=== PATIENT | male | born 1965 | race African-American/Black ===

== ENCOUNTER 2016-08-16 12:17 | Inpatient (IN) | payer OTHER ==
[2016-08-16 13:40] VITALS: BMI 24.3
--- NOTE | 2016-08-16 14:03 | HP ---
CIWA Score - CIWA Score Nausea/Vomitin Muscle Tremors: 3 Anxiety: 3 Agitation: 3 Paroxysmal Sweats: 2 Orientation: 0-Oriented Tacttile Disturbances: 2-Mild Itch/Numbness/Burn Auditory Disturbances: 2-Mild Harshness/Frighten Visual Disturbances: 2-Mild Sensitivity Headache: 2-Mild CIWA-Ar Total Score: 22 Admission ROS BHS - HPI Chief Complaint: I NEED HELP TO STOP DRINKING ALCOHOL,COCAINE AND MARIJUANA History of Present Illness: THIS 51 YEARS OLD MALE WITH ALCOHOL,COCAINE AND MARIJUANA DEPENDENCE,LAST DETOX [facility] IN 04/15 [place] ALCOHOL RELATED HTN LONGEST PERIOD OF SOBRIETY 8 MONTHS OLD [place] Exam Limitations: No Limitations - Ebola screening Have you traveled outside of the country in the last 21 days: No Have you had contact with anyone from an Ebola affected area: No Have you been sick,other than usual withdrawal symptoms: No - Review of Systems Constitutional: Loss of Appetite, Malaise, Night Sweats, Changes in sleep, Weakness EENT: reports: Nose Congestion Respiratory: reports: No Symptoms reported Cardiac: reports: No Symptoms Reported, Other ([facility] [place] IN 2014) GI: reports: Nausea, Poor Appetite, Abdominal cramping : reports: No Symptoms Reported Musculoskeletal: reports: Back Pain, Muscle Pain Neuro: reports: Headache, Tremors Endocrine: reports: No Symptoms Reported Hematology: reports: No Symptoms Reported Psychiatric: reports: No Sypmtoms Reported, Judgement Intact, Mood/Affect Appropiate, Orientated x3 Patient History - Patient Medical History Hx Anemia: No Hx Asthma: No Hx Chronic Obstructive Pulmonary Disease (COPD): No Hx Cancer: No Hx Cardiac Disorders: Yes (OLD [place] 2 YEARS AGO) Hx Congestive Heart Failure: No Hx Hypertension: Yes (ON MED) Hx Hypercholesterolemia: Yes (ON MED) Hx Pacemaker: No HX Cerebrovascular Accident: No Hx Seizures: No Hx Dementia: No Hx Diabetes: No Hx Gastrointestinal Disorders: No Hx Liver Disease: No Hx Genitourinary Disorders: No Hx Sexually Transmitted Disorders: No Hx Renal Disease (ESRD): No Hx Thyroid Disease: No Hx Human Immunodeficiency Virus (HIV): No (LAST 04/15) Hx Hepatitis C: No Hx Depression: No Hx Suicide Attempt: No Hx Bipolar Disorder: No Hx Schizophrenia: No Other Medical History: NO SUICIDAL,NO HOMICIDAL - Patient Surgical History Hx Abdominal Surgery: Yes (BILATERAL INGUINAL HERNIA) - PPD History Previous Implant?: Yes Documented Results: Positive w/o proof PPD to be Administered?: Yes - Smoking Cessation Smoking history: Current every day smoker Have you smoked in the past 12 months: Yes Aproximately how many cigarettes per day: 20 Hx Chewing Tobacco Use: No Initiated information on smoking cessation: Yes 'Breaking Loose' booklet given: 08/16/16 - Substance & Tx. History Hx Alcohol Use: Yes Hx Substance Use: Yes Substance Use Type: Alcohol, Cocaine, Marijuana Hx Substance Use Treatment: Yes (04/15 [facility]) Family Disease History - Family Disease History Family History: Denies Admission Physical Exam [facility] - Vital Signs Vital Signs: Vital Signs - 24 hr 08/16/16 13:37 Temperature 98.6 F Pulse Rate 59 L Respiratory 18 Rate Blood Pressure 124/86 - Physical General Appearance: Yes: Moderate Distress, Tremorous, Irritable, Sweating, Anxious HEENTM: Yes: Normal ENT Inspection, REBECCA, Pharynx Normal Respiratory: Yes: Within Normal Limits, Lungs Clear, Normal Breath Sounds, No Respiratory Distress Neck: Yes: Within Normal Limits, Supple, Trachea in good position Breast: Yes: Within Normal Limits Cardiology: Yes: Within Normal Limits, Regular Rate, S1, S2 Abdominal: Yes: Within Normal Limits, Normal Bowel Sounds, Non Tender, Flat, Soft Genitourinary: Yes: Within Normal Limits Back: Yes: Muscle Spasm Musculoskeletal: Yes: full range of Motion, Back pain, Muscle Pain Extremities: Yes: Within Normal Limits, Normal Range of Motion, Tremors 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: Yes: product manager II-XII NML intact, Fully Oriented, Alert, Motor Strength 5/5 Integumentary: Yes: Dry Lymphatic: Yes: Within Normal Limits - Diagnostic (1) Alcohol dependence with uncomplicated withdrawal Current Visit: Yes Status: Acute (2) Cocaine dependence Current Visit: Yes Status: Acute (3) Cannabis dependence Current Visit: Yes Status: Acute (4) Hypertension Current Visit: Yes Status: Acute (5) Old [place] (myocardial infarction) Current Visit: Yes Status: Acute (6) Low back pain Current Visit: Yes Status: Acute (7) Hyperlipidemia Current Visit: Yes Status: Acute Cleared for Admission [facility] - Detox or Rehab [facility] Level of Care: Medically Managed Detox Regimen/Protocol: Librium S Breath Alcohol Content Breath Alcohol Content: 0 Urine Drug Screen - Results Drug Screen Negative: No Urine Drug Screen Results: THC-Marijuana, DEEPIKA-Cocaine
[2016-08-16] MEDS ORDERED: guaiFENesin/D-METHORPHAN HB 10 ML UNIT-DOSE CUPS PO PRN (14:27)
[2016-08-16] MEDS ORDERED: diphenhydrAMINE HCL 50 MG CAPSULE PO PRN (14:27)
[2016-08-16] MEDS ORDERED: IBUPROFEN 400 MG TABLET (FP) PO PRN (14:27)
[2016-08-16] MEDS ORDERED: ACETAMINOPHEN 325 MG TABLET (FP) PO PRN (14:27)
[2016-08-16] MEDS ORDERED: MAGNESIUM HYDROX 2400MG/30ML ORAL SUSPENSION 30 ML CUP PO PRN (14:27)
[2016-08-16] MEDS ORDERED: MAGNESIUM CITRATE 300 ML BOTTLE PO PRN (14:27)
[2016-08-16] MEDS ORDERED: LOPERAMIDE HCL 2 MG CAPSULE PO PRN (14:27)
[2016-08-16] MEDS ORDERED: MENTHOL/PHENOL 1 EACH UD MM PRN (14:27)
[2016-08-16] MEDS ORDERED: chlordiazePOXIDE HCL 25 MG CAPSULE PO PRN (14:27)
[2016-08-16] MEDS ORDERED: hydrOXYzine PAMOATE 50 MG CAPSULE (FP) PO PRN (14:27)
[2016-08-16] MEDS ORDERED: P-EPHED 60MG/TRIPROLIDI 2.5MG TABLET PO PRN (14:27)
[2016-08-16] MEDS ORDERED: [UNRECOGNIZED DRUG - REMARK] NS SCH (14:45)
[2016-08-16] MEDS ORDERED: chlordiazePOXIDE HCL 25 MG CAPSULE PO ONE (15:04)
[2016-08-16] MEDS: NICOTINE 21 MG/24 HOURS TOPICAL PATCH TD SCH (15:37)
[2016-08-16] MEDS: NICOTINE POLACRILEX 2 MG GUM BC PRN (15:37)
[2016-08-16 16:55] LABS: URINE APPEARANCE CLEAR; URINE BILIRUBIN NEGATIVE (NEGATIVE); URINE COLOR YELLOW; URINE GLUCOSE (UA) NEGATIVE (NEGATIVE); URINE KETONE NEGATIVE (NEGATIVE); URINE NITRITE NEGATIVE (NEGATIVE); URINE PROTEIN NEGATIVE (NEGATIVE); URINE UROBILINOGEN NEGATIVE E.U./dl (0.2-1.0)
[2016-08-16 17:33] LABS: URINE BLOOD 1+ (NEGATIVE); URINE LEUK ESTERASE TRACE (NEGATIVE)
[2016-08-16 17:42] LABS: URINE MUCUS RARE; URINE RBC 2 /hpf (0-3); URINE WBC 4 /hpf (3-5)
[2016-08-16] MEDS: chlordiazePOXIDE HCL 25 MG CAPSULE PO SCH ×2 (17:45→22:19)
[2016-08-16] MEDS: MAG HYDROX/AL HYDROX/SIMETH 30 ML UNIT-DOSE CUP PO PRN (21:10)
[2016-08-16] MEDS: ATORVASTATIN CA 40 MG TABLET (FP) PO SCH (22:18)
[2016-08-16] MEDS: THIAMINE HCL 100 MG TABLET (FP) PO SCH (22:18)
[2016-08-16] MEDS: FLUTICASONE PROP 0.05% 16 GM NASAL SPRAY NS SCH (22:19)
[2016-08-17] MEDS: chlordiazePOXIDE HCL 25 MG CAPSULE PO SCH ×4 (05:06→22:27)
[2016-08-17] MEDS ORDERED: PATIENT'S OWN MEDICATION (NON-FORMULARY) (Metoprolol Tartrate [Lopressor] 100 MG) PO SCH (10:00)
[2016-08-17] MEDS ORDERED: PATIENT'S OWN MEDICATION (NON-FORMULARY) (Lisinopril [Zestril] 2.5 MG) PO SCH (10:00)
[2016-08-17] MEDS: NICOTINE 21 MG/24 HOURS TOPICAL PATCH TD SCH (10:30)
[2016-08-17] MEDS: METOPROLOL TARTRATE 50 MG TABLET (FP) PO SCH (10:32)
[2016-08-17] MEDS: PRENATAL VITAMINS W/ FOLIC ACID TABLET (FP) PO SCH (10:32)
[2016-08-17] MEDS: ASPIRIN 81 MG CHEWABLE TABLETS PO SCH (10:33)
[2016-08-17] MEDS: FLUTICASONE PROP 0.05% 16 GM NASAL SPRAY NS SCH ×2 (10:35→22:27)
[2016-08-17] MEDS: LORATADINE 10 MG TABLET PO SCH (10:35)
[2016-08-17] MEDS: LISINOPRIL 5 MG TABLET (FP) PO SCH (10:36)
[2016-08-17] MEDS: NICOTINE POLACRILEX 2 MG GUM BC PRN ×3 (10:37→16:57)
[2016-08-17 10:52] LABS: MCH 35.6 pg (25.7-33.7); MCHC 34.1 g/dl (32.0-35.9); MEAN CELL VOLUME 104.5 fl (80-96); MEAN PLT VOLUME 9.5 fl (7.5-11.1); PLATELET COUNT 219 K/MM3 (134-434); RDW 13.1 % (11.9-15.9); WHITE BLOOD COUNT 9.9 K/mm3 (4.0-10.0)
[2016-08-17 11:01] LABS: ALBUMIN 3.8 g/dl (3.4-5.0); ALK PHOS 44 U/L (45-117); ANION GAP 7 (8-16); CALCIUM 8.7 mg/dL (8.5-10.1); CO2 26 mmol/L (21-32); COCKROFT - GAULT 100.48; CREATININE 0.9 mg/dL (0.7-1.3); GLUCOSE,RANDOM 96 mg/dL (74-106); SGOT/AST 28 U/L (15-37); SGPT/ALT 51 U/L (12-78); TOT PROT 6.9 g/dl (6.4-8.2)
[2016-08-17 13:51] LABS: SICKLE CELL SCREEN NEGATIVE (NEGATIVE)
--- NOTE | 2016-08-17 14:31 | EKG ---
Test Reason : Blood Pressure : / mmHG Vent. Rate : 060 BPM Atrial Rate : 060 BPM P-R Int : 182 ms QRS Dur : 104 ms QT Int : 384 ms P-R-T Axes : 044 085 039 degrees QTc Int : 384 ms NORMAL SINUS RHYTHM NORMAL ECG NO PREVIOUS ECGS AVAILABLE Confirmed by WILLIAMS JHAVERI, JOANNA ([id number]) on 08/17/2016 2:30:42 PM Referred By: Confirmed By:JOANNA KRAMER MD
--- NOTE | 2016-08-17 16:38 | PN ---
S CIWA - CIWA Score Nausea/Vomitin-No Nausea/No Vomiting Muscle Tremors: 4-Moderate,w/Arms Extend Anxiety: 3 Agitation: 3 Paroxysmal Sweats: 3 Orientation: 0-Oriented Tacttile Disturbances: 0-None Auditory Disturbances: 0-None Visual Disturbances: 0-None Headache: 0-None Present CIWA-Ar Total Score: 13 BHS Progress Note (SOAP) Subjective: Anxiety,tremors,sweating,interrupted sleep,restless Objective: 08/17/16 16:37 Vital Signs - 8 hr 08/17/16 08/17/16 10:02 13:20 Temperature 97.8 F 97.0 F L Pulse Rate 112 H 60 Respiratory 20 18 Rate Blood Pressure 122/86 149/99 Laboratory Tests 08/16/16 08/17/16 08/17/16 15:00 06:00 06:00 WBC 9.9 RBC 3.98 L Hgb 14.2 Hct 41.6 MCV 104.5 H MCHC 34.1 RDW 13.1 Plt Count 219 MPV 9.5 Sickle Cell Screen Negative Sodium 140 Potassium 4.4 Chloride 107 Carbon Dioxide 26 Anion Gap 7 L BUN 12 Creatinine 0.9 Creat Clearance w eGFR > 60 Random Glucose 96 Calcium 8.7 Total Bilirubin 1.0 AST 28 ALT 51 Alkaline Phosphatase 44 L Total Protein 6.9 Albumin 3.8 Urine Color Yellow Urine Appearance Clear Urine pH 5.0 Ur Specific [place] 1.023 Urine Protein Negative Urine Glucose (UA) Negative Urine Ketones Negative Urine Blood 1+ H Urine Nitrite Negative Urine Bilirubin Negative Urine Urobilinogen Negative Ur Leukocyte Esterase Trace H Urine RBC 2 Urine WBC 4 Ur Epithelial Cells Rare Urine Mucus Rare RPR Titer 08/17/16 06:00 WBC RBC Hgb Hct MCV MCHC RDW Plt Count MPV Sickle Cell Screen Sodium Potassium Chloride Carbon Dioxide Anion Gap BUN Creatinine Creat Clearance w eGFR Random Glucose Calcium Total Bilirubin AST ALT Alkaline Phosphatase Total Protein Albumin Urine Color Urine Appearance Urine pH Ur Specific [place] Urine Protein Urine Glucose (UA) Urine Ketones Urine Blood Urine Nitrite Urine Bilirubin Urine Urobilinogen Ur Leukocyte Esterase Urine RBC Urine WBC Ur Epithelial Cells Urine Mucus RPR Titer Nonreactive labs noted Assessment: 08/17/16 16:37 Withdrawal sx. Plan: Continue detox
[2016-08-17] MEDS: ATORVASTATIN CA 40 MG TABLET (FP) PO SCH (22:27)
[2016-08-17] MEDS: THIAMINE HCL 100 MG TABLET (FP) PO SCH (22:27)
[2016-08-17] MEDS: MAG HYDROX/AL HYDROX/SIMETH 30 ML UNIT-DOSE CUP PO PRN (22:30)
[2016-08-18] MEDS: chlordiazePOXIDE HCL 25 MG CAPSULE PO SCH ×2 (05:40→11:32)
[2016-08-18] MEDS: NICOTINE 21 MG/24 HOURS TOPICAL PATCH TD SCH (11:28)
[2016-08-18] MEDS: LISINOPRIL 5 MG TABLET (FP) PO SCH (11:28)
[2016-08-18] MEDS: METOPROLOL TARTRATE 50 MG TABLET (FP) PO SCH (11:28)
[2016-08-18] MEDS: ASPIRIN 81 MG CHEWABLE TABLETS PO SCH (11:28)
[2016-08-18] MEDS: LORATADINE 10 MG TABLET PO SCH (11:29)
[2016-08-18] MEDS: FLUTICASONE PROP 0.05% 16 GM NASAL SPRAY NS SCH ×2 (11:29→22:33)
[2016-08-18] MEDS: PRENATAL VITAMINS W/ FOLIC ACID TABLET (FP) PO SCH (11:30)
[2016-08-18] MEDS: NICOTINE POLACRILEX 2 MG GUM BC PRN ×2 (11:34→15:45)
--- NOTE | 2016-08-18 12:53 | PN ---
S CIWA - CIWA Score Nausea/Vomitin Muscle Tremors: 2 Anxiety: 2 Agitation: 4-Moderately Restless Paroxysmal Sweats: 2 Orientation: 4Disoriented Place/Person Tacttile Disturbances: 2-Mild Itch/Numbness/Burn Auditory Disturbances: 0-None Visual Disturbances: 0-None Headache: 0-None Present CIWA-Ar Total Score: 19 BHS Progress Note (SOAP) Subjective: Nausea, Fatigue, Diarrhea, Stomach Ache, Interrupted sleep, Sweating. Objective: PT. A & O X 1 (DISORIENTED ABOUT DAY / DATE AND ABOUT LOCATION). 08/18/16 12:49 Vital Signs Temperature 95.5 F L 08/18/16 06:31 Pulse Rate 87 08/18/16 09:54 Respiratory Rate 20 08/18/16 09:54 Blood Pressure 131/97 08/18/16 09:54 O2 Sat by Pulse Oximetry (%) Laboratory Last Values WBC 9.9 K/mm3 (4.0-10.0) 08/17/16 06:00 RBC 3.98 M/mm3 (4.00-5.60) L 08/17/16 06:00 Hgb 14.2 GM/dL (11.7-16.9) 08/17/16 06:00 Hct 41.6 % (35.4-49) 08/17/16 06:00 MCV 104.5 fl (80-96) H 08/17/16 06:00 MCHC 34.1 g/dl (32.0-35.9) 08/17/16 06:00 RDW 13.1 % (11.9-15.9) 08/17/16 06:00 Plt Count 219 K/MM3 (134-434) 08/17/16 06:00 MPV 9.5 fl (7.5-11.1) 08/17/16 06:00 Sickle Cell Screen Negative (NEGATIVE) 08/17/16 06:00 Sodium 140 mmol/L (136-145) 08/17/16 06:00 Potassium 4.4 mmol/L (3.5-5.1) 08/17/16 06:00 Chloride 107 mmol/L (98-107) 08/17/16 06:00 Carbon Dioxide 26 mmol/L (21-32) 08/17/16 06:00 Anion Gap 7 (8-16) L 08/17/16 06:00 BUN 12 mg/dL (7-18) 08/17/16 06:00 Creatinine 0.9 mg/dL (0.7-1.3) 08/17/16 06:00 Creat Clearance w eGFR > 60 (>60) 08/17/16 06:00 Random Glucose 96 mg/dL (74-106) 08/17/16 06:00 Calcium 8.7 mg/dL (8.5-10.1) 08/17/16 06:00 Total Bilirubin 1.0 mg/dL (0.2-1.0) 08/17/16 06:00 AST 28 U/L (15-37) 08/17/16 06:00 ALT 51 U/L (12-78) 08/17/16 06:00 Alkaline Phosphatase 44 U/L (45-117) L 08/17/16 06:00 Total Protein 6.9 g/dl (6.4-8.2) 08/17/16 06:00 Albumin 3.8 g/dl (3.4-5.0) 08/17/16 06:00 Urine Color Yellow 08/16/16 15:00 Urine Appearance Clear 08/16/16 15:00 Urine pH 5.0 (5.0-8.0) 08/16/16 15:00 Ur Specific [place] 1.023 (1.001-1.035) 08/16/16 15:00 Urine Protein Negative (NEGATIVE) 08/16/16 15:00 Urine Glucose (UA) Negative (NEGATIVE) 08/16/16 15:00 Urine Ketones Negative (NEGATIVE) 08/16/16 15:00 Urine Blood 1+ (NEGATIVE) H 08/16/16 15:00 Urine Nitrite Negative (NEGATIVE) 08/16/16 15:00 Urine Bilirubin Negative (NEGATIVE) 08/16/16 15:00 Urine Urobilinogen Negative E.U./dl (0.2-1.0) 08/16/16 15:00 Ur Leukocyte Esterase Trace (NEGATIVE) H 08/16/16 15:00 Urine RBC 2 /hpf (0-3) 08/16/16 15:00 Urine WBC 4 /hpf (3-5) 08/16/16 15:00 Ur Epithelial Cells Rare /hpf (FEW) 08/16/16 15:00 Urine Mucus Rare 08/16/16 15:00 RPR Titer Nonreactive (NONREACTIVE) 08/17/16 06:00 LABS NOTED. Assessment: 08/18/16 12:51 WITHDRAWAL SYMPTOMS. Plan: CONTINUE DETOX. ADVISED PATIENT TO FOLLOW-UP WITH [facility] / REHAB MEDICAL PROVIDER AFTER DISCHARGE FROM DETOX FOR GENERAL MEDICAL ASSESSMENT AND FOR ABNORMAL ADMISSION LAB VALUES.
[2016-08-18] MEDS: chlordiazePOXIDE 5 MG CAPSULE PO SCH ×2 (17:34→22:32)
[2016-08-18] MEDS: THIAMINE HCL 100 MG TABLET (FP) PO SCH (22:32)
[2016-08-18] MEDS: ATORVASTATIN CA 40 MG TABLET (FP) PO SCH (22:32)
[2016-08-19] MEDS: chlordiazePOXIDE 5 MG CAPSULE PO SCH ×2 (05:42→10:18)
--- NOTE | 2016-08-19 08:23 | PN ---
BHS Progress Note (SOAP) Subjective: nausea , sweats, interrupted sleep, anxiety, tremors Objective: 08/19/16 08:22 Vital Signs - 8 hr 08/19/16 08/19/16 08/19/16 00:30 03:30 06:28 Temperature 96.6 F L Pulse Rate 78 Respiratory 16 18 18 Rate Blood Pressure 119/83 Laboratory Tests 08/16/16 08/17/16 08/17/16 15:00 06:00 06:00 WBC 9.9 RBC 3.98 L Hgb 14.2 Hct 41.6 MCV 104.5 H MCHC 34.1 RDW 13.1 Plt Count 219 MPV 9.5 Sickle Cell Screen Negative Sodium 140 Potassium 4.4 Chloride 107 Carbon Dioxide 26 Anion Gap 7 L BUN 12 Creatinine 0.9 Creat Clearance w eGFR > 60 Random Glucose 96 Calcium 8.7 Total Bilirubin 1.0 AST 28 ALT 51 Alkaline Phosphatase 44 L Total Protein 6.9 Albumin 3.8 Urine Color Yellow Urine Appearance Clear Urine pH 5.0 Ur Specific [place] 1.023 Urine Protein Negative Urine Glucose (UA) Negative Urine Ketones Negative Urine Blood 1+ H Urine Nitrite Negative Urine Bilirubin Negative Urine Urobilinogen Negative Ur Leukocyte Esterase Trace H Urine RBC 2 Urine WBC 4 Ur Epithelial Cells Rare Urine Mucus Rare RPR Titer 08/17/16 06:00 WBC RBC Hgb Hct MCV MCHC RDW Plt Count MPV Sickle Cell Screen Sodium Potassium Chloride Carbon Dioxide Anion Gap BUN Creatinine Creat Clearance w eGFR Random Glucose Calcium Total Bilirubin AST ALT Alkaline Phosphatase Total Protein Albumin Urine Color Urine Appearance Urine pH Ur Specific [place] Urine Protein Urine Glucose (UA) Urine Ketones Urine Blood Urine Nitrite Urine Bilirubin Urine Urobilinogen Ur Leukocyte Esterase Urine RBC Urine WBC Ur Epithelial Cells Urine Mucus RPR Titer Nonreactive macrocytosis Assessment: 08/19/16 08:23 withdrawal sx Plan: cont detox, encourage fluids and ambulation
[2016-08-19] MEDS: FLUTICASONE PROP 0.05% 16 GM NASAL SPRAY NS SCH ×2 (10:18→22:34)
[2016-08-19] MEDS: LORATADINE 10 MG TABLET PO SCH (10:18)
[2016-08-19] MEDS: PRENATAL VITAMINS W/ FOLIC ACID TABLET (FP) PO SCH (10:18)
[2016-08-19] MEDS: ASPIRIN 81 MG CHEWABLE TABLETS PO SCH (10:18)
[2016-08-19] MEDS: METOPROLOL TARTRATE 50 MG TABLET (FP) PO SCH (10:18)
[2016-08-19] MEDS: NICOTINE 21 MG/24 HOURS TOPICAL PATCH TD SCH (10:19)
[2016-08-19] MEDS: LISINOPRIL 5 MG TABLET (FP) PO SCH (10:19)
[2016-08-19] MEDS: NICOTINE POLACRILEX 2 MG GUM BC PRN (10:20)
[2016-08-19] MEDS: chlordiazePOXIDE HCL 10 MG CAPSULE PO SCH ×2 (17:33→22:34)
[2016-08-19] MEDS: ATORVASTATIN CA 40 MG TABLET (FP) PO SCH (22:34)
[2016-08-19] MEDS: THIAMINE HCL 100 MG TABLET (FP) PO SCH (22:34)
[2016-08-20] MEDS: chlordiazePOXIDE HCL 10 MG CAPSULE PO SCH (05:35)
[2016-08-20 09:38] VITALS: BP 123/87; PULSE 87; TEMP 98.1
[2016-08-20] MEDS: ASPIRIN 81 MG CHEWABLE TABLETS PO SCH (09:50)
[2016-08-20] MEDS: PRENATAL VITAMINS W/ FOLIC ACID TABLET (FP) PO SCH (09:50)
[2016-08-20] MEDS: METOPROLOL TARTRATE 50 MG TABLET (FP) PO SCH (09:51)
[2016-08-20] MEDS: LISINOPRIL 5 MG TABLET (FP) PO SCH (09:51)
[2016-08-20] MEDS: FLUTICASONE PROP 0.05% 16 GM NASAL SPRAY NS SCH (09:52)
[2016-08-20] MEDS: LORATADINE 10 MG TABLET PO SCH (09:52)
[2016-08-20] MEDS: NICOTINE 21 MG/24 HOURS TOPICAL PATCH TD SCH (09:53)
[2016-08-20] MEDS: NICOTINE POLACRILEX 2 MG GUM BC PRN (09:56)
--- NOTE | 2016-08-20 10:19 | DS ---
[facility] Detox Discharge Summary Admission Date: 08/16/16 Discharge Date: 08/20/16 - History Present History: Alcohol Dependence, Cannabis Dependence, Cocaine Dependence Pertinent Past History: HLD, HTN,[place] - Physical Exam Results Vital Signs: Vital Signs Temperature 98.1 F 08/20/16 09:37 Pulse Rate 87 08/20/16 09:37 Respiratory Rate 18 08/20/16 09:37 Blood Pressure 123/87 08/20/16 09:37 O2 Sat by Pulse Oximetry (%) Pertinent Admission Physical Exam Findings: withdrawal Laboratory Last Values WBC 9.9 K/mm3 (4.0-10.0) 08/17/16 06:00 RBC 3.98 M/mm3 (4.00-5.60) L 08/17/16 06:00 Hgb 14.2 GM/dL (11.7-16.9) 08/17/16 06:00 Hct 41.6 % (35.4-49) 08/17/16 06:00 MCV 104.5 fl (80-96) H 08/17/16 06:00 MCHC 34.1 g/dl (32.0-35.9) 08/17/16 06:00 RDW 13.1 % (11.9-15.9) 08/17/16 06:00 Plt Count 219 K/MM3 (134-434) 08/17/16 06:00 MPV 9.5 fl (7.5-11.1) 08/17/16 06:00 Sickle Cell Screen Negative (NEGATIVE) 08/17/16 06:00 Sodium 140 mmol/L (136-145) 08/17/16 06:00 Potassium 4.4 mmol/L (3.5-5.1) 08/17/16 06:00 Chloride 107 mmol/L (98-107) 08/17/16 06:00 Carbon Dioxide 26 mmol/L (21-32) 08/17/16 06:00 Anion Gap 7 (8-16) L 08/17/16 06:00 BUN 12 mg/dL (7-18) 08/17/16 06:00 Creatinine 0.9 mg/dL (0.7-1.3) 08/17/16 06:00 Creat Clearance w eGFR > 60 (>60) 08/17/16 06:00 Random Glucose 96 mg/dL (74-106) 08/17/16 06:00 Calcium 8.7 mg/dL (8.5-10.1) 08/17/16 06:00 Total Bilirubin 1.0 mg/dL (0.2-1.0) 08/17/16 06:00 AST 28 U/L (15-37) 08/17/16 06:00 ALT 51 U/L (12-78) 08/17/16 06:00 Alkaline Phosphatase 44 U/L (45-117) L 08/17/16 06:00 Total Protein 6.9 g/dl (6.4-8.2) 08/17/16 06:00 Albumin 3.8 g/dl (3.4-5.0) 08/17/16 06:00 Urine Color Yellow 08/16/16 15:00 Urine Appearance Clear 08/16/16 15:00 Urine pH 5.0 (5.0-8.0) 08/16/16 15:00 Ur Specific [place] 1.023 (1.001-1.035) 08/16/16 15:00 Urine Protein Negative (NEGATIVE) 08/16/16 15:00 Urine Glucose (UA) Negative (NEGATIVE) 08/16/16 15:00 Urine Ketones Negative (NEGATIVE) 08/16/16 15:00 Urine Blood 1+ (NEGATIVE) H 08/16/16 15:00 Urine Nitrite Negative (NEGATIVE) 08/16/16 15:00 Urine Bilirubin Negative (NEGATIVE) 08/16/16 15:00 Urine Urobilinogen Negative E.U./dl (0.2-1.0) 08/16/16 15:00 Ur Leukocyte Esterase Trace (NEGATIVE) H 08/16/16 15:00 Urine RBC 2 /hpf (0-3) 08/16/16 15:00 Urine WBC 4 /hpf (3-5) 08/16/16 15:00 Ur Epithelial Cells Rare /hpf (FEW) 08/16/16 15:00 Urine Mucus Rare 08/16/16 15:00 RPR Titer Nonreactive (NONREACTIVE) 08/17/16 06:00 Labs noted sx - Treatment Hospital Course: Detox Protocol Followed, Detoxed Safely, Responded well, Discharged Condition Good - Medication Discharge Medications: Ambulatory Orders Aspirin [ASA -] 81 mg PO DAILY 08/16/16 Atorvastatin Ca [Lipitor] 40 mg PO HS 08/16/16 Fluticasone Propionate [Allergy Relief] 15.8 ml NS DAILY 08/16/16 Lisinopril [Zestril] 2.5 mg PO DAILY 08/16/16 Loratadine [Claritin -] 10 mg PO DAILY 08/16/16 Metoprolol Tartrate [Lopressor] 100 mg PO DAILY 08/16/16 - Diagnosis (1) Alcohol dependence with uncomplicated withdrawal Status: Acute (2) Cannabis dependence Status: Acute (3) Cocaine dependence Status: Acute Qualifiers: Substance use status: uncomplicated Qualified Code(s): F14.20 - Cocaine dependence, uncomplicated (4) Hyperlipidemia Status: Acute Qualifiers: Hyperlipidemia type: pure hypercholesterolemia Qualified Code(s): E78.00 - Pure hypercholesterolemia, unspecified; E78.0 - Pure hypercholesterolemia (5) Hypertension Status: Acute Qualifiers: Hypertension type: essential hypertension Qualified Code(s): I10 - Essential (primary) hypertension - AMA Did Patient Leave Against Medical Advice: No
== END 2016-08-20 09:57 | disposition home or self-care (01) | DRG 774 ==
LOC: YASAS 12:17 → Y3N 14:36
PROVIDERS: ADMIT Internal Medicine; ATTEND Internal Medicine
PROC: HZ2ZZZZ Detoxification Services for Substance Abuse Treatment (ICD-10-PCS; principal; 2016-08-20)
DX: F10.230 Alcohol dependence with withdrawal, uncomplicated (principal); F14.20 Cocaine dependence, uncomplicated; F12.20 Cannabis dependence, uncomplicated; E78.00 Pure hypercholesterolemia, unspecified; I25.2 Old myocardial infarction; I10 Essential (primary) hypertension; M54.5 Low back pain
CPT/HCPCS: 36415; 71010-TC; 80053; 81003; 81015; 85027; 85660; 86593; 93005; 93010

== ENCOUNTER 2016-11-24 10:51 | Inpatient (IN) | payer OTHER ==
[2016-11-24 11:12] VITALS: BMI 24.3
--- NOTE | 2016-11-24 18:09 | HP ---
CIWA Score - CIWA Score Nausea/Vomitin Muscle Tremors: 3 Anxiety: 3 Agitation: 2 Paroxysmal Sweats: 2 Orientation: 0-Oriented Tacttile Disturbances: 0-None Auditory Disturbances: 0-None Visual Disturbances: 0-None Headache: 2-Mild CIWA-Ar Total Score: 14 Admission ROS S - HPI Chief Complaint: WITHDRAWAL SYMPTOMS Allergies/Adverse Reactions: Allergies Allergy/AdvReac Type Severity Reaction Status Date / Time lactose Allergy Severe Verified 11/24/16 14:31 No Known Drug Allergies Allergy Verified 11/24/16 14:31 History of Present Illness: 51 y.o. man with an extensive history of alcohol dependence. He is here seeking detox. He was last here for detox in 07/2016. He does not have a significant period of sobriety. Exam Limitations: No Limitations - Ebola screening Have you traveled outside of the country in the last 21 days: No Have you had contact with anyone from an Ebola affected area: No Have you been sick,other than usual withdrawal symptoms: No - Review of Systems Constitutional: Chills, Loss of Appetite, Changes in sleep EENT: reports: No Symptoms Reported Respiratory: reports: No Symptoms reported Cardiac: reports: No Symptoms Reported GI: reports: Diarrhea : reports: No Symptoms Reported Musculoskeletal: reports: Back Pain Integumentary: reports: No Symptoms Reported Neuro: reports: Headache, Tremors Endocrine: reports: No Symptoms Reported Hematology: reports: No Symptoms Reported Psychiatric: reports: Judgement Intact, Mood/Affect Appropiate, Orientated x3 Other Systems: Reviewed and Negative Patient History - Patient Medical History Hx Anemia: No Hx Asthma: No Hx Chronic Obstructive Pulmonary Disease (COPD): No Hx Cancer: No Hx Cardiac Disorders: Yes (2014) Hx Congestive Heart Failure: No Hx Hypertension: Yes Hx Hypercholesterolemia: Yes (ON MED) Hx Pacemaker: No HX Cerebrovascular Accident: No Hx Seizures: No Hx Dementia: No Hx Diabetes: No Hx Gastrointestinal Disorders: No Hx Liver Disease: No Hx Genitourinary Disorders: No Hx Sexually Transmitted Disorders: No Hx Renal Disease (ESRD): No Hx Thyroid Disease: No Hx Human Immunodeficiency Virus (HIV): No (LAST 04/15) Hx Hepatitis C: No Hx Depression: No Hx Suicide Attempt: No Hx Bipolar Disorder: No Hx Schizophrenia: No - Patient Surgical History Past Surgical History: No Hx Neurologic Surgery: No Hx Cataract Extraction: No Hx Cardiac Surgery: No Hx Lung Surgery: No Hx Breast Surgery: No Hx Breast Biopsy: No Hx Abdominal Surgery: Yes (BILATERAL INGUINAL HERNIA ) Hx Appendectomy: No Hx Cholecystectomy: No Hx Genitourinary Surgery: No Hx Section: No Hx Orthopedic Surgery: No Other Surgical History: Bilateral inguinal hernia repair 01/14 Anesthesia Reaction: No - PPD History Previous Implant?: Yes Documented Results: Positive w/o proof PPD to be Administered?: No - Reproductive History Patient is a Female of Child Bearing Age (11 -55 yrs old): No - Smoking Cessation Smoking history: Current every day smoker Have you smoked in the past 12 months: Yes Aproximately how many cigarettes per day: 20 Hx Chewing Tobacco Use: No Initiated information on smoking cessation: Yes 'Breaking Loose' booklet given: 11/24/16 - Substance & Tx. History Hx Alcohol Use: Yes Hx Substance Use: No Substance Use Type: Alcohol, Cocaine Hx Substance Use Treatment: Yes (Detox here in 07/2016; rehab within the last year ) - Substances Abused Crack Route: Smoking Frequency: Daily Amount used: $500 Age of first use: 19 Date of Last Use: 11/23/16 Alcohol-beer Route: Oral Frequency: Daily Amount used: 4-5 6 pks. Age of first use: 43 Date of Last Use: 11/24/16 Marijuana Route: Smoking Frequency: Daily Amount used: $50 Age of first use: 12 Date of Last Use: 11/24/16 Family Disease History - Family Disease History Family History: Denies Admission Physical Exam BHS - Vital Signs Vital Signs: Vital Signs - 24 hr 11/24/16 11:11 Temperature 97.2 F L Pulse Rate 90 Respiratory 18 Rate Blood Pressure 111/59 - Physical General Appearance: Yes: Tremorous, Irritable, Anxious HEENTM: Yes: Hearing grossly Normal, Normal ENT Inspection, Normocephalic Respiratory: Yes: Chest Non-Tender, Lungs Clear, Normal Breath Sounds, No Respiratory Distress, No Accessory Muscle Use Breast: Yes: Breast Exam Deferred Cardiology: Yes: Regular Rhythm, Regular Rate Abdominal: Yes: Non Tender, Flat Genitourinary: Yes: Other (No complaints reported) Back: Yes: Normal Inspection Musculoskeletal: Yes: Back pain Extremities: Yes: Normal Inspection, Normal Range of Motion, Non-Tender 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: Yes: 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 operator II-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 NML intact, Fully Oriented, Alert, Motor Strength 5/5, Normal Mood/Affect, Normal Response Integumentary: Yes: Normal Color, Dry, Warm Lymphatic: Yes: Within Normal Limits - Diagnostic (1) Alcohol dependence with uncomplicated withdrawal Current Visit: Yes Status: Chronic (2) Cannabis dependence Current Visit: Yes Status: Chronic (3) Cocaine dependence Current Visit: Yes Status: Chronic Qualifiers: Substance use status: uncomplicated Qualified Code(s): F14.20 - Cocaine dependence, uncomplicated (4) Hyperlipidemia Current Visit: Yes Status: Chronic Qualifiers: Hyperlipidemia type: pure hypercholesterolemia Qualified Code(s): E78.00 - Pure hypercholesterolemia, unspecified; E78.0 - Pure hypercholesterolemia (5) Hypertension Current Visit: Yes Status: Chronic Qualifiers: Hypertension type: essential hypertension Qualified Code(s): I10 - Essential (primary) hypertension (6) Low back pain Current Visit: Yes Status: Chronic (7) Old [place] (myocardial infarction) Current Visit: No Status: Acute (8) PPD positive Current Visit: No Status: Acute Cleared for Admission S - Detox or Rehab [facility] Level of Care: Medically Managed Detox Regimen/Protocol: Librium [facility] Breath Alcohol Content Breath Alcohol Content: 0 Urine Drug Screen - Results Drug Screen Negative: No Urine Drug Screen Results: THC-Marijuana, DEEPIKA-Cocaine
[2016-11-24] MEDS ORDERED: MAG HYDROX/AL HYDROX/SIMETH 30 ML UNIT-DOSE CUP PO PRN (18:17)
[2016-11-24] MEDS ORDERED: P-EPHED 60MG/TRIPROLIDI 2.5MG TABLET PO PRN (18:17)
[2016-11-24] MEDS ORDERED: chlordiazePOXIDE HCL 25 MG CAPSULE PO PRN (18:17)
[2016-11-24] MEDS ORDERED: hydrOXYzine PAMOATE 50 MG CAPSULE (FP) PO PRN (18:17)
[2016-11-24] MEDS ORDERED: LOPERAMIDE HCL 2 MG CAPSULE PO PRN (18:17)
[2016-11-24] MEDS ORDERED: chlordiazePOXIDE HCL 25 MG CAPSULE PO ONE (18:17)
[2016-11-24] MEDS ORDERED: MENTHOL/PHENOL 1 EACH UD MM PRN (18:17)
[2016-11-24] MEDS ORDERED: ACETAMINOPHEN 325 MG TABLET (FP) PO PRN (18:17)
[2016-11-24] MEDS ORDERED: guaiFENesin/D-METHORPHAN HB 10 ML UNIT-DOSE CUPS PO PRN (18:17)
[2016-11-24] MEDS ORDERED: MAGNESIUM HYDROX 2400MG/30ML ORAL SUSPENSION 30 ML CUP PO PRN (18:17)
[2016-11-24] MEDS ORDERED: MAGNESIUM CITRATE 300 ML BOTTLE PO PRN (18:17)
[2016-11-24] MEDS ORDERED: METOPROLOL SUCCINATE 100 MG TAB.SR.24H (FP) PO ONE (18:59)
[2016-11-24] MEDS ORDERED: diphenhydrAMINE HCL 50 MG CAPSULE PO PRN (22:00)
[2016-11-24] MEDS: THIAMINE HCL 100 MG TABLET (FP) PO SCH (22:21)
[2016-11-24] MEDS: chlordiazePOXIDE HCL 25 MG CAPSULE PO SCH (22:21)
[2016-11-24] MEDS: ATORVASTATIN CA 40 MG TABLET (FP) PO SCH (22:21)
[2016-11-25] MEDS: chlordiazePOXIDE HCL 25 MG CAPSULE PO SCH ×4 (05:30→22:19)
[2016-11-25 07:41] LABS: URINE APPEARANCE CLOUDY; URINE BILIRUBIN NEGATIVE (NEGATIVE); URINE BLOOD 1+ (NEGATIVE); URINE COLOR AMBER; URINE GLUCOSE (UA) NEGATIVE (NEGATIVE); URINE KETONE NEGATIVE (NEGATIVE); URINE NITRITE NEGATIVE (NEGATIVE); URINE PROTEIN NEGATIVE (NEGATIVE); URINE UROBILINOGEN NEGATIVE mg/dL (0.2-1.0)
[2016-11-25 07:52] LABS: URINE LEUK ESTERASE 1+ (NEGATIVE)
[2016-11-25 07:57] LABS: URINE MUCUS FEW; URINE RBC <1 /hpf (0-3); URINE WBC 11 /hpf (3-5)
--- NOTE | 2016-11-25 09:25 | EKG ---
Test Reason : Blood Pressure : / mmHG Vent. Rate : 063 BPM Atrial Rate : 063 BPM P-R Int : 180 ms QRS Dur : 124 ms QT Int : 418 ms P-R-T Axes : 054 088 054 degrees QTc Int : 427 ms NORMAL SINUS RHYTHM LEFT VENTRICULAR HYPERTROPHY WITH QRS WIDENING ABNORMAL ECG WHEN COMPARED WITH ECG OF 16-AUG-2016 14:55, NONSPECIFIC T WAVE ABNORMALITY NO LONGER EVIDENT IN LATERAL LEADS Confirmed by MADAY MERAZ MD ([id number]) on 11/25/2016 9:25:18 AM Referred By: Confirmed By:MADAY MERAZ MD
[2016-11-25] MEDS ORDERED: METOPROLOL TARTRATE 50 MG TABLET (FP) PO SCH (10:00)
[2016-11-25] MEDS: NICOTINE 21 MG/24 HOURS TOPICAL PATCH TD SCH (10:12)
[2016-11-25] MEDS: LISINOPRIL 5 MG TABLET (FP) PO SCH (10:12)
[2016-11-25] MEDS: ASPIRIN 81 MG CHEWABLE TABLETS PO SCH (10:13)
[2016-11-25] MEDS: LORATADINE 10 MG TABLET PO SCH (10:13)
[2016-11-25] MEDS: PRENATAL VITAMINS W/ FOLIC ACID TABLET (FP) PO SCH (10:13)
[2016-11-25] MEDS: NICOTINE POLACRILEX 2 MG GUM BUC PRN (10:14)
[2016-11-25 10:23] LABS: MCHC 33.8 g/dl (32.0-35.9); MEAN CELL VOLUME 103.4 fl (80-96); MEAN PLT VOLUME 9.5 fl (7.5-11.1); PLATELET COUNT 246 K/MM3 (134-434); RDW 12.7 % (11.9-15.9); WHITE BLOOD COUNT 6.7 K/mm3 (4.0-10.0)
[2016-11-25] MEDS ORDERED: ONDANSETRON *ODT* 4 MG TABLET SL PRN (10:30)
[2016-11-25] MEDS ORDERED: [UNRECOGNIZED DRUG - REMARK] NS SCH (10:30)
[2016-11-25 10:32] LABS: ALBUMIN 3.3 g/dl (3.4-5.0); ALK PHOS 37 U/L (45-117); ANION GAP 9 (8-16); BILIRUBIN,TOTAL 0.7 mg/dL (0.2-1.0); CALCIUM 8.3 mg/dL (8.5-10.1); CO2 24 mmol/L (21-32); CREATININE 0.7 mg/dL (0.7-1.3); GLUCOSE,RANDOM 90 mg/dL (74-106); SGOT/AST 12 U/L (15-37); SGPT/ALT 18 U/L (12-78); TOT PROT 6.1 g/dl (6.4-8.2)
--- NOTE | 2016-11-25 11:32 | PN ---
S CIWA - CIWA Score Nausea/Vomitin Muscle Tremors: 3 Anxiety: 4-Mod. Anxious/Guarded Agitation: 3 Paroxysmal Sweats: 3 Orientation: 0-Oriented Tacttile Disturbances: 0-None Auditory Disturbances: 0-None Visual Disturbances: 0-None Headache: 3-Moderate CIWA-Ar Total Score: 19 S Progress Note (SOAP) Subjective: Sweating, Tremors, Nausea, Stomach Cramping, Interrupted sleep, Fatigue, Lower Back Ache, Diarrhea. Objective: PT. A & O X 3, OBSERVED AMBULATING ON UNIT. NO ACUTE DISTRESS. PT. DENIES CHEST PAIN. 11/25/16 11:29 Vital Signs Temperature 96.7 F L 11/25/16 09:24 Pulse Rate 60 11/25/16 09:24 Respiratory Rate 18 11/25/16 09:24 Blood Pressure 126/86 11/25/16 09:24 O2 Sat by Pulse Oximetry (%) Laboratory Tests 11/25/16 11/25/16 11/25/16 07:00 07:00 07:25 WBC 6.7 D RBC 3.86 L Hgb 13.5 Hct 39.9 MCV 103.4 H MCH 35.0 H MCHC 33.8 RDW 12.7 Plt Count 246 MPV 9.5 Sodium 139 Potassium 3.9 Chloride 106 Carbon Dioxide 24 Anion Gap 9 BUN 9 D Creatinine 0.7 D Creat Clearance w eGFR > 60 Random Glucose 90 Calcium 8.3 L Total Bilirubin 0.7 D AST 12 L D ALT 18 D Alkaline Phosphatase 37 L Total Protein 6.1 L Albumin 3.3 L Urine Color [place] Urine Appearance Cloudy Urine pH 5.0 Urine Protein Negative Urine Glucose (UA) Negative Urine Ketones Negative Urine Blood 1+ H Urine Nitrite Negative Urine Bilirubin Negative Urine Urobilinogen Negative Ur Leukocyte Esterase 1+ H Urine RBC <1 Urine WBC 11 Ur Epithelial Cells Rare Urine Mucus Few LABS NOTED. RPR PENDING. 11/25/16 11:32 Assessment: 11/25/16 11:30 WITHDRAWAL SYMPTOMS. Plan: CONTINUE DETOX. PRN ZOFRAN FOR NAUSEA /VOMITING.
[2016-11-25] MEDS: METOPROLOL TARTRATE 50 MG TABLET (FP) PO SCH (12:30)
[2016-11-25] MEDS: FLUTICASONE PROP 0.05% 16 GM NASAL SPRAY NS SCH (12:30)
[2016-11-25] MEDS: ATORVASTATIN CA 40 MG TABLET (FP) PO SCH (22:19)
[2016-11-25] MEDS: THIAMINE HCL 100 MG TABLET (FP) PO SCH (22:19)
[2016-11-26] MEDS: chlordiazePOXIDE HCL 25 MG CAPSULE PO SCH ×3 (05:28→20:02)
[2016-11-26] MEDS: IBUPROFEN 400 MG TABLET (FP) PO PRN (05:30)
[2016-11-26] MEDS: ASPIRIN 81 MG CHEWABLE TABLETS PO SCH (10:29)
[2016-11-26] MEDS: NICOTINE 21 MG/24 HOURS TOPICAL PATCH TD SCH (10:29)
[2016-11-26] MEDS: METOPROLOL TARTRATE 50 MG TABLET (FP) PO SCH (10:30)
[2016-11-26] MEDS: LORATADINE 10 MG TABLET PO SCH (10:30)
[2016-11-26] MEDS: LISINOPRIL 5 MG TABLET (FP) PO SCH (10:30)
[2016-11-26] MEDS: PRENATAL VITAMINS W/ FOLIC ACID TABLET (FP) PO SCH (10:30)
[2016-11-26] MEDS: FLUTICASONE PROP 0.05% 16 GM NASAL SPRAY NS SCH (10:34)
--- NOTE | 2016-11-26 16:29 | PN ---
[facility] CIWA - CIWA Score Nausea/Vomitin Muscle Tremors: None Anxiety: 4-Mod. Anxious/Guarded Agitation: 3 Paroxysmal Sweats: No Perspiration Orientation: 2-Disoriented Date<2 days Tacttile Disturbances: 3-Moderate Itch/Numb/Burn Auditory Disturbances: 0-None Visual Disturbances: 0-None Headache: 0-None Present CIWA-Ar Total Score: 15 [facility] Progress Note (SOAP) Subjective: Diarrhea, Nausea, Stomach Cramping, Lower Back Ache, Fatigue. Objective: PT. A & O X 2 (DISORIENTED ABOUT DAY / DATE). PT. OBSERVED AMBULATING ON UNIT. NO ACUTE DISTRESS. 11/26/16 16:27 Vital Signs Temperature 97.4 F L 11/26/16 10:21 Pulse Rate 86 11/26/16 10:21 Respiratory Rate 18 11/26/16 10:21 Blood Pressure 136/97 11/26/16 10:21 O2 Sat by Pulse Oximetry (%) Laboratory Tests 11/25/16 11/25/16 11/25/16 07:00 07:00 07:00 WBC 6.7 D RBC 3.86 L Hgb 13.5 Hct 39.9 MCV 103.4 H MCH 35.0 H MCHC 33.8 RDW 12.7 Plt Count 246 MPV 9.5 Sodium 139 Potassium 3.9 Chloride 106 Carbon Dioxide 24 Anion Gap 9 BUN 9 D Creatinine 0.7 D Creat Clearance w eGFR > 60 Random Glucose 90 Calcium 8.3 L Total Bilirubin 0.7 D AST 12 L D ALT 18 D Alkaline Phosphatase 37 L Total Protein 6.1 L Albumin 3.3 L Urine Color Urine Appearance Urine pH Ur Specific [place] Urine Protein Urine Glucose (UA) Urine Ketones Urine Blood Urine Nitrite Urine Bilirubin Urine Urobilinogen Ur Leukocyte Esterase Urine RBC Urine WBC Ur Epithelial Cells Urine Mucus RPR Titer Nonreactive 11/25/16 07:25 WBC RBC Hgb Hct MCV MCH MCHC RDW Plt Count MPV Sodium Potassium Chloride Carbon Dioxide Anion Gap BUN Creatinine Creat Clearance w eGFR Random Glucose Calcium Total Bilirubin AST ALT Alkaline Phosphatase Total Protein Albumin Urine Color Lore Urine Appearance Cloudy Urine pH 5.0 Ur Specific [place] 1.020 Urine Protein Negative Urine Glucose (UA) Negative Urine Ketones Negative Urine Blood 1+ H Urine Nitrite Negative Urine Bilirubin Negative Urine Urobilinogen Negative Ur Leukocyte Esterase 1+ H Urine RBC <1 Urine WBC 11 Ur Epithelial Cells Rare Urine Mucus Few RPR Titer LABS NOTED. Assessment: 11/26/16 16:28 WITHDRAWAL SYMPTOMS. Plan: CONTINUE DETOX. REPEAT UA FOR ADMISSION ABNORMAL LEVELS (BLOOD, WBC, LEUKOCYTE ESTERASE.)
[2016-11-26] MEDS: THIAMINE HCL 100 MG TABLET (FP) PO SCH (22:05)
[2016-11-26] MEDS: ATORVASTATIN CA 40 MG TABLET (FP) PO SCH (22:05)
[2016-11-26] MEDS: chlordiazePOXIDE 5 MG CAPSULE PO SCH (22:05)
[2016-11-27] MEDS: chlordiazePOXIDE 5 MG CAPSULE PO SCH ×3 (05:56→17:19)
[2016-11-27] MEDS: ASPIRIN 81 MG CHEWABLE TABLETS PO SCH (10:12)
[2016-11-27] MEDS: PRENATAL VITAMINS W/ FOLIC ACID TABLET (FP) PO SCH (10:12)
[2016-11-27] MEDS: LISINOPRIL 5 MG TABLET (FP) PO SCH (10:12)
[2016-11-27] MEDS: NICOTINE 21 MG/24 HOURS TOPICAL PATCH TD SCH (10:13)
[2016-11-27] MEDS: LORATADINE 10 MG TABLET PO SCH (10:13)
[2016-11-27] MEDS: METOPROLOL TARTRATE 50 MG TABLET (FP) PO SCH (10:13)
[2016-11-27] MEDS: FLUTICASONE PROP 0.05% 16 GM NASAL SPRAY NS SCH (10:16)
[2016-11-27] MEDS: NICOTINE POLACRILEX 2 MG GUM BUC PRN (10:18)
[2016-11-27] MEDS: IBUPROFEN 400 MG TABLET (FP) PO PRN (10:31)
--- NOTE | 2016-11-27 15:13 | PN ---
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 Patient placed tissue in left ear to collect drainage. He was given 2x2 gauze pads by singer songwriter to use instead of tissue as tissue can break off and clogged his ear canal. Patient accompanied by staff and singer songwriter to [facility] to have ears examined. Objective: 11/27/16 15:11 Last Vital Signs Temp Pulse Resp BP Pulse Ox 97.0 F L 62 18 116/82 11/27/16 13:48 11/27/16 13:48 11/27/16 13:48 11/27/16 13:48 PE: Right ear normal with mild erythema inner canal, moderate amount of soft cerumen; left ear with moderate erythema, perforated TM with scant amount of brownish malodorous drainage Laboratory Tests 11/25/16 11/25/16 11/25/16 07:00 07:00 07:00 WBC 6.7 D RBC 3.86 L Hgb 13.5 Hct 39.9 MCV 103.4 H MCH 35.0 H MCHC 33.8 RDW 12.7 Plt Count 246 MPV 9.5 Sodium 139 Potassium 3.9 Chloride 106 Carbon Dioxide 24 Anion Gap 9 BUN 9 D Creatinine 0.7 D Creat Clearance w eGFR > 60 Random Glucose 90 Calcium 8.3 L Total Bilirubin 0.7 D AST 12 L D ALT 18 D Alkaline Phosphatase 37 L Total Protein 6.1 L Albumin 3.3 L Urine Color Urine Appearance Urine pH Ur Specific [place] Urine Protein Urine Glucose (UA) Urine Ketones Urine Blood Urine Nitrite Urine Bilirubin Urine Urobilinogen Ur Leukocyte Esterase Urine RBC Urine WBC Ur Epithelial Cells Urine Mucus RPR Titer Nonreactive 11/25/16 07:25 WBC RBC Hgb Hct MCV MCH MCHC RDW Plt Count MPV Sodium Potassium Chloride Carbon Dioxide Anion Gap BUN Creatinine Creat Clearance w eGFR Random Glucose Calcium Total Bilirubin AST ALT Alkaline Phosphatase Total Protein Albumin Urine Color Lore Urine Appearance Cloudy Urine pH 5.0 Ur Specific [place] 1.020 Urine Protein Negative Urine Glucose (UA) Negative Urine Ketones Negative Urine Blood 1+ H Urine Nitrite Negative Urine Bilirubin Negative Urine Urobilinogen Negative Ur Leukocyte Esterase 1+ H Urine RBC <1 Urine WBC 11 Ur Epithelial Cells Rare Urine Mucus Few RPR Titer Labs noted: abnormal UA Assessment: 11/27/16 15:13 Withdrawal symptoms Noted with AOM with effusion of left ear Noted with abnormal UA Plan: Continue detox AOM with effusion of left ear: augmentin 875mg PO q12 hr x 14 days, instructed to follow up with PCP post discharge in 1-2 weeks for ENT referral Abnormal UA: repeat UA, send urine culture to rule out UTI, encouraged to drink lots of water
[2016-11-27] MEDS: AMOX TR/POT CLAV 875MG/125MG TABLETS (FP) PO SCH (17:21)
[2016-11-27 19:24] LABS: URINE APPEARANCE SLCLOUDY; URINE BILIRUBIN NEGATIVE (NEGATIVE); URINE BLOOD 1+ (NEGATIVE); URINE COLOR AMBER; URINE GLUCOSE (UA) NEGATIVE (NEGATIVE); URINE KETONE NEGATIVE (NEGATIVE); URINE LEUK ESTERASE NEGATIVE (NEGATIVE); URINE NITRITE NEGATIVE (NEGATIVE); URINE PROTEIN NEGATIVE (NEGATIVE); URINE UROBILINOGEN NEGATIVE mg/dL (0.2-1.0)
[2016-11-27 19:33] LABS: CALCIUM OXALATE CRYSTALS RARE /hpf (NONE SEEN); URINE HYALINE CAST 2 /lpf; URINE MUCUS MANY; URINE RBC 4 /hpf (0-3); URINE WBC 5 /hpf (3-5)
[2016-11-27] MEDS: ATORVASTATIN CA 40 MG TABLET (FP) PO SCH (22:00)
[2016-11-27] MEDS: chlordiazePOXIDE HCL 10 MG CAPSULE PO SCH (22:00)
[2016-11-27] MEDS: THIAMINE HCL 100 MG TABLET (FP) PO SCH (22:00)
[2016-11-28] MEDS: chlordiazePOXIDE HCL 10 MG CAPSULE PO SCH ×2 (06:09→10:22)
[2016-11-28] MEDS: AMOX TR/POT CLAV 875MG/125MG TABLETS (FP) PO SCH (07:42)
[2016-11-28 09:28] VITALS: BP 141/93; PULSE 69; TEMP 95.6
[2016-11-28] MEDS: FLUTICASONE PROP 0.05% 16 GM NASAL SPRAY NS SCH (09:39)
[2016-11-28] MEDS: ASPIRIN 81 MG CHEWABLE TABLETS PO SCH (09:40)
[2016-11-28] MEDS: PRENATAL VITAMINS W/ FOLIC ACID TABLET (FP) PO SCH (09:40)
[2016-11-28] MEDS: LORATADINE 10 MG TABLET PO SCH (09:43)
[2016-11-28] MEDS: NICOTINE 21 MG/24 HOURS TOPICAL PATCH TD SCH (09:48)
[2016-11-28] MEDS: LISINOPRIL 5 MG TABLET (FP) PO SCH (09:49)
[2016-11-28] MEDS: METOPROLOL TARTRATE 50 MG TABLET (FP) PO SCH (09:49)
[2016-11-28] MEDS: NICOTINE POLACRILEX 2 MG GUM BUC PRN (09:50)
--- NOTE | 2016-11-28 12:41 | DS ---
[facility] Detox Discharge Summary Admission Date: 11/24/16 Discharge Date: 11/28/16 - History Present History: Alcohol Dependence, Cannabis Dependence Pertinent Past History: HTN Hyperlipidemia - Physical Exam Results Vital Signs: Vital Signs Temperature 95.6 F L 11/28/16 09:27 Pulse Rate 69 11/28/16 09:27 Respiratory Rate 18 11/28/16 09:27 Blood Pressure 141/93 11/28/16 09:27 O2 Sat by Pulse Oximetry (%) Pertinent Admission Physical Exam Findings: Withdrawal sx. Laboratory Last Values WBC 6.7 K/mm3 (4.0-10.0) D 11/25/16 07:00 RBC 3.86 M/mm3 (4.00-5.60) L 11/25/16 07:00 Hgb 13.5 GM/dL (11.7-16.9) 11/25/16 07:00 Hct 39.9 % (35.4-49) 11/25/16 07:00 MCV 103.4 fl (80-96) H 11/25/16 07:00 MCH 35.0 pg (25.7-33.7) H 11/25/16 07:00 MCHC 33.8 g/dl (32.0-35.9) 11/25/16 07:00 RDW 12.7 % (11.9-15.9) 11/25/16 07:00 Plt Count 246 K/MM3 (134-434) 11/25/16 07:00 MPV 9.5 fl (7.5-11.1) 11/25/16 07:00 Sodium 139 mmol/L (136-145) 11/25/16 07:00 Potassium 3.9 mmol/L (3.5-5.1) 11/25/16 07:00 Chloride 106 mmol/L (98-107) 11/25/16 07:00 Carbon Dioxide 24 mmol/L (21-32) 11/25/16 07:00 Anion Gap 9 (8-16) 11/25/16 07:00 BUN 9 mg/dL (7-18) D 11/25/16 07:00 Creatinine 0.7 mg/dL (0.7-1.3) D 11/25/16 07:00 Creat Clearance w eGFR > 60 (>60) 11/25/16 07:00 Random Glucose 90 mg/dL (74-106) 11/25/16 07:00 Calcium 8.3 mg/dL (8.5-10.1) L 11/25/16 07:00 Total Bilirubin 0.7 mg/dL (0.2-1.0) D 11/25/16 07:00 AST 12 U/L (15-37) L D 11/25/16 07:00 ALT 18 U/L (12-78) D 11/25/16 07:00 Alkaline Phosphatase 37 U/L (45-117) L 11/25/16 07:00 Total Protein 6.1 g/dl (6.4-8.2) L 11/25/16 07:00 Albumin 3.3 g/dl (3.4-5.0) L 11/25/16 07:00 Urine Color [place] 11/27/16 19:16 Urine Appearance Slcloudy 11/27/16 19:16 Urine pH 5.0 (5.0-8.0) 11/27/16 19:16 Ur Specific [place] 1.025 (1.005-1.025) 11/27/16 19:16 Urine Protein Negative (NEGATIVE) 11/27/16 19:16 Urine Glucose (UA) Negative (NEGATIVE) 11/27/16 19:16 Urine Ketones Negative (NEGATIVE) 11/27/16 19:16 Urine Blood 1+ (NEGATIVE) H 11/27/16 19:16 Urine Nitrite Negative (NEGATIVE) 11/27/16 19:16 Urine Bilirubin Negative (NEGATIVE) 11/27/16 19:16 Urine Urobilinogen Negative mg/dL (0.2-1.0) 11/27/16 19:16 Ur Leukocyte Esterase Negative (NEGATIVE) 11/27/16 19:16 Urine RBC 4 /hpf (0-3) 11/27/16 19:16 Urine WBC 5 /hpf (3-5) 11/27/16 19:16 Ur Epithelial Cells Rare /hpf (FEW) 11/27/16 19:16 Calcium Oxalate Crystal Rare /hpf (NONE SEEN) 11/27/16 19:16 Hyaline Casts 2 /lpf 11/27/16 19:16 Urine Mucus Many 11/27/16 19:16 RPR Titer Nonreactive (NONREACTIVE) 11/25/16 07:00 labs noted - Treatment Hospital Course: Detox Protocol Followed, Detoxed Safely, Responded well, Discharged Condition Good, Rehab Referral Accepted Patient has Accepted a Rehab Referral to: [facility] OTP - Medication Discharge Medications: Ambulatory Orders Aspirin [ASA -] 81 mg PO DAILY 08/16/16 Atorvastatin Ca [Lipitor] 40 mg PO HS 08/16/16 Fluticasone Propionate [Allergy Relief] 1 spray NS DAILY 08/16/16 Lisinopril [Zestril] 2.5 mg PO DAILY 08/16/16 Loratadine [Claritin -] 10 mg PO DAILY 08/16/16 Metoprolol Tartrate [Lopressor] 100 mg PO DAILY 08/16/16 Amox-Tr/K Cl [Augmentin 875-125mg Tablet -] 1 tab PO BID@0800,1730 #10 tablet - Diagnosis (1) Alcohol dependence with uncomplicated withdrawal Status: Chronic (2) Cannabis dependence Status: Chronic (3) Cocaine dependence Status: Chronic Qualifiers: Substance use status: uncomplicated Qualified Code(s): F14.20 - Cocaine dependence, uncomplicated (4) Hyperlipidemia Status: Chronic Qualifiers: Hyperlipidemia type: pure hypercholesterolemia Qualified Code(s): E78.00 - Pure hypercholesterolemia, unspecified; E78.0 - Pure hypercholesterolemia (5) Hypertension Status: Chronic Qualifiers: Hypertension type: essential hypertension Qualified Code(s): I10 - Essential (primary) hypertension (6) Otitis externa Status: Acute Qualifiers: Otitis externa type: other infective Chronicity: acute Laterality: left Qualified Code(s): H60.392 - Other infective otitis externa, left ear - AMA Did Patient Leave Against Medical Advice: No
== END 2016-11-28 10:23 | disposition home or self-care (01) | DRG 774 ==
LOC: YASAS 10:51 → Y3N 15:49
PROVIDERS: ADMIT Internal Medicine; ATTEND Internal Medicine
PROC: HZ2ZZZZ Detoxification Services for Substance Abuse Treatment (ICD-10-PCS; principal; 2016-11-24)
DX: F10.230 Alcohol dependence with withdrawal, uncomplicated (principal); F14.20 Cocaine dependence, uncomplicated; F12.20 Cannabis dependence, uncomplicated; F17.210 Nicotine dependence, cigarettes, uncomplicated; E78.5 Hyperlipidemia, unspecified; I10 Essential (primary) hypertension; I25.2 Old myocardial infarction; H60.392 Other infective otitis externa, left ear; Z79.82 Long term (current) use of aspirin; R76.11 Nonspecific reaction to tuberculin skin test without active tuberculosis; Z91.011 Allergy to milk products
CPT/HCPCS: 36415; 80053; 81003; 81015; 85027; 86593; 87086; 93005; 93010

== ENCOUNTER 2017-04-15 09:14 | Inpatient (IN) | payer OTHER ==
[2017-04-15 09:52] VITALS: BMI 22.1
--- NOTE | 2017-04-15 09:59 | HP ---
CIWA Score - CIWA Score Nausea/Vomitin-Mild Nausea/No Vomiting Muscle Tremors: 4-Moderate,w/Arms Extend Anxiety: 4-Mod. Anxious/Guarded Agitation: 1-Slight > Activity Paroxysmal Sweats: 1-Minimal Palms Moist Orientation: 1-Uncertain about Date Tacttile Disturbances: 1-Very Mild Itch/Numbness Auditory Disturbances: 1-Very Mild Visual Disturbances: 1-Very Mild Sensitivity Headache: 1-Very Mild CIWA-Ar Total Score: 16 Admission ROS BHS - HPI Chief Complaint: I need help, to get off alcohol, I need to keep my apartment, get back to my job Allergies/Adverse Reactions: Allergies Allergy/AdvReac Type Severity Reaction Status Date / Time lactose Allergy Severe Verified 11/24/16 14:31 No Known Drug Allergies Allergy Verified 11/24/16 14:31 History of Present Illness: 51 yo gentleman here for detox from alcohol, also using crack/cocaine and marijuana. Last time here October 2016. No seizures but does have black outs. Interested in vivitrol injection upon discharge. Exam Limitations: Clinical Condition - Ebola screening Have you traveled outside of the country in the last 21 days: No Have you had contact with anyone from an Ebola affected area: No Have you been sick,other than usual withdrawal symptoms: No Do you have a fever: No - Review of Systems Constitutional: Chills, Loss of Appetite, Night Sweats EENT: reports: Blurred Vision, Nose Congestion Respiratory: reports: No Symptoms reported Cardiac: reports: Chest Tightness GI: reports: Nausea, Poor Appetite : reports: Frequency Musculoskeletal: reports: Back Pain Integumentary: reports: No Symptoms Reported Neuro: reports: Headache, Tremors Endocrine: reports: No Symptoms Reported Hematology: reports: No Symptoms Reported Psychiatric: reports: Judgement Intact, Mood/Affect Appropiate Other Systems: Reviewed and Negative Patient History - Patient Medical History Hx Anemia: No Hx Asthma: No Hx Chronic Obstructive Pulmonary Disease (COPD): No Hx Cancer: No Hx Cardiac Disorders: Yes (2014) Hx Congestive Heart Failure: No Hx Hypertension: Yes Hx Hypercholesterolemia: Yes (ON MED) Hx Pacemaker: No HX Cerebrovascular Accident: No Hx Seizures: No Hx Dementia: No Hx Diabetes: No Hx Gastrointestinal Disorders: No Hx Liver Disease: No Hx Genitourinary Disorders: No Hx Sexually Transmitted Disorders: No Hx Renal Disease (ESRD): No Hx Thyroid Disease: No Hx Human Immunodeficiency Virus (HIV): No Hx Hepatitis C: No Hx Depression: No Hx Suicide Attempt: No Hx Bipolar Disorder: No Hx Schizophrenia: No Other Medical History: back pain; PPD+ treated - Patient Surgical History Past Surgical History: No Hx Neurologic Surgery: No Hx Cataract Extraction: No Hx Cardiac Surgery: No Hx Lung Surgery: No Hx Breast Surgery: No Hx Breast Biopsy: No Hx Abdominal Surgery: Yes (BILATERAL INGUINAL HERNIA ) Hx Appendectomy: No Hx Cholecystectomy: No Hx Genitourinary Surgery: No Hx Section: No Hx Orthopedic Surgery: No Anesthesia Reaction: No - PPD History Previous Implant?: Yes Documented Results: Positive w/o proof Date: 07/31/95 (treated) PPD to be Administered?: No - Reproductive History Patient is a Female of Child Bearing Age (11 -55 yrs old): No (male) - Smoking Cessation Smoking history: Current every day smoker Have you smoked in the past 12 months: Yes Aproximately how many cigarettes per day: 10 Hx Chewing Tobacco Use: No Initiated information on smoking cessation: Yes 'Breaking Loose' booklet given: 04/15/17 (give on floor) - Substance & Tx. History Hx Alcohol Use: Yes Hx Substance Use: Yes Substance Use Type: Alcohol, Cocaine, Marijuana Hx Substance Use Treatment: Yes (detox) - Substances Abused Alcohol Route: Oral Frequency: Daily Amount used: five six packs of 32 oz beer; 2 pints liquor Age of first use: 38 Date of Last Use: 04/15/17 Crack Route: Smoking Frequency: Daily Amount used: $600 Age of first use: 16 Date of Last Use: 04/15/17 Marijuana/Hashish Route: Smoking Frequency: Daily Amount used: 20 'sacks' Age of first use: 12 Date of Last Use: 04/15/17 Family Disease History - Family Disease History Family Disease History: Diabetes: Brother (two - living- one with dm, younger in recovery), [place]: Father (, etoh), Other: Father, Mother (, lupus, etoh, drugs), Brother Admission Physical Exam BHS - Vital Signs Vital Signs: Vital Signs - 24 hr 04/15/17 09:44 Temperature 97.4 F L Pulse Rate 72 Respiratory 20 Rate Blood Pressure 104/64 - Physical General Appearance: Yes: Appropriately Dressed, Moderate Distress, Thin, Anxious HEENTM: Yes: Hearing grossly Normal, Normocephalic, Normal Voice, Pharynx Normal Respiratory: Yes: Normal Breath Sounds, No Respiratory Distress Neck: Yes: No masses,lesions,Nodules, Supple Breast: Yes: Breast Exam Deferred Cardiology: Yes: Regular Rhythm, Regular Rate Abdominal: Yes: Non Tender, Flat, Soft Genitourinary: Yes: Frequency Back: Yes: Normal Inspection Musculoskeletal: Yes: full range of Motion, Gait Steady Extremities: Yes: Normal Inspection, Normal Range of Motion, Non-Tender 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: Yes: Alert, Normal Mood/Affect, Normal Response Integumentary: Yes: Normal Color, Dry, Warm Lymphatic: Yes: Within Normal Limits - Diagnostic (1) Alcohol dependence with uncomplicated withdrawal Current Visit: Yes Status: Chronic (2) Old [place] (myocardial infarction) Current Visit: Yes Status: Acute (3) Cocaine dependence Current Visit: No Status: Chronic Qualifiers: Substance use status: uncomplicated Qualified Code(s): F14.20 - Cocaine dependence, uncomplicated (4) Cannabis dependence Current Visit: Yes Status: Chronic (5) PPD positive Current Visit: Yes Status: Acute (6) Hyperlipidemia Current Visit: Yes Status: Chronic Qualifiers: Hyperlipidemia type: pure hypercholesterolemia Qualified Code(s): E78.00 - Pure hypercholesterolemia, unspecified (7) Hypertension Current Visit: Yes Status: Chronic Qualifiers: Hypertension type: essential hypertension Qualified Code(s): I10 - Essential (primary) hypertension (8) Low back pain Current Visit: Yes Status: Chronic Qualifiers: Chronicity: chronic Back pain laterality: midline Sciatica presence: without sciatica Qualified Code(s): M54.5 - Low back pain; G89.29 - Other chronic pain; G89.29 - Other chronic pain (9) Nicotine dependence Current Visit: Yes Status: Acute Qualifiers: Nicotine product type: cigarettes Substance use status: uncomplicated Qualified Code(s): F17.210 - Nicotine dependence, cigarettes, uncomplicated Cleared for Admission BHS - Detox or Rehab [facility] Level of Care: Medically Managed Detox Regimen/Protocol: Librium [facility] Breath Alcohol Content Breath Alcohol Content: 0 Urine Drug Screen - Results Drug Screen Negative: No Urine Drug Screen Results: THC-Marijuana, DEEPIKA-Cocaine
[2017-04-15] MEDS ORDERED: MENTHOL/PHENOL 1 EACH UD MM PRN (10:11)
[2017-04-15] MEDS ORDERED: MAGNESIUM HYDROX 2400MG/30ML ORAL SUSPENSION 30 ML CUP PO PRN (10:11)
[2017-04-15] MEDS ORDERED: LOPERAMIDE HCL 2 MG CAPSULE PO PRN (10:11)
[2017-04-15] MEDS ORDERED: guaiFENesin/D-METHORPHAN HB 10 ML UNIT-DOSE CUPS PO PRN (10:11)
[2017-04-15] MEDS ORDERED: chlordiazePOXIDE HCL 25 MG CAPSULE PO PRN (10:11)
[2017-04-15] MEDS ORDERED: P-EPHED 60MG/TRIPROLIDI 2.5MG TABLET PO PRN (10:11)
[2017-04-15] MEDS ORDERED: hydrOXYzine PAMOATE 50 MG CAPSULE (FP) PO PRN (10:11)
[2017-04-15] MEDS ORDERED: MAGNESIUM CITRATE 300 ML BOTTLE PO PRN (10:11)
[2017-04-15] MEDS ORDERED: chlordiazePOXIDE HCL 25 MG CAPSULE PO ONE (11:15)
[2017-04-15] MEDS: METOPROLOL SUCCINATE 100 MG TAB.SR.24H (FP) PO SCH (13:33)
[2017-04-15] MEDS: NICOTINE 21 MG/24 HOURS TOPICAL PATCH TD SCH (13:33)
[2017-04-15 15:24] LABS: URINE APPEARANCE SLCLOUDY; URINE BILIRUBIN NEGATIVE (NEGATIVE); URINE BLOOD NEGATIVE (NEGATIVE); URINE COLOR AMBER; URINE GLUCOSE (UA) NEGATIVE (NEGATIVE); URINE KETONE TRACE (NEGATIVE); URINE LEUK ESTERASE NEGATIVE (NEGATIVE); URINE NITRITE NEGATIVE (NEGATIVE); URINE UROBILINOGEN 4.0 E.U/dl mg/dL (0.2-1.0)
[2017-04-15 15:26] LABS: URINE PROTEIN 1+ (NEGATIVE)
[2017-04-15 15:46] LABS: URINE HYALINE CAST 10 /lpf; URINE MUCUS RARE; URINE RBC 3 /hpf (0-3); URINE WBC 5 /hpf (3-5)
--- NOTE | 2017-04-15 17:02 | CONSULT ---
[facility] Psychiatric Consult - Data Date of interview: 04/15/17 Admission source: [facility] Identifying data: Readmission to [facility] for this 51 y/o AA male seeking detox treatment on for alcohol,marihuana and cocaine (crack) dependence.Patient is without childeren,domiciled and currently employed. Substance Abuse History: Confirmed by patient in this session.See current [facility] report for details : Smoking history: Current every day smoker. Have you smoked in the past 12 months: Yes. Aproximately how many cigarettes per day: 10. Hx Chewing Tobacco Use: No. Initiated information on smoking cessation: Yes. 'Breaking Loose' booklet given: 04/15/17 (give on floor). - Substance & Tx. History. Hx Alcohol Use: Yes. Hx Substance Use: Yes. Substance Use Type: Alcohol, Cocaine, Marijuana. Hx Substance Use Treatment: Yes (detox). - Substances Abused. Alcohol. Route: Oral. Frequency: Daily. Amount used: five six packs of 32 oz beer; 2 pints liquor. Age of first use: 38. Date of Last Use: 04/15/17. Crack. Route: Smoking. Frequency: Daily. Amount used : $600. Age of first use: 16. Date of Last Use: 04/15/17. Marijuana/ Hashish. Route: Smoking. Frequency: Daily. Amount used: 20 'sacks'. Age of first use: 12. Date of Last Use: 04/15/17 Medical History: Hypertension,dyslipidemia,antecedent of myocardial infarction ( 2015),lower back pain and a history of bilateral herniorraphy. Psychiatric History: Patient denies. Physical/Sexual Abuse/Trauma History: Patient denies. Additional Comment: Urine Drug Screen Results: THC-Marijuana, DEEPIKA-Cocaine.Noted. Mental Status Exam - Mental Status Exam Alert and Oriented to: Time, Place, Person Cognitive Function: Good Patient Appearance: Well Groomed Mood: Hopeful, Euthymic Affect: Appropriate, Normal Range Patient Behavior: Fatigued, Appropriate, Cooperative Speech Pattern: Clear, Appropriate Voice Loudness: Normal Thought Process: Intact, Goal Oriented Thought Disorder: Not Present Hallucinations: Denies Suicidal Ideation: Denies Homicidal Ideation: Denies Insight/Judgement: Poor Sleep: Fair Appetite: Good Muscle strength/Tone: Normal Gait/Station: Normal Psychiatric Findings - Problem List ([place] 1, 2,3) (1) Alcohol dependence with uncomplicated withdrawal Current Visit: Yes Status: Acute (2) Cannabis dependence Current Visit: Yes Status: Acute (3) Cocaine dependence Current Visit: Yes Status: Chronic Qualifiers: Substance use status: uncomplicated Qualified Code(s): F14.20 - Cocaine dependence, uncomplicated (4) Nicotine dependence Current Visit: Yes Status: Acute Qualifiers: Nicotine product type: cigarettes Substance use status: uncomplicated Qualified Code(s): F17.210 - Nicotine dependence, cigarettes, uncomplicated - Initial Treatment Plan Initial Treatment Plan: Psychoeducation.Detoxification.Observation.
[2017-04-15] MEDS: chlordiazePOXIDE HCL 25 MG CAPSULE PO SCH ×2 (18:54→22:21)
[2017-04-15 19:22] LABS: URINE LEUK ESTERASE Negative (NEGATIVE)
[2017-04-15] MEDS: THIAMINE HCL 100 MG TABLET (FP) PO SCH (22:21)
[2017-04-15] MEDS: ATORVASTATIN CA 40 MG TABLET (FP) PO SCH (22:22)
[2017-04-15] MEDS: ACETAMINOPHEN 325 MG TABLET (FP) PO PRN (22:23)
[2017-04-16] MEDS: chlordiazePOXIDE HCL 25 MG CAPSULE PO SCH ×4 (05:22→22:24)
[2017-04-16] MEDS ORDERED: LISINOPRIL 5 MG TABLET (FP) PO SCH (10:00)
[2017-04-16] MEDS: ASPIRIN 81 MG CHEWABLE TABLETS PO SCH (10:18)
[2017-04-16] MEDS: PRENATAL VITAMINS W/ FOLIC ACID TABLET (FP) PO SCH (10:18)
[2017-04-16] MEDS: METOPROLOL SUCCINATE 100 MG TAB.SR.24H (FP) PO SCH (10:18)
[2017-04-16] MEDS: NICOTINE POLACRILEX 4 MG GUM BUC PRN (10:19)
[2017-04-16] MEDS: NICOTINE 21 MG/24 HOURS TOPICAL PATCH TD SCH (10:19)
[2017-04-16] MEDS: ACETAMINOPHEN 325 MG TABLET (FP) PO PRN (10:20)
[2017-04-16 10:43] LABS: ALBUMIN 3.8 g/dl (3.4-5.0); ANION GAP 9 (8-16); CALCIUM 8.3 mg/dL (8.5-10.1); CO2 25 mmol/L (21-32); GLUCOSE,RANDOM 153 mg/dL (74-106)
[2017-04-16 10:47] LABS: ALK PHOS 51 U/L (45-117); BILIRUBIN,TOTAL 0.8 mg/dL (0.2-1.0); CREATININE 1.3 mg/dL (0.7-1.3); SGOT/AST 22 U/L (15-37); SGPT/ALT 23 U/L (12-78); TOT PROT 6.9 g/dl (6.4-8.2)
[2017-04-16 11:27] LABS: MCH 34.3 pg (25.7-33.7); MCHC 33.2 g/dl (32.0-35.9); MEAN CELL VOLUME 103.4 fl (80-96); MEAN PLT VOLUME 9.7 fl (7.5-11.1); PLATELET COUNT 247 K/MM3 (134-434); RDW 13.3 % (11.9-15.9); WHITE BLOOD COUNT 6.6 K/mm3 (4.0-10.0)
[2017-04-16] MEDS: LEVOFLOXACIN 500 MG TABLET (FP) PO SCH (13:09)
[2017-04-16] MEDS: MAG HYDROX/AL HYDROX/SIMETH 30 ML UNIT-DOSE CUP PO PRN (13:09)
--- NOTE | 2017-04-16 13:43 | PN ---
[facility] CIWA - CIWA Score Nausea/Vomitin-No Nausea/No Vomiting Muscle Tremors: 4-Moderate,w/Arms Extend Anxiety: 4-Mod. Anxious/Guarded Agitation: 4-Moderately Restless Paroxysmal Sweats: 3 Orientation: 0-Oriented Tacttile Disturbances: 1-Very Mild Itch/Numbness Auditory Disturbances: 0-None Visual Disturbances: 0-None Headache: 0-None Present CIWA-Ar Total Score: 16 [facility] Progress Note (SOAP) Subjective: Tremor, chills, back pain (right lower) pain scale 7/10 constant since , interrupted sleep, agitation Objective: 04/16/17 13:37 Last Vital Signs Temp Pulse Resp BP Pulse Ox 96.6 F L 65 18 132/82 04/16/17 13:24 04/16/17 13:24 04/16/17 13:24 04/16/17 13:24 PE: Resp: lungs ctab/l, no adventitious breath sounds CV: rrr, s1s2+, apical rate 80 bpm, no m/g/r Back: right CVA tenderness on palpation Skin: warm to touch, moist, turgor good Laboratory Tests 04/15/17 04/16/17 04/16/17 15:13 06:10 06:10 WBC 6.6 RBC 3.71 L Hgb 12.7 Hct 38.4 MCV 103.4 H MCH 34.3 H MCHC 33.2 RDW 13.3 Plt Count 247 MPV 9.7 Sodium 140 Potassium 4.1 Chloride 106 Carbon Dioxide 25 Anion Gap 9 BUN 18 D Creatinine 1.3 D Creat Clearance w eGFR 57.75 Random Glucose 153 H D Calcium 8.3 L Total Bilirubin 0.8 AST 22 D ALT 23 D Alkaline Phosphatase 51 D Total Protein 6.9 Albumin 3.8 Urine Color [place] Urine Appearance Slcloudy Urine pH 5.[address] [place] 1.028 Urine Protein 1+ H Urine Glucose (UA) Negative Urine Ketones Trace H Urine Blood Negative Urine Nitrite Negative Urine Bilirubin Negative Urine Urobilinogen 4.0 e.u/dl Ur Leukocyte Esterase Negative Urine WBC (Auto) 5 Urine RBC (Auto) 3 Ur Epithelial Cells Rare Hyaline Casts 10 Urine Mucus Rare RPR Titer 04/16/17 06:10 WBC RBC Hgb Hct MCV MCH MCHC RDW Plt Count MPV Sodium Potassium Chloride Carbon Dioxide Anion Gap BUN Creatinine Creat Clearance w eGFR Random Glucose Calcium Total Bilirubin AST ALT Alkaline Phosphatase Total Protein Albumin Urine Color Urine Appearance Urine pH Ur Specific [place] Urine Protein Urine Glucose (UA) Urine Ketones Urine Blood Urine Nitrite Urine Bilirubin Urine Urobilinogen Ur Leukocyte Esterase Urine WBC (Auto) Urine RBC (Auto) Ur Epithelial Cells Hyaline Casts Urine Mucus RPR Titer Nonreactive Labs noted: bun 18, serum creatinine 1.3, GFR 57.75, serum glucose 153, UA: 1+ protein/abnormal Assessment: 04/16/17 13:38 Withdrawal symptoms Noted with HUEY vs prerenal azotemia, hyperglycemia and abnormal UA Plan: Continue detox Acute right pyelonephritis: encouraged to drink lots of water, start levaquin 500mg PO daily x 7 days, follow up with PCP within 1-2 weeks post discharge HUEY vs prerenal azotemia: encouraged to drink lots of water, d/c lisinopril and start norvasc 2.5mg PO daily instead due to decreased renal function, repeat bmp Hyperglycemia: start finger stick glucose ac meal, start insulin lispro sliding scale with coverage, change ensure to glucerna, repeat fasting glucose, send HbA1c, start oral antidiabetic medication if warranted Abnormal UA:encouraged to drink lots of water, repeat UA
[2017-04-16] MEDS: INSULIN SLIDING SCALE (NOVOLOG) 1 VIAL SQ SCH (16:54)
[2017-04-16 20:11] LABS: URINE APPEARANCE SLCLOUDY; URINE BILIRUBIN NEGATIVE (NEGATIVE); URINE BLOOD NEGATIVE (NEGATIVE); URINE COLOR YELLOW; URINE GLUCOSE (UA) 1+ (NEGATIVE); URINE KETONE NEGATIVE (NEGATIVE); URINE LEUK ESTERASE TRACE (NEGATIVE); URINE NITRITE NEGATIVE (NEGATIVE); URINE PROTEIN NEGATIVE (NEGATIVE); URINE UROBILINOGEN 4.0 E.U/dl mg/dL (0.2-1.0)
[2017-04-16 20:16] LABS: URINE MUCUS RARE; URINE RBC 8 /hpf (0-3); URINE WBC 40 /hpf (3-5)
[2017-04-16] MEDS: THIAMINE HCL 100 MG TABLET (FP) PO SCH (22:24)
[2017-04-16] MEDS: ATORVASTATIN CA 40 MG TABLET (FP) PO SCH (22:24)
[2017-04-17] MEDS: LEVOFLOXACIN 500 MG TABLET (FP) PO SCH (06:07)
[2017-04-17] MEDS: chlordiazePOXIDE HCL 25 MG CAPSULE PO SCH ×2 (06:07→10:26)
[2017-04-17] MEDS: INSULIN SLIDING SCALE (NOVOLOG) 1 VIAL SQ SCH ×3 (06:19→16:45)
[2017-04-17] MEDS: ACETAMINOPHEN 325 MG TABLET (FP) PO PRN ×2 (06:50→22:08)
[2017-04-17 10:16] LABS: ANION GAP 7 (8-16); CALCIUM 8.3 mg/dL (8.5-10.1); CO2 26 mmol/L (21-32); CREATININE 0.7 mg/dL (0.7-1.3); GLUCOSE,RANDOM 91 mg/dL (74-106)
[2017-04-17] MEDS: ASPIRIN 81 MG CHEWABLE TABLETS PO SCH (10:26)
[2017-04-17] MEDS: PRENATAL VITAMINS W/ FOLIC ACID TABLET (FP) PO SCH (10:26)
[2017-04-17] MEDS: NICOTINE 21 MG/24 HOURS TOPICAL PATCH TD SCH (10:27)
[2017-04-17] MEDS: NICOTINE POLACRILEX 4 MG GUM BUC PRN ×2 (10:27→12:31)
[2017-04-17] MEDS: METOPROLOL SUCCINATE 100 MG TAB.SR.24H (FP) PO SCH (10:27)
[2017-04-17] MEDS: amLODIPine BESYLATE 2.5 MG TABLET (FP) PO SCH (10:27)
--- NOTE | 2017-04-17 12:26 | PN ---
[facility] CIWA - CIWA Score Nausea/Vomitin-No Nausea/No Vomiting Muscle Tremors: 4-Moderate,w/Arms Extend Anxiety: 4-Mod. Anxious/Guarded Agitation: 4-Moderately Restless Paroxysmal Sweats: 1-Minimal Palms Moist Orientation: 0-Oriented Tacttile Disturbances: 3-Moderate Itch/Numb/Burn Auditory Disturbances: 0-None Visual Disturbances: 0-None Headache: 0-None Present CIWA-Ar Total Score: 16 S Progress Note (SOAP) Subjective: ANXIETY, TREMORS, IRRITABILITY,INTERMITTENT SLEEP. Objective: 04/17/17 12:24 Vital Signs Temperature 97.2 F L 04/17/17 09:18 Pulse Rate 65 04/17/17 09:18 Respiratory Rate 18 04/17/17 09:18 Blood Pressure 129/88 04/17/17 09:18 O2 Sat by Pulse Oximetry (%) Laboratory Last Values WBC 6.6 K/mm3 (4.0-10.0) 04/16/17 06:10 RBC 3.71 M/mm3 (4.00-5.60) L 04/16/17 06:10 Hgb 12.7 GM/dL (11.7-16.9) 04/16/17 06:10 Hct 38.4 % (35.4-49) 04/16/17 06:10 MCV 103.4 fl (80-96) H 04/16/17 06:10 MCH 34.3 pg (25.7-33.7) H 04/16/17 06:10 MCHC 33.2 g/dl (32.0-35.9) 04/16/17 06:10 RDW 13.3 % (11.9-15.9) 04/16/17 06:10 Plt Count 247 K/MM3 (134-434) 04/16/17 06:10 MPV 9.7 fl (7.5-11.1) 04/16/17 06:10 Sodium 141 mmol/L (136-145) 04/17/17 07:00 Potassium 3.8 mmol/L (3.5-5.1) 04/17/17 07:00 Chloride 108 mmol/L (98-107) H 04/17/17 07:00 Carbon Dioxide 26 mmol/L (21-32) 04/17/17 07:00 Anion Gap 7 (8-16) L 04/17/17 07:00 BUN 12 mg/dL (7-18) D 04/17/17 07:00 Creatinine 0.7 mg/dL (0.7-1.3) D 04/17/17 07:00 Creat Clearance w eGFR 57.75 (>60) 04/16/17 06:10 POC Glucometer 106 UNITS (80-120) 04/16/17 16:37 Random Glucose 91 mg/dL (74-106) D 04/17/17 07:00 Hemoglobin A1c % 4.5 % (4.8-6.0) L 04/17/17 07:00 Calcium 8.3 mg/dL (8.5-10.1) L 04/17/17 07:00 Total Bilirubin 0.8 mg/dL (0.2-1.0) 04/16/17 06:10 AST 22 U/L (15-37) D 04/16/17 06:10 ALT 23 U/L (12-78) D 04/16/17 06:10 Alkaline Phosphatase 51 U/L (45-117) D 04/16/17 06:10 Total Protein 6.9 g/dl (6.4-8.2) 04/16/17 06:10 Albumin 3.8 g/dl (3.4-5.0) 04/16/17 06:10 Urine Color Yellow 04/16/17 14:54 Urine Appearance Slcloudy 04/16/17 14:54 Urine pH 7.0 (5.0-8.0) D 04/16/17 14:54 Ur Specific [place] 1.028 (1.001-1.035) 04/16/17 14:54 Urine Protein Negative (NEGATIVE) 04/16/17 14:54 Urine Glucose (UA) 1+ (NEGATIVE) H 04/16/17 14:54 Urine Ketones Negative (NEGATIVE) 04/16/17 14:54 Urine Blood Negative (NEGATIVE) 04/16/17 14:54 Urine Nitrite Negative (NEGATIVE) 04/16/17 14:54 Urine Bilirubin Negative (NEGATIVE) 04/16/17 14:54 Urine Urobilinogen 4.0 e.u/dl mg/dL (0.2-1.0) 04/16/17 14:54 Ur Leukocyte Esterase Negative (NEGATIVE) 04/15/17 15:13 Urine WBC (Auto) 40 /hpf (3-5) 04/16/17 14:54 Urine RBC (Auto) 8 /hpf (0-3) 04/16/17 14:54 Ur Epithelial Cells Rare /HPF (FEW) 04/16/17 14:54 Hyaline Casts 10 /lpf 04/15/17 15:13 Urine Mucus Rare 04/16/17 14:54 RPR Titer Nonreactive (NONREACTIVE) 04/16/17 06:10 ABNORMAL UA Assessment: 04/17/17 12:24 WITHDRAWAL SX Plan: CONTINUE DETOX INCREASE PO FLUIDS ON LEVAQUIN
[2017-04-17] MEDS: chlordiazePOXIDE 5 MG CAPSULE PO SCH ×2 (17:08→22:06)
[2017-04-17 17:29] LABS: URINE LEUK ESTERASE Negative (NEGATIVE)
[2017-04-17] MEDS: THIAMINE HCL 100 MG TABLET (FP) PO SCH (22:06)
[2017-04-17] MEDS: ATORVASTATIN CA 40 MG TABLET (FP) PO SCH (22:06)
--- NOTE | 2017-04-18 01:57 | EKG ---
Test Reason : Blood Pressure : / mmHG Vent. Rate : 070 BPM Atrial Rate : 070 BPM P-R Int : 180 ms QRS Dur : 108 ms QT Int : 424 ms P-R-T Axes : 073 090 075 degrees QTc Int : 457 ms NORMAL SINUS RHYTHM RIGHTWARD AXIS BORDERLINE ECG WHEN COMPARED WITH ECG OF 24-NOV-2016 17:55, T WAVE VARIATION Confirmed by BARBER RUBIO MD ([id number] on 04/18/2017 1:56:51 AM Referred By: Confirmed By:BARBER RUBIO MD
[2017-04-18] MEDS: LEVOFLOXACIN 500 MG TABLET (FP) PO SCH (05:39)
[2017-04-18] MEDS: chlordiazePOXIDE 5 MG CAPSULE PO SCH ×2 (05:39→10:17)
[2017-04-18] MEDS: ACETAMINOPHEN 325 MG TABLET (FP) PO PRN (05:41)
[2017-04-18] MEDS: INSULIN SLIDING SCALE (NOVOLOG) 1 VIAL SQ SCH ×2 (06:37→10:39)
[2017-04-18] MEDS: METOPROLOL SUCCINATE 100 MG TAB.SR.24H (FP) PO SCH (10:16)
[2017-04-18] MEDS: amLODIPine BESYLATE 2.5 MG TABLET (FP) PO SCH (10:17)
[2017-04-18] MEDS: ASPIRIN 81 MG CHEWABLE TABLETS PO SCH (10:17)
[2017-04-18] MEDS: NICOTINE 21 MG/24 HOURS TOPICAL PATCH TD SCH (10:17)
[2017-04-18] MEDS: PRENATAL VITAMINS W/ FOLIC ACID TABLET (FP) PO SCH (10:17)
[2017-04-18] MEDS: NICOTINE POLACRILEX 4 MG GUM BUC PRN ×2 (10:18→21:02)
--- NOTE | 2017-04-18 11:49 | PN ---
[facility] Progress Note (SOAP) Subjective: DECREASED ANXIETY,SWEATS,FATIGUE. Objective: 04/18/17 11:50 Vital Signs Temperature 95.5 F L 04/18/17 09:05 Pulse Rate 79 04/18/17 09:05 Respiratory Rate 16 04/18/17 09:05 Blood Pressure 130/85 04/18/17 09:05 O2 Sat by Pulse Oximetry (%) Laboratory Last Values WBC 6.6 K/mm3 (4.0-10.0) 04/16/17 06:10 RBC 3.71 M/mm3 (4.00-5.60) L 04/16/17 06:10 Hgb 12.7 GM/dL (11.7-16.9) 04/16/17 06:10 Hct 38.4 % (35.4-49) 04/16/17 06:10 MCV 103.4 fl (80-96) H 04/16/17 06:10 MCH 34.3 pg (25.7-33.7) H 04/16/17 06:10 MCHC 33.2 g/dl (32.0-35.9) 04/16/17 06:10 RDW 13.3 % (11.9-15.9) 04/16/17 06:10 Plt Count 247 K/MM3 (134-434) 04/16/17 06:10 MPV 9.7 fl (7.5-11.1) 04/16/17 06:10 Sodium 141 mmol/L (136-145) 04/17/17 07:00 Potassium 3.8 mmol/L (3.5-5.1) 04/17/17 07:00 Chloride 108 mmol/L (98-107) H 04/17/17 07:00 Carbon Dioxide 26 mmol/L (21-32) 04/17/17 07:00 Anion Gap 7 (8-16) L 04/17/17 07:00 BUN 12 mg/dL (7-18) D 04/17/17 07:00 Creatinine 0.7 mg/dL (0.7-1.3) D 04/17/17 07:00 Creat Clearance w eGFR 57.75 (>60) 04/16/17 06:10 POC Glucometer 119 UNITS (80-120) 04/17/17 16:23 Random Glucose 91 mg/dL (74-106) D 04/17/17 07:00 Hemoglobin A1c % 4.5 % (4.8-6.0) L 04/17/17 07:00 Calcium 8.3 mg/dL (8.5-10.1) L 04/17/17 07:00 Total Bilirubin 0.8 mg/dL (0.2-1.0) 04/16/17 06:10 AST 22 U/L (15-37) D 04/16/17 06:10 ALT 23 U/L (12-78) D 04/16/17 06:10 Alkaline Phosphatase 51 U/L (45-117) D 04/16/17 06:10 Total Protein 6.9 g/dl (6.4-8.2) 04/16/17 06:10 Albumin 3.8 g/dl (3.4-5.0) 04/16/17 06:10 Urine Color Yellow 04/16/17 14:54 Urine Appearance Slcloudy 04/16/17 14:54 Urine pH 7.0 (5.0-8.0) D 04/16/17 14:54 Ur Specific [place] 1.028 (1.001-1.035) 04/16/17 14:54 Urine Protein Negative (NEGATIVE) 04/16/17 14:54 Urine Glucose (UA) 1+ (NEGATIVE) H 04/16/17 14:54 Urine Ketones Negative (NEGATIVE) 04/16/17 14:54 Urine Blood Negative (NEGATIVE) 04/16/17 14:54 Urine Nitrite Negative (NEGATIVE) 04/16/17 14:54 Urine Bilirubin Negative (NEGATIVE) 04/16/17 14:54 Urine Urobilinogen 4.0 e.u/dl mg/dL (0.2-1.0) 04/16/17 14:54 Ur Leukocyte Esterase Negative (NEGATIVE) 04/16/17 14:54 Urine WBC (Auto) 40 /hpf (3-5) 04/16/17 14:54 Urine RBC (Auto) 8 /hpf (0-3) 04/16/17 14:54 Ur Epithelial Cells Rare /HPF (FEW) 04/16/17 14:54 Hyaline Casts 10 /lpf 04/15/17 15:13 Urine Mucus Rare 04/16/17 14:54 RPR Titer Nonreactive (NONREACTIVE) 04/16/17 06:10 Assessment: 04/18/17 11:50 WITHDRAWAL SX Plan: CONTINUE DETOX
[2017-04-18] MEDS: MAG HYDROX/AL HYDROX/SIMETH 30 ML UNIT-DOSE CUP PO PRN (15:07)
[2017-04-18] MEDS: chlordiazePOXIDE HCL 10 MG CAPSULE PO SCH ×2 (17:24→22:00)
[2017-04-18] MEDS: THIAMINE HCL 100 MG TABLET (FP) PO SCH (22:00)
[2017-04-18] MEDS: ATORVASTATIN CA 40 MG TABLET (FP) PO SCH (22:00)
[2017-04-19] MEDS: LEVOFLOXACIN 500 MG TABLET (FP) PO SCH (05:39)
[2017-04-19] MEDS: chlordiazePOXIDE HCL 10 MG CAPSULE PO SCH (05:39)
[2017-04-19 05:57] VITALS: BP 137/81; PULSE 62; TEMP 97.3
[2017-04-19] MEDS: NICOTINE POLACRILEX 4 MG GUM BUC PRN (06:11)
--- NOTE | 2017-04-19 11:33 | DS ---
[facility] Detox Discharge Summary Admission Date: 04/15/17 Discharge Date: 04/19/17 - History Present History: Alcohol Dependence Additional Comments: DETOX COMPLETED. PREVIOUSLY TALKED WITH PT THE NEED TO FOLLOW UP WITH PCP FOR MEDICAL CONDITION MANAGEMENT NEEDED. Pertinent Past History: HTN HYPERLIPIDEMIA S/P NH - Physical Exam Results Vital Signs: Vital Signs Temperature 97.3 F L 04/19/17 05:56 Pulse Rate 62 04/19/17 05:56 Respiratory Rate 18 04/19/17 05:56 Blood Pressure 137/81 04/19/17 05:56 O2 Sat by Pulse Oximetry (%) Pertinent Admission Physical Exam Findings: WITHDRAWAL SX Laboratory Last Values WBC 6.6 K/mm3 (4.0-10.0) 04/16/17 06:10 RBC 3.71 M/mm3 (4.00-5.60) L 04/16/17 06:10 Hgb 12.7 GM/dL (11.7-16.9) 04/16/17 06:10 Hct 38.4 % (35.4-49) 04/16/17 06:10 MCV 103.4 fl (80-96) H 04/16/17 06:10 MCH 34.3 pg (25.7-33.7) H 04/16/17 06:10 MCHC 33.2 g/dl (32.0-35.9) 04/16/17 06:10 RDW 13.3 % (11.9-15.9) 04/16/17 06:10 Plt Count 247 K/MM3 (134-434) 04/16/17 06:10 MPV 9.7 fl (7.5-11.1) 04/16/17 06:10 Sodium 141 mmol/L (136-145) 04/17/17 07:00 Potassium 3.8 mmol/L (3.5-5.1) 04/17/17 07:00 Chloride 108 mmol/L (98-107) H 04/17/17 07:00 Carbon Dioxide 26 mmol/L (21-32) 04/17/17 07:00 Anion Gap 7 (8-16) L 04/17/17 07:00 BUN 12 mg/dL (7-18) D 04/17/17 07:00 Creatinine 0.7 mg/dL (0.7-1.3) D 04/17/17 07:00 Creat Clearance w eGFR 57.75 (>60) 04/16/17 06:10 POC Glucometer 138 UNITS (80-120) 04/19/17 05:41 Random Glucose 91 mg/dL (74-106) D 04/17/17 07:00 Hemoglobin A1c % 4.5 % (4.8-6.0) L 04/17/17 07:00 Calcium 8.3 mg/dL (8.5-10.1) L 04/17/17 07:00 Total Bilirubin 0.8 mg/dL (0.2-1.0) 04/16/17 06:10 AST 22 U/L (15-37) D 04/16/17 06:10 ALT 23 U/L (12-78) D 04/16/17 06:10 Alkaline Phosphatase 51 U/L (45-117) D 04/16/17 06:10 Total Protein 6.9 g/dl (6.4-8.2) 04/16/17 06:10 Albumin 3.8 g/dl (3.4-5.0) 04/16/17 06:10 Urine Color Yellow 04/16/17 14:54 Urine Appearance Slcloudy 04/16/17 14:54 Urine pH 7.0 (5.0-8.0) D 04/16/17 14:54 Ur Specific [place] 1.028 (1.001-1.035) 04/16/17 14:54 Urine Protein Negative (NEGATIVE) 04/16/17 14:54 Urine Glucose (UA) 1+ (NEGATIVE) H 04/16/17 14:54 Urine Ketones Negative (NEGATIVE) 04/16/17 14:54 Urine Blood Negative (NEGATIVE) 04/16/17 14:54 Urine Nitrite Negative (NEGATIVE) 04/16/17 14:54 Urine Bilirubin Negative (NEGATIVE) 04/16/17 14:54 Urine Urobilinogen 4.0 e.u/dl mg/dL (0.2-1.0) 04/16/17 14:54 Ur Leukocyte Esterase Negative (NEGATIVE) 04/16/17 14:54 Urine WBC (Auto) 40 /hpf (3-5) 04/16/17 14:54 Urine RBC (Auto) 8 /hpf (0-3) 04/16/17 14:54 Ur Epithelial Cells Rare /HPF (FEW) 04/16/17 14:54 Hyaline Casts 10 /lpf 04/15/17 15:13 Urine Mucus Rare 04/16/17 14:54 RPR Titer Nonreactive (NONREACTIVE) 04/16/17 06:10 RX FOR LEVAQUIN X 10 7 MORE DAYS SENT TO PT'S PHARMACY AND INSTRUCTED TO [facility] [employer] ON DISCHARGE. - Treatment Hospital Course: Detox Protocol Followed, Detoxed Safely, Responded well, Discharged Condition Good - Medication Discharge Medications: Ambulatory Orders Aspirin [ASA -] 81 mg PO DAILY 08/16/16 Atorvastatin Ca [Lipitor] 40 mg PO HS 08/16/16 Fluticasone Propionate [Allergy Relief] 1 spray NS DAILY 08/16/16 Lisinopril [Zestril] 2.5 mg PO DAILY 08/16/16 Loratadine [Claritin -] 10 mg PO DAILY 08/16/16 Metoprolol Tartrate [Lopressor] 100 mg PO DAILY 08/16/16 Levofloxacin [Levaquin -] 500 mg PO DAILY@0600 #7 tablet 04/18/17 - Diagnosis (1) Alcohol dependence with uncomplicated withdrawal Status: Acute (2) Cocaine dependence Status: Chronic Qualifiers: Substance use status: uncomplicated Qualified Code(s): F14.20 - Cocaine dependence, uncomplicated (3) Hyperlipidemia Status: Chronic Qualifiers: Hyperlipidemia type: pure hypercholesterolemia Qualified Code(s): E78.00 - Pure hypercholesterolemia, unspecified (4) Hypertension Status: Chronic Qualifiers: Hypertension type: essential hypertension Qualified Code(s): I10 - Essential (primary) hypertension (5) Low back pain Status: Chronic Qualifiers: Chronicity: chronic Back pain laterality: midline Sciatica presence: without sciatica Qualified Code(s): M54.5 - Low back pain; G89.29 - Other chronic pain; G89.29 - Other chronic pain (6) Nicotine dependence Status: Acute Qualifiers: Nicotine product type: cigarettes Substance use status: in withdrawal Qualified Code(s): F17.213 - Nicotine dependence, cigarettes, with withdrawal (7) Old NH (myocardial infarction) Status: Chronic (8) UTI (urinary tract infection) Status: Acute - AMA Did Patient Leave Against Medical Advice: No
== END 2017-04-19 06:35 | disposition home or self-care (01) | DRG 774 ==
LOC: YASAS 09:14 → Y3N 11:09
PROVIDERS: ADMIT Internal Medicine; ATTEND Internal Medicine
PROC: HZ2ZZZZ Detoxification Services for Substance Abuse Treatment (ICD-10-PCS; principal; 2017-04-15)
DX: F10.230 Alcohol dependence with withdrawal, uncomplicated (principal); F14.20 Cocaine dependence, uncomplicated; F12.20 Cannabis dependence, uncomplicated; F17.213 Nicotine dependence, cigarettes, with withdrawal; E78.5 Hyperlipidemia, unspecified; I25.2 Old myocardial infarction; I10 Essential (primary) hypertension; M54.5 Low back pain; G89.29 Other chronic pain; R73.9 Hyperglycemia, unspecified; R80.9 Proteinuria, unspecified; N39.0 Urinary tract infection, site not specified; N10 Acute pyelonephritis; R76.11 Nonspecific reaction to tuberculin skin test without active tuberculosis; N17.9 Acute kidney failure, unspecified; Z91.011 Allergy to milk products
CPT/HCPCS: 36415; 80048; 80053; 81003; 81015; 83036; 85027; 86593; 93005; 93010

== ENCOUNTER 2018-04-30 12:42 | Inpatient (IN) | payer OTHER ==
[2018-04-30 13:00] VITALS: BMI 23.0
--- NOTE | 2018-04-30 14:16 | HP ---
CIWA Score Nausea/Vomitin Muscle Tremors: 2 Anxiety: 4-Mod. Anxious/Guarded Agitation: 3 Paroxysmal Sweats: No Perspiration Orientation: 1-Uncertain about Date Tacttile Disturbances: 2-Mild Itch/Numbness/Burn Auditory Disturbances: 0-None Visual Disturbances: 0-None Headache: 0-None Present CIWA-Ar Total Score: 14 - Admission Criteria [facility] Guidelines: Admission for Medically Managed Detox: Requires at least one of the followin. CIWA greater than 12 2. Seizures within the past 24 hours 3. Delirium tremens within the past 24 hours 4. Hallucinations within the past 24 hours 5. Acute intervention needed for co occurring medical disorder 6. Acute intervention needed for co occurring psychiatric disorder 7. Severe withdrawal that cannot be handled at a lower level of care (continued vomiting, continued diarrhea, abnormal vital signs) requiring intravenous medication and/or fluids 8. Admission ROS [facility] Chief Complaint: ETOH WITHDRAWAL SX AND COCAINE/MARIJUANA DEPENDENCE. Allergies/Adverse Reactions: Allergies Allergy/AdvReac Type Severity Reaction Status Date / Time lactose Allergy Severe Hives Verified 04/30/18 13:23 No Known Drug Allergies Allergy Verified 04/30/18 13:23 History of Present Illness: PATIENT [facility]. PATIENT STARTED DRINKING AT AGE 43, DRINKS 18 BEERS DAILY, LAST DRINK THIS MORNING. ALSO + COCAINE/MARIJUANA USE. PATIENT DENIES H/O SEIZURES, BLACKOUTS AND FALLS. 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 PATIENT STATES HAVING TWO FRONT TEETH PULLED THIS MORNING AT [facility], NO ABX PROVIDED. PMH INCLUDES HTN, TOBACCO USE, ALLERGIES, [place] 2015, HLD AND DEPRESSION. DENIES SI/HI AND SUICIDE ATTEMPTS. Exam Limitations: No Limitations - Ebola screening Have you traveled outside of the country in the last 21 days: No Have you had contact with anyone from an Ebola affected area: No Have you been sick,other than usual withdrawal symptoms: No Do you have a fever: No - Review of Systems Constitutional: Night Sweats, Changes in sleep, Unexplained wgt Loss EENT: reports: Other (TWO FRONT TEETH PULLED TODAY) Respiratory: reports: No Symptoms reported Cardiac: reports: No Symptoms Reported GI: reports: Diarrhea, Nausea, Poor Fluid Intake, Abdominal cramping : reports: No Symptoms Reported Musculoskeletal: reports: No Symptoms Reported Integumentary: reports: Sweating Neuro: reports: Tremors Endocrine: reports: Unexplained Weight Loss Hematology: reports: No Symptoms Reported Psychiatric: reports: Orientated x3, Anxious, Depressed Patient History - Patient Medical History Hx Anemia: No Hx Asthma: No Hx Chronic Obstructive Pulmonary Disease (COPD): No Hx Cancer: No Hx Cardiac Disorders: No Hx Congestive Heart Failure: No Hx Hypertension: Yes Hx Hypercholesterolemia: Yes (ON MED -On atorvastatin ) Hx Pacemaker: No HX Cerebrovascular Accident: No Hx Seizures: No Hx Dementia: No Hx Diabetes: No Hx Gastrointestinal Disorders: No Hx Liver Disease: No Hx Genitourinary Disorders: No Hx Sexually Transmitted Disorders: No Hx Renal Disease (ESRD): No Hx Thyroid Disease: No Hx Human Immunodeficiency Virus (HIV): No (last tested 90 days ago ) Hx Hepatitis C: No Hx Depression: No Hx Suicide Attempt: No Hx Bipolar Disorder: No Hx Schizophrenia: No - Patient Surgical History Past Surgical History: No Hx Neurologic Surgery: No Hx Cataract Extraction: No Hx Cardiac Surgery: No Hx Lung Surgery: No Hx Breast Surgery: No Hx Breast Biopsy: No Hx Abdominal Surgery: Yes (BILATERAL INGUINAL HERNIA ) Hx Appendectomy: No Hx Cholecystectomy: No Hx Genitourinary Surgery: No Hx Orthopedic Surgery: No Other Surgical History: Bilateral inguinal hernia repair 01/14 Anesthesia Reaction: No - PPD History Previous Implant?: Yes Documented Results: Positive w/proof Implanted On Prior [facility] Admission?: No Date: 07/31/95 Results: cxr neg PPD to be Administered?: No - Smoking Cessation Smoking history: Current every day smoker Have you smoked in the past 12 months: Yes Aproximately how many cigarettes per day: 10 Hx Chewing Tobacco Use: No Initiated information on smoking cessation: Yes 'Breaking Loose' booklet given: 04/30/18 - Substance & Tx. History Hx Alcohol Use: Yes Hx Substance Use: Yes Substance Use Type: Alcohol, Cocaine, Marijuana Hx Substance Use Treatment: Yes - Substances Abused Alcohol Route: Oral Frequency: Daily Amount used: 2 6PKS BEER Age of first use: 43 Date of Last Use: 04/30/18 Crack Route: Smoking Frequency: Daily Amount used: $100 Age of first use: 23 Date of Last Use: 04/29/18 Marijuana/Hashish Route: Smoking Frequency: Daily Amount used: $100 Age of first use: 12 Date of Last Use: 04/30/18 Family Disease History - Family Disease History Family Disease History: Diabetes: Brother (two - living- one with dm, younger in recovery), [place]: Father (, etoh), Other: Father, Mother (, lupus, etoh, drugs), Brother Admission Physical Exam [facility] - Vital Signs Vital Signs: Vital Signs - 24 hr 04/30/18 12:58 Temperature 96.5 F L Pulse Rate 80 Respiratory 18 Rate Blood Pressure 115/61 - Physical General Appearance: Yes: Appropriately Dressed, Tremorous, Sweating, Anxious HEENTM: Yes: EOMI, Hearing grossly Normal, Normocephalic, Normal Voice, REBECCA, Pharynx Normal, Other (S/P FRONT TWO TEETH PULLED) Respiratory: Yes: Chest Non-Tender, Lungs Clear, Normal Breath Sounds, No Respiratory Distress, No Accessory Muscle Use Neck: Yes: No masses,lesions,Nodules, Supple, Trachea in good position Breast: Yes: Breast Exam Deferred Cardiology: Yes: Regular Rhythm, Regular Rate, S1, S2 Abdominal: Yes: Normal Bowel Sounds, Non Tender, Soft Genitourinary: Yes: Within Normal Limits Back: Yes: Normal Inspection Musculoskeletal: Yes: full range of Motion, Gait Steady Extremities: Yes: Normal Inspection, Normal Range of Motion, Non-Tender, Tremors 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: Yes: director targeted marketing II-XII NML intact, Fully Oriented, Alert, Motor Strength 5/5, Normal Response, Depressed Affect Integumentary: Yes: Normal Color, Warm, Moist Cleared for Admission [facility] - Detox or Rehab [facility] Level of Care: Medically Managed Detox Regimen/Protocol: Librium [facility] Breath Alcohol Content Breath Alcohol Content: 0.153 Urine Drug Screen - Results Drug Screen Negative: No Urine Drug Screen Results: THC-Marijuana, DEEPIKA-Cocaine
[2018-04-30] MEDS ORDERED: hydrOXYzine PAMOATE 50 MG CAPSULE (FP) PO PRN (14:38)
[2018-04-30] MEDS ORDERED: P-EPHED 60MG/TRIPROLIDI 2.5MG TABLET PO PRN (14:38)
[2018-04-30] MEDS ORDERED: guaiFENesin/D-METHORPHAN HB 10 ML UNIT-DOSE CUPS PO PRN (14:38)
[2018-04-30] MEDS ORDERED: MAGNESIUM HYDROX 2400MG/30ML ORAL SUSPENSION 30 ML CUP PO PRN (14:38)
[2018-04-30] MEDS ORDERED: MAGNESIUM CITRATE 300 ML BOTTLE PO PRN (14:38)
[2018-04-30] MEDS ORDERED: MAG HYDROX/AL HYDROX/SIMETH 30 ML UNIT-DOSE CUP PO PRN (14:38)
[2018-04-30] MEDS ORDERED: MENTHOL/PHENOL 1 EACH UD MM PRN (14:38)
[2018-04-30] MEDS ORDERED: LOPERAMIDE HCL 2 MG CAPSULE PO PRN (14:38)
[2018-04-30] MEDS ORDERED: ACETAMINOPHEN 325 MG TABLET (FP) PO PRN (14:38)
[2018-04-30] MEDS ORDERED: chlordiazePOXIDE HCL 25 MG CAPSULE PO PRN (14:48)
[2018-04-30] MEDS: chlordiazePOXIDE HCL 25 MG CAPSULE PO SCH ×2 (16:33→22:11)
[2018-04-30] MEDS: IBUPROFEN 400 MG TABLET (FP) PO PRN ×2 (16:35→22:15)
--- NOTE | 2018-04-30 16:35 | EKG ---
Test Reason : Blood Pressure : / mmHG Vent. Rate : 072 BPM Atrial Rate : 072 BPM P-R Int : 184 ms QRS Dur : 116 ms QT Int : 376 ms P-R-T Axes : 072 090 020 degrees QTc Int : 411 ms NORMAL SINUS RHYTHM RIGHTWARD AXIS BORDERLINE ECG WHEN COMPARED WITH ECG OF 10-DEC-2017 17:37, VENT. RATE HAS INCREASED BY 25 BPM T WAVE VARIATION Confirmed by RAMIRO JHAVERI, BARBER ([id number]) on 04/30/2018 4:35:18 PM Referred By: Confirmed By:BARBER RUBIO MD
[2018-04-30] MEDS: NICOTINE POLACRILEX 2 MG GUM BUC PRN (16:36)
[2018-04-30] MEDS ORDERED: MELATONIN 5 MG TABLETS PO PRN (22:00)
[2018-04-30] MEDS: THIAMINE HCL 100 MG TABLET (FP) PO SCH (22:11)
[2018-04-30] MEDS: METOPROLOL TARTRATE 50 MG TABLET (FP) PO SCH (22:11)
[2018-04-30] MEDS: AMOXICILLIN 500 MG CAPSULE (FP) PO SCH (22:11)
[2018-04-30] MEDS: ATORVASTATIN CA 40 MG TABLET (FP) PO SCH (22:11)
[2018-05-01] MEDS: chlordiazePOXIDE HCL 25 MG CAPSULE PO SCH ×4 (05:13→22:23)
[2018-05-01] MEDS: AMOXICILLIN 500 MG CAPSULE (FP) PO SCH ×3 (05:13→22:23)
[2018-05-01] MEDS: METOPROLOL TARTRATE 50 MG TABLET (FP) PO SCH ×2 (10:17→22:23)
[2018-05-01] MEDS: NICOTINE 21 MG/24 HOURS TOPICAL PATCH TD SCH (10:17)
[2018-05-01] MEDS: LISINOPRIL 5 MG TABLET (FP) PO SCH (10:17)
[2018-05-01] MEDS: ASPIRIN 81 MG CHEWABLE TABLETS PO SCH (10:17)
[2018-05-01] MEDS: CLOPIDOGREL BISULFATE 75 MG TABLET (FP) PO SCH (10:17)
[2018-05-01] MEDS: PRENATAL VITAMINS W/ FOLIC ACID TABLET (FP) PO SCH (10:17)
[2018-05-01] MEDS: FLUTICASONE PROP 0.05% 16 GM NASAL SPRAY NS SCH (10:21)
[2018-05-01 11:17] LABS: HEMATOCRIT 38.1 % (35.4-49); HEMOGLOBIN 12.6 GM/dL (11.7-16.9); MCH 34.3 pg (25.7-33.7); MEAN PLT VOLUME 9.3 fl (7.5-11.1); PLATELET COUNT 207 K/MM3 (134-434); RBC 3.66 M/mm3 (4.00-5.60); RDW 12.9 % (11.9-15.9)
[2018-05-01 11:25] LABS: ALBUMIN 3.2 g/dl (3.4-5.0); ALK PHOS 38 U/L (45-117); ANION GAP 6 MMOL/L (8-16); BILIRUBIN,TOTAL 0.7 mg/dL (0.2-1); BLOOD UREA NITROGEN 17 mg/dL (7-18); CALCIUM 8.1 mg/dL (8.5-10.1); CHLORIDE 106 mmol/L (98-107); CO2 26 mmol/L (21-32); CREATININE 0.7 mg/dL (0.55-1.3); GLUCOSE,RANDOM 93 mg/dL (74-106); POTASSIUM 4.1 mmol/L (3.5-5.1); SGOT/AST 13 U/L (15-37); SGPT/ALT 17 U/L (13-61); SODIUM 138 mmol/L (136-145); TOT PROT 6.2 g/dl (6.4-8.2)
--- NOTE | 2018-05-01 15:21 | PN ---
S CIWA - CIWA Score Nausea/Vomitin-No Nausea/No Vomiting Muscle Tremors: 2 Anxiety: 4-Mod. Anxious/Guarded Agitation: 1-Slight > Activity Paroxysmal Sweats: 3 Orientation: 0-Oriented Tacttile Disturbances: 2-Mild Itch/Numbness/Burn Auditory Disturbances: 0-None Visual Disturbances: 1-Very Mild Sensitivity Headache: 0-None Present CIWA-Ar Total Score: 13 [facility] Progress Note (SOAP) Subjective: Sweating, Tremors, Chills. Objective: PATIENT A & O X 3, OBSERVED AMBULATING ON UNIT. IN NO ACUTE DISTRESS. 05/01/18 15:22 Vital Signs Temperature 98.6 F 05/01/18 13:24 Pulse Rate 71 05/01/18 13:24 Respiratory Rate 18 05/01/18 13:24 Blood Pressure 118/82 05/01/18 13:24 O2 Sat by Pulse Oximetry (%) Laboratory Tests 05/01/18 05/01/18 05/01/18 07:30 07:30 07:30 WBC 6.0 RBC 3.66 L Hgb 12.6 Hct 38.1 MCV 104.0 H MCH 34.3 H MCHC 33.0 RDW 12.9 Plt Count 207 MPV 9.3 Sodium 138 Potassium 4.1 Chloride 106 Carbon Dioxide 26 Anion Gap 6 L BUN 17 Creatinine 0.7 Creat Clearance w eGFR > 60 Random Glucose 93 Calcium 8.1 L Total Bilirubin 0.7 AST 13 L ALT 17 Alkaline Phosphatase 38 L Total Protein 6.2 L Albumin 3.2 L RPR Titer Nonreactive LABS NOTED. Assessment: 05/01/18 15:22 WITHDRAWAL SYMPTOMS. Plan: CONTINUE DETOX.
[2018-05-01] MEDS: THIAMINE HCL 100 MG TABLET (FP) PO SCH (22:23)
[2018-05-01] MEDS: ATORVASTATIN CA 40 MG TABLET (FP) PO SCH (22:24)
[2018-05-02] MEDS: chlordiazePOXIDE HCL 25 MG CAPSULE PO SCH ×2 (05:15→10:28)
[2018-05-02] MEDS: AMOXICILLIN 500 MG CAPSULE (FP) PO SCH ×3 (05:16→22:10)
[2018-05-02] MEDS: NICOTINE POLACRILEX 2 MG GUM BUC PRN ×2 (09:32→18:08)
[2018-05-02] MEDS: ASPIRIN 81 MG CHEWABLE TABLETS PO SCH (10:28)
[2018-05-02] MEDS: LISINOPRIL 5 MG TABLET (FP) PO SCH (10:28)
[2018-05-02] MEDS: METOPROLOL TARTRATE 50 MG TABLET (FP) PO SCH ×2 (10:28→22:10)
[2018-05-02] MEDS: FLUTICASONE PROP 0.05% 16 GM NASAL SPRAY NS SCH (10:28)
[2018-05-02] MEDS: PRENATAL VITAMINS W/ FOLIC ACID TABLET (FP) PO SCH (10:28)
[2018-05-02] MEDS: CLOPIDOGREL BISULFATE 75 MG TABLET (FP) PO SCH (10:28)
[2018-05-02] MEDS: NICOTINE 21 MG/24 HOURS TOPICAL PATCH TD SCH (10:29)
--- NOTE | 2018-05-02 10:54 | PN ---
S CIWA - CIWA Score Nausea/Vomitin-No Nausea/No Vomiting Muscle Tremors: 3 Anxiety: 1-Mildly Anxious Agitation: 2 Paroxysmal Sweats: 1-Minimal Palms Moist Orientation: 0-Oriented Tacttile Disturbances: 0-None Auditory Disturbances: 0-None Visual Disturbances: 0-None Headache: 2-Mild CIWA-Ar Total Score: 9 S Progress Note (SOAP) Subjective: tremor sweat trouble sleep at night low energy Objective: 05/02/18 12:10 Vital Signs Temperature 97.4 F L 05/02/18 10:54 Pulse Rate 96 H 05/02/18 10:54 Respiratory Rate 18 05/02/18 10:54 Blood Pressure 126/84 05/02/18 10:54 O2 Sat by Pulse Oximetry (%) Laboratory Last Values WBC 6.0 K/mm3 (4.0-10.0) 05/01/18 07:30 RBC 3.66 M/mm3 (4.00-5.60) L 05/01/18 07:30 Hgb 12.6 GM/dL (11.7-16.9) 05/01/18 07:30 Hct 38.1 % (35.4-49) 05/01/18 07:30 MCV 104.0 fl (80-96) H 05/01/18 07:30 MCH 34.3 pg (25.7-33.7) H 05/01/18 07:30 MCHC 33.0 g/dl (32.0-35.9) 05/01/18 07:30 RDW 12.9 % (11.9-15.9) 05/01/18 07:30 Plt Count 207 K/MM3 (134-434) 05/01/18 07:30 MPV 9.3 fl (7.5-11.1) 05/01/18 07:30 Sodium 138 mmol/L (136-145) 05/01/18 07:30 Potassium 4.1 mmol/L (3.5-5.1) 05/01/18 07:30 Chloride 106 mmol/L (98-107) 05/01/18 07:30 Carbon Dioxide 26 mmol/L (21-32) 05/01/18 07:30 Anion Gap 6 MMOL/L (8-16) L 05/01/18 07:30 BUN 17 mg/dL (7-18) 05/01/18 07:30 Creatinine 0.7 mg/dL (0.55-1.3) 05/01/18 07:30 Creat Clearance w eGFR > 60 (>60) 05/01/18 07:30 Random Glucose 93 mg/dL (74-106) 05/01/18 07:30 Calcium 8.1 mg/dL (8.5-10.1) L 05/01/18 07:30 Total Bilirubin 0.7 mg/dL (0.2-1) 05/01/18 07:30 AST 13 U/L (15-37) L 05/01/18 07:30 ALT 17 U/L (13-61) 05/01/18 07:30 Alkaline Phosphatase 38 U/L (45-117) L 05/01/18 07:30 Total Protein 6.2 g/dl (6.4-8.2) L 05/01/18 07:30 Albumin 3.2 g/dl (3.4-5.0) L 05/01/18 07:30 RPR Titer Nonreactive (NONREACTIVE) 05/01/18 07:30 lab noted Assessment: 05/02/18 12:10 withdrawal sx Plan: continue detox
[2018-05-02] MEDS: chlordiazePOXIDE 5 MG CAPSULE PO SCH ×2 (17:37→22:10)
[2018-05-02] MEDS: THIAMINE HCL 100 MG TABLET (FP) PO SCH (22:10)
[2018-05-02] MEDS: ATORVASTATIN CA 40 MG TABLET (FP) PO SCH (22:13)
[2018-05-03] MEDS ORDERED: COLLOIDAL OATMEAL 1 BAR EACH TP PRN (00:30)
[2018-05-03] MEDS: chlordiazePOXIDE 5 MG CAPSULE PO SCH ×2 (05:20→10:32)
[2018-05-03] MEDS: AMOXICILLIN 500 MG CAPSULE (FP) PO SCH ×3 (05:20→22:21)
--- NOTE | 2018-05-03 09:56 | PN ---
S CIWA - CIWA Score Nausea/Vomitin-No Nausea/No Vomiting Muscle Tremors: 1-None Visible, but [place] Anxiety: 1-Mildly Anxious Agitation: 1-Slight > Activity Paroxysmal Sweats: 1-Minimal Palms Moist Orientation: 0-Oriented Tacttile Disturbances: 0-None Auditory Disturbances: 0-None Visual Disturbances: 0-None Headache: 1-Very Mild CIWA-Ar Total Score: 5 [facility] Progress Note (SOAP) Subjective: feeling better mild headaches and tremor muscle aches social with peers in day room discuss aftercare with staff Objective: 05/03/18 09:57 Vital Signs Temperature 96.7 F L 05/03/18 09:11 Pulse Rate 79 05/03/18 09:11 Respiratory Rate 18 05/03/18 09:11 Blood Pressure 121/76 05/03/18 09:11 O2 Sat by Pulse Oximetry (%) Laboratory Last Values WBC 6.0 K/mm3 (4.0-10.0) 05/01/18 07:30 RBC 3.66 M/mm3 (4.00-5.60) L 05/01/18 07:30 Hgb 12.6 GM/dL (11.7-16.9) 05/01/18 07:30 Hct 38.1 % (35.4-49) 05/01/18 07:30 MCV 104.0 fl (80-96) H 05/01/18 07:30 MCH 34.3 pg (25.7-33.7) H 05/01/18 07:30 MCHC 33.0 g/dl (32.0-35.9) 05/01/18 07:30 RDW 12.9 % (11.9-15.9) 05/01/18 07:30 Plt Count 207 K/MM3 (134-434) 05/01/18 07:30 MPV 9.3 fl (7.5-11.1) 05/01/18 07:30 Sodium 138 mmol/L (136-145) 05/01/18 07:30 Potassium 4.1 mmol/L (3.5-5.1) 05/01/18 07:30 Chloride 106 mmol/L (98-107) 05/01/18 07:30 Carbon Dioxide 26 mmol/L (21-32) 05/01/18 07:30 Anion Gap 6 MMOL/L (8-16) L 05/01/18 07:30 BUN 17 mg/dL (7-18) 05/01/18 07:30 Creatinine 0.7 mg/dL (0.55-1.3) 05/01/18 07:30 Creat Clearance w eGFR > 60 (>60) 05/01/18 07:30 Random Glucose 93 mg/dL (74-106) 05/01/18 07:30 Calcium 8.1 mg/dL (8.5-10.1) L 05/01/18 07:30 Total Bilirubin 0.7 mg/dL (0.2-1) 05/01/18 07:30 AST 13 U/L (15-37) L 05/01/18 07:30 ALT 17 U/L (13-61) 05/01/18 07:30 Alkaline Phosphatase 38 U/L (45-117) L 05/01/18 07:30 Total Protein 6.2 g/dl (6.4-8.2) L 05/01/18 07:30 Albumin 3.2 g/dl (3.4-5.0) L 05/01/18 07:30 RPR Titer Nonreactive (NONREACTIVE) 05/01/18 07:30 lab noted Assessment: 05/03/18 10:09 mild withdrawal sx Plan: continue detox
[2018-05-03] MEDS: PRENATAL VITAMINS W/ FOLIC ACID TABLET (FP) PO SCH (10:31)
[2018-05-03] MEDS: METOPROLOL TARTRATE 50 MG TABLET (FP) PO SCH ×2 (10:32→22:21)
[2018-05-03] MEDS: LISINOPRIL 5 MG TABLET (FP) PO SCH (10:32)
[2018-05-03] MEDS: CLOPIDOGREL BISULFATE 75 MG TABLET (FP) PO SCH (10:32)
[2018-05-03] MEDS: ASPIRIN 81 MG CHEWABLE TABLETS PO SCH (10:32)
[2018-05-03] MEDS: NICOTINE 21 MG/24 HOURS TOPICAL PATCH TD SCH (10:35)
[2018-05-03] MEDS: NICOTINE POLACRILEX 2 MG GUM BUC PRN ×2 (10:36→14:42)
[2018-05-03] MEDS: FLUTICASONE PROP 0.05% 16 GM NASAL SPRAY NS SCH (10:59)
[2018-05-03 17:21] LABS: URINE APPEARANCE SLCLOUDY; URINE BILIRUBIN NEGATIVE (<2.0 mg/dL); URINE COLOR DKYELLOW; URINE GLUCOSE (UA) NEGATIVE (NEGATIVE); URINE KETONE NEGATIVE (NEGATIVE); URINE LEUK ESTERASE NEGATIVE (NEGATIVE); URINE NITRITE NEGATIVE (NEGATIVE); URINE PROTEIN NEGATIVE (NEGATIVE); URINE UROBILINOGEN NEGATIVE mg/dL (0.2-1.0)
[2018-05-03] MEDS: chlordiazePOXIDE HCL 10 MG CAPSULE PO SCH ×2 (17:46→22:21)
[2018-05-03] MEDS: THIAMINE HCL 100 MG TABLET (FP) PO SCH (22:21)
[2018-05-03] MEDS: ATORVASTATIN CA 40 MG TABLET (FP) PO SCH (22:23)
[2018-05-04] MEDS: chlordiazePOXIDE HCL 10 MG CAPSULE PO SCH (05:22)
[2018-05-04] MEDS: AMOXICILLIN 500 MG CAPSULE (FP) PO SCH (05:22)
[2018-05-04 06:31] VITALS: BP 108/71; PULSE 56; TEMP 97.7
--- NOTE | 2018-05-04 08:23 | PN ---
S Progress Note (SOAP) Subjective: alert,no complaint Objective: 05/04/18 08:21 Vital Signs Temperature 97.7 F 05/04/18 06:30 Pulse Rate 56 L 05/04/18 06:30 Respiratory Rate 18 05/04/18 06:30 Blood Pressure 108/71 05/04/18 06:30 O2 Sat by Pulse Oximetry (%) Assessment: 05/04/18 08:22 detox completed,no withdrawal symptom Plan: discharge today,follow up with after care program as arrangement
--- NOTE | 2018-05-04 08:27 | DS ---
[facility] Detox Discharge Summary Admission Date: 04/30/18 Discharge Date: 05/04/18 - History Present History: Alcohol Dependence, Cannabis Dependence, Cocaine Dependence Additional Comments: follow up with after care program as arrangement and pmd for medical problem Pertinent Past History: hypertension hypercholesterolemia - Physical Exam Results Vital Signs: Vital Signs Temperature 97.7 F 05/04/18 06:30 Pulse Rate 56 L 05/04/18 06:30 Respiratory Rate 18 05/04/18 06:30 Blood Pressure 108/71 05/04/18 06:30 O2 Sat by Pulse Oximetry (%) Pertinent Admission Physical Exam Findings: withdrawal symptom Vital Signs Temperature 97.7 F 05/04/18 06:30 Pulse Rate 56 L 05/04/18 06:30 Respiratory Rate 18 05/04/18 06:30 Blood Pressure 108/71 05/04/18 06:30 O2 Sat by Pulse Oximetry (%) Laboratory Last Values WBC 6.0 K/mm3 (4.0-10.0) 05/01/18 07:30 RBC 3.66 M/mm3 (4.00-5.60) L 05/01/18 07:30 Hgb 12.6 GM/dL (11.7-16.9) 05/01/18 07:30 Hct 38.1 % (35.4-49) 05/01/18 07:30 MCV 104.0 fl (80-96) H 05/01/18 07:30 MCH 34.3 pg (25.7-33.7) H 05/01/18 07:30 MCHC 33.0 g/dl (32.0-35.9) 05/01/18 07:30 RDW 12.9 % (11.9-15.9) 05/01/18 07:30 Plt Count 207 K/MM3 (134-434) 05/01/18 07:30 MPV 9.3 fl (7.5-11.1) 05/01/18 07:30 Sodium 138 mmol/L (136-145) 05/01/18 07:30 Potassium 4.1 mmol/L (3.5-5.1) 05/01/18 07:30 Chloride 106 mmol/L (98-107) 05/01/18 07:30 Carbon Dioxide 26 mmol/L (21-32) 05/01/18 07:30 Anion Gap 6 MMOL/L (8-16) L 05/01/18 07:30 BUN 17 mg/dL (7-18) 05/01/18 07:30 Creatinine 0.7 mg/dL (0.55-1.3) 05/01/18 07:30 Creat Clearance w eGFR > 60 (>60) 05/01/18 07:30 Random Glucose 93 mg/dL (74-106) 05/01/18 07:30 Calcium 8.1 mg/dL (8.5-10.1) L 05/01/18 07:30 Total Bilirubin 0.7 mg/dL (0.2-1) 05/01/18 07:30 AST 13 U/L (15-37) L 05/01/18 07:30 ALT 17 U/L (13-61) 05/01/18 07:30 Alkaline Phosphatase 38 U/L (45-117) L 05/01/18 07:30 Total Protein 6.2 g/dl (6.4-8.2) L 05/01/18 07:30 Albumin 3.2 g/dl (3.4-5.0) L 05/01/18 07:30 Urine Color Dkyellow 05/03/18 12:31 Urine Appearance Slcloudy 05/03/18 12:31 Urine pH 6.0 (5.0-8.0) 05/03/18 12:31 Ur Specific [place] 1.025 (1.010-1.035) 05/03/18 12:31 Urine Protein Negative (NEGATIVE) 05/03/18 12:31 Urine Glucose (UA) Negative (NEGATIVE) 05/03/18 12:31 Urine Ketones Negative (NEGATIVE) 05/03/18 12:31 Urine Blood Negative (NEGATIVE) 05/03/18 12:31 Urine Nitrite Negative (NEGATIVE) 05/03/18 12:31 Urine Bilirubin Negative (<2.0 mg/dL) 05/03/18 12:31 Urine Urobilinogen Negative mg/dL (0.2-1.0) 05/03/18 12:31 Ur Leukocyte Esterase Negative (NEGATIVE) 05/03/18 12:31 RPR Titer Nonreactive (NONREACTIVE) 05/01/18 07:30 - Treatment Hospital Course: Detox Protocol Followed, Detoxed Safely, Responded well, Discharged Condition Good - Medication Discharge Medications: Ambulatory Orders Aspirin [ASA -] 81 mg PO DAILY 08/16/16 Fluticasone Propionate [Allergy Relief] 1 spray NS DAILY 08/16/16 Loratadine [Claritin -] 10 mg PO DAILY 08/16/16 Clotrimazole [Jock Itch] 15 gm TP BID 04/30/18 Hydrocortisone 1% Cream [Hytone 1% Cream -] 1 applic TP DAILY 04/30/18 Naproxen 500 mg PO Q12H PRN 04/30/18 Atorvastatin Ca [Lipitor] 40 mg PO HS #1 tablet 05/03/18 Clopidogrel Bisulfate [Plavix -] 75 mg PO DAILY #30 tablet 05/03/18 Lisinopril 5 mg PO DAILY #30 tablet 05/03/18 Metoprolol Tartrate [Lopressor -] 50 mg PO BID #60 tablet 05/03/18 - Diagnosis (1) Alcohol dependence with uncomplicated withdrawal Current Visit: Yes Status: Acute (2) Cocaine dependence Current Visit: Yes Status: Acute Qualifiers: Substance use status: uncomplicated Qualified Code(s): F14.20 - Cocaine dependence, uncomplicated (3) Nicotine dependence Current Visit: Yes Status: Acute Qualifiers: Nicotine product type: cigarettes Substance use status: in withdrawal Qualified Code(s): F17.213 - Nicotine dependence, cigarettes, with withdrawal (4) Weight loss Current Visit: Yes Status: Acute (5) Cannabis dependence Current Visit: Yes Status: Chronic (6) Hyperlipidemia Current Visit: Yes Status: Chronic Qualifiers: Hyperlipidemia type: pure hypercholesterolemia Qualified Code(s): E78.00 - Pure hypercholesterolemia, unspecified (7) Hypertension Current Visit: Yes Status: Chronic Qualifiers: Hypertension type: essential hypertension Qualified Code(s): I10 - Essential (primary) hypertension (8) Old [place] (myocardial infarction) Current Visit: Yes Status: Chronic (9) Low back pain Current Visit: No Status: Chronic Qualifiers: Chronicity: chronic Back pain laterality: midline Sciatica presence: without sciatica Qualified Code(s): M54.5 - Low back pain; G89.29 - Other chronic pain - AMA Did Patient Leave Against Medical Advice: No
== END 2018-05-04 08:19 | disposition home or self-care (01) | DRG 774 ==
LOC: YASAS 12:42 → Y3N 14:25
PROC: HZ2ZZZZ Detoxification Services for Substance Abuse Treatment (ICD-10-PCS; principal; 2018-04-30)
DX: F10.230 Alcohol dependence with withdrawal, uncomplicated (principal); F14.20 Cocaine dependence, uncomplicated; F12.20 Cannabis dependence, uncomplicated; F17.213 Nicotine dependence, cigarettes, with withdrawal; I10 Essential (primary) hypertension; E78.5 Hyperlipidemia, unspecified; I25.2 Old myocardial infarction; M54.5 Low back pain; G89.29 Other chronic pain
CPT/HCPCS: 36415; 80053; 81003; 85027; 86593; 93005; 93010

== ENCOUNTER 2018-06-22 16:10 | Inpatient (IN) | payer OTHER ==
[2018-06-22 18:25] VITALS: BMI 22.1
--- NOTE | 2018-06-22 20:36 | HP ---
CIWA Score Nausea/Vomitin Muscle Tremors: 4-Moderate,w/Arms Extend Anxiety: 3 Agitation: 3 Paroxysmal Sweats: 1-Minimal Palms Moist Orientation: 1-Uncertain about Date Tacttile Disturbances: 0-None Auditory Disturbances: 0-None Visual Disturbances: 0-None Headache: 2-Mild CIWA-Ar Total Score: 17 - Admission Criteria OASAS Guidelines: Admission for Medically Managed Detox: Requires at least one of the followin. CIWA greater than 12 2. Seizures within the past 24 hours 3. Delirium tremens within the past 24 hours 4. Hallucinations within the past 24 hours 5. Acute intervention needed for co occurring medical disorder 6. Acute intervention needed for co occurring psychiatric disorder 7. Severe withdrawal that cannot be handled at a lower level of care (continued vomiting, continued diarrhea, abnormal vital signs) requiring intravenous medication and/or fluids 8. Admission ROS [facility] - [facility] Chief Complaint: Alcohol withdrawal symptoms Allergies/Adverse Reactions: Allergies Allergy/AdvReac Type Severity Reaction Status Date / Time lactose Allergy Severe Hives Verified 04/30/18 13:23 No Known Drug Allergies Allergy Verified 04/30/18 13:23 History of Present Illness: 53 years old male with along history of alcohol dependence is seeking admission to detox. Patient has been to multiple detoxifications and reports 7 months of sobriety. He has medical history of heart attack in 2016, hypertension, hyperlipidemia, PPD Positive, old myocardial infarction ([place]), low back pain and anxiety. He denies suicide attempt and suicidal ideation at this time. Exam Limitations: No Limitations - Ebola screening Have you traveled outside of the country in the last 21 days: No (N) Have you had contact with anyone from an Ebola affected area: No Have you been sick,other than usual withdrawal symptoms: No Do you have a fever: No - Review of Systems Constitutional: Chills, Night Sweats, Changes in sleep EENT: reports: Other (perforated left ear drum) Respiratory: reports: No Symptoms reported Cardiac: reports: No Symptoms Reported GI: reports: Diarrhea (x 3), Nausea, Poor Appetite, Poor Fluid Intake, Abdominal cramping : reports: No Symptoms Reported Musculoskeletal: reports: Back Pain Integumentary: reports: Dryness, Flushing Neuro: reports: Headache, Tremors Endocrine: reports: No Symptoms Reported Hematology: reports: No Symptoms Reported Psychiatric: reports: Mood/Affect Appropiate, Orientated x3, Anxious Other Systems: Reviewed and Negative Patient History - Patient Medical History Hx Anemia: No Hx Asthma: No Hx Chronic Obstructive Pulmonary Disease (COPD): No Hx Cancer: No Hx Cardiac Disorders: No Hx Congestive Heart Failure: No Hx Hypertension: Yes (Metoprolol, Lisinopril, Aspirin) Hx Hypercholesterolemia: Yes (Atorvastatin ) Hx Pacemaker: No HX Cerebrovascular Accident: No Hx Seizures: No Hx Dementia: No Hx Diabetes: No Hx Gastrointestinal Disorders: No Hx Liver Disease: No Hx Genitourinary Disorders: No Hx Sexually Transmitted Disorders: No Hx Renal Disease (ESRD): No Hx Thyroid Disease: No Hx Human Immunodeficiency Virus (HIV): No (Negative 2018) Hx Hepatitis C: No Hx Depression: No Hx Suicide Attempt: No (Denies suicidal ideation at this time) Hx Bipolar Disorder: No Hx Schizophrenia: No - Patient Surgical History Past Surgical History: No Hx Neurologic Surgery: No Hx Cataract Extraction: No Hx Cardiac Surgery: No Hx Lung Surgery: No Hx Breast Surgery: No Hx Breast Biopsy: No Hx Abdominal Surgery: Yes (BILATERAL INGUINAL HERNIA ) Hx Appendectomy: No Hx Cholecystectomy: No Hx Genitourinary Surgery: No Hx Section: No Hx Orthopedic Surgery: No Other Surgical History: Bilateral inguinal hernia repair 01/14 Anesthesia Reaction: No - PPD History Previous Implant?: No (POSITIVE PPD TREATED WITH INH AND B6 FOR 9 MONTHS) Date: 07/31/95 Results: cxr neg - Reproductive History Patient is a Female of Child Bearing Age (11 -55 yrs old): No (MALE) - Smoking Cessation Smoking history: Current every day smoker Have you smoked in the past 12 months: Yes Aproximately how many cigarettes per day: 10 Hx Chewing Tobacco Use: No Initiated information on smoking cessation: Yes 'Breaking Loose' booklet given: 06/22/18 - Substance & Tx. History Hx Alcohol Use: Yes Hx Substance Use: Yes Substance Use Type: Alcohol, Cocaine, Marijuana Hx Substance Use Treatment: Yes ([facility]) - Substances Abused Alcohol Route: Oral Frequency: Daily Amount used: BEER 6 X 6 PACKS Age of first use: 43 Date of Last Use: 06/22/18 Cocaine Route: Smoking Frequency: Daily Amount used: 2 GRAMS Age of first use: 23 Date of Last Use: 06/21/18 Marijuana/Hashish Route: Inhalation Frequency: Daily Amount used: $100 DAILY Age of first use: 12 Date of Last Use: 06/22/18 Family Disease History - Family Disease History Family Disease History: Diabetes: Brother (two - living- one with dm, younger in recovery), [place]: Father (, etoh), Other: Father, Mother (, lupus, etoh, drugs), Brother Admission Physical Exam [facility] - Vital Signs Vital Signs: Vital Signs - 24 hr 06/22/18 18:22 Temperature 98.6 F Pulse Rate 66 Respiratory 18 Rate Blood Pressure 96/49 L - Physical General Appearance: Yes: Moderate Distress, Tremorous, Irritable, Anxious HEENTM: Yes: EOMI, Normal ENT Inspection, Normocephalic, Normal Voice, REBECCA Respiratory: Yes: Normal Breath Sounds, No Respiratory Distress Neck: Yes: Supple Breast: Yes: Breast Exam Deferred Cardiology: Yes: Regular Rhythm, Regular Rate Abdominal: Yes: Normal Bowel Sounds Genitourinary: Yes: Within Normal Limits Back: Yes: Normal Inspection Musculoskeletal: Yes: Back pain, Muscle Pain Extremities: Yes: Tremors 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 NML intact, Alert, Normal Mood/Affect Integumentary: Yes: Warm Lymphatic: Yes: Within Normal Limits - Diagnostic (1) Alcohol dependence with uncomplicated withdrawal Current Visit: No Status: Chronic (2) Cocaine dependence Current Visit: No Status: Chronic Qualifiers: Substance use status: uncomplicated Qualified Code(s): F14.20 - Cocaine dependence, uncomplicated (3) Nicotine dependence Current Visit: No Status: Chronic Qualifiers: Nicotine product type: cigarettes Substance use status: in withdrawal Qualified Code(s): F17.213 - Nicotine dependence, cigarettes, with withdrawal (4) Cannabis dependence Current Visit: No Status: Chronic (5) Hyperlipidemia Current Visit: No Status: Chronic Qualifiers: Hyperlipidemia type: pure hypercholesterolemia Qualified Code(s): E78.00 - Pure hypercholesterolemia, unspecified (6) Hypertension Current Visit: No Status: Chronic Qualifiers: Hypertension type: essential hypertension Qualified Code(s): I10 - Essential (primary) hypertension (7) Low back pain Current Visit: No Status: Chronic Qualifiers: Chronicity: chronic Back pain laterality: midline Sciatica presence: without sciatica Qualified Code(s): M54.5 - Low back pain; G89.29 - Other chronic pain (8) Old [place] (myocardial infarction) Current Visit: No Status: Chronic (9) PPD positive Current Visit: No Status: Chronic Cleared for Admission [facility] - Detox or Rehab [facility] Level of Care: Medically Managed Detox Regimen/Protocol: Librium [facility] Breath Alcohol Content Breath Alcohol Content: 0 Urine Drug Screen - Results Drug Screen Negative: Yes Urine Drug Screen Results: THC-Marijuana, DEEPIKA-Cocaine, AMP-Amphetamines Inpatient Rehab Admission - Rehab Decision to Admit Inpatient rehab admission?: No
[2018-06-22] MEDS ORDERED: MAGNESIUM HYDROX 2400MG/30ML ORAL SUSPENSION 30 ML CUP PO PRN (20:49)
[2018-06-22] MEDS ORDERED: P-EPHED 60MG/TRIPROLIDI 2.5MG TABLET PO PRN (20:49)
[2018-06-22] MEDS ORDERED: guaiFENesin/D-METHORPHAN HB 10 ML UNIT-DOSE CUPS PO PRN (20:49)
[2018-06-22] MEDS ORDERED: ACETAMINOPHEN 325 MG TABLET (FP) PO PRN (20:49)
[2018-06-22] MEDS ORDERED: MENTHOL/PHENOL 1 EACH UD MM PRN (20:49)
[2018-06-22] MEDS ORDERED: LOPERAMIDE HCL 2 MG CAPSULE PO PRN (20:49)
[2018-06-22] MEDS ORDERED: MAGNESIUM CITRATE 300 ML BOTTLE PO PRN (20:49)
[2018-06-22] MEDS ORDERED: MAG HYDROX/AL HYDROX/SIMETH 30 ML UNIT-DOSE CUP PO PRN (20:49)
[2018-06-22] MEDS ORDERED: chlordiazePOXIDE HCL 25 MG CAPSULE PO PRN (20:49)
[2018-06-22] MEDS ORDERED: IBUPROFEN 400 MG TABLET (FP) PO PRN (20:49)
[2018-06-22] MEDS: chlordiazePOXIDE HCL 25 MG CAPSULE PO SCH (23:01)
[2018-06-22] MEDS: ATORVASTATIN CA 40 MG TABLET (FP) PO SCH (23:01)
[2018-06-22] MEDS: THIAMINE HCL 100 MG TABLET (FP) PO SCH (23:01)
[2018-06-22] MEDS: NICOTINE 14 MG/24 HOURS TOPICAL PATCH TD SCH (23:04)
[2018-06-22] MEDS: METOPROLOL TARTRATE 50 MG TABLET (FP) PO SCH (23:04)
[2018-06-23] MEDS: chlordiazePOXIDE HCL 25 MG CAPSULE PO SCH ×4 (05:57→22:49)
[2018-06-23 10:28] LABS: HEMATOCRIT 37.3 % (35.4-49); HEMOGLOBIN 12.9 GM/dL (11.7-16.9); MCH 36.1 pg (25.7-33.7); MCHC 34.7 g/dl (32.0-35.9); MEAN CELL VOLUME 104.3 fl (80-96); MEAN PLT VOLUME 8.8 fl (7.5-11.1); PLATELET COUNT 218 K/MM3 (134-434); RBC 3.58 M/mm3 (4.00-5.60); RDW 13.3 % (11.9-15.9); WHITE BLOOD COUNT 6.9 K/mm3 (4.0-10.0)
[2018-06-23] MEDS: ASPIRIN 81 MG CHEWABLE TABLETS PO SCH (10:46)
[2018-06-23] MEDS: CLOPIDOGREL BISULFATE 75 MG TABLET (FP) PO SCH (10:46)
[2018-06-23] MEDS: METOPROLOL TARTRATE 50 MG TABLET (FP) PO SCH ×2 (10:46→22:50)
[2018-06-23] MEDS: PRENATAL VITAMINS W/ FOLIC ACID TABLET (FP) PO SCH (10:46)
[2018-06-23] MEDS: LISINOPRIL 5 MG TABLET (FP) PO SCH (10:46)
[2018-06-23] MEDS: NICOTINE 14 MG/24 HOURS TOPICAL PATCH TD SCH (10:47)
[2018-06-23 10:58] LABS: ALBUMIN 3.4 g/dl (3.4-5.0); ALK PHOS 44 U/L (45-117); ANION GAP 5 MMOL/L (8-16); BILIRUBIN,TOTAL 0.6 mg/dL (0.2-1); BLOOD UREA NITROGEN 13 mg/dL (7-18); CALCIUM 8.4 mg/dL (8.5-10.1); CHLORIDE 107 mmol/L (98-107); CO2 26 mmol/L (21-32); CREATININE 0.8 mg/dL (0.55-1.3); GLUCOSE,RANDOM 87 mg/dL (74-106); POTASSIUM 3.8 mmol/L (3.5-5.1); SGOT/AST 10 U/L (15-37); SGPT/ALT 17 U/L (13-61); SODIUM 138 mmol/L (136-145); TOT PROT 6.3 g/dl (6.4-8.2)
[2018-06-23] MEDS ORDERED: COLLOIDAL OATMEAL 1 BAR EACH TP PRN (18:09)
--- NOTE | 2018-06-23 18:18 | PN ---
S CIWA - CIWA Score Nausea/Vomitin-No Nausea/No Vomiting Muscle Tremors: 3 Anxiety: 3 Agitation: 3 Paroxysmal Sweats: 3 Orientation: 1-Uncertain about Date Tacttile Disturbances: 0-None Auditory Disturbances: 0-None Visual Disturbances: 0-None Headache: 0-None Present CIWA-Ar Total Score: 13 B[facility] Progress Note (SOAP) Subjective: sweats shakes Sleeping but arousable to verbal stimuli A & ox 3 in no distress Vital Signs Temperature 98.1 F 06/23/18 17:27 Pulse Rate 57 L 06/23/18 17:27 Respiratory Rate 16 06/23/18 17:27 Blood Pressure 119/74 06/23/18 17:27 O2 Sat by Pulse Oximetry (%) low HR, no cardiac complaint offered Saw EKG earlier Laboratory Last Values WBC 6.9 K/mm3 (4.0-10.0) 06/23/18 07:40 RBC 3.58 M/mm3 (4.00-5.60) L 06/23/18 07:40 Hgb 12.9 GM/dL (11.7-16.9) 06/23/18 07:40 Hct 37.3 % (35.4-49) 06/23/18 07:40 MCV 104.3 fl (80-96) H 06/23/18 07:40 MCH 36.1 pg (25.7-33.7) H 06/23/18 07:40 MCHC 34.7 g/dl (32.0-35.9) 06/23/18 07:40 RDW 13.3 % (11.9-15.9) 06/23/18 07:40 Plt Count 218 K/MM3 (134-434) 06/23/18 07:40 MPV 8.8 fl (7.5-11.1) 06/23/18 07:40 Sodium 138 mmol/L (136-145) 06/23/18 07:40 Potassium 3.8 mmol/L (3.5-5.1) 06/23/18 07:40 Chloride 107 mmol/L (98-107) 06/23/18 07:40 Carbon Dioxide 26 mmol/L (21-32) 06/23/18 07:40 Anion Gap 5 MMOL/L (8-16) L 06/23/18 07:40 BUN 13 mg/dL (7-18) 06/23/18 07:40 Creatinine 0.8 mg/dL (0.55-1.3) 06/23/18 07:40 Creat Clearance w eGFR > 60 (>60) 06/23/18 07:40 POC Glucometer 109 UNITS (80-120) 06/23/18 11:28 Random Glucose 87 mg/dL (74-106) 06/23/18 07:40 Calcium 8.4 mg/dL (8.5-10.1) L 06/23/18 07:40 Total Bilirubin 0.6 mg/dL (0.2-1) 06/23/18 07:40 AST 10 U/L (15-37) L 06/23/18 07:40 ALT 17 U/L (13-61) 06/23/18 07:40 Alkaline Phosphatase 44 U/L (45-117) L 06/23/18 07:40 Total Protein 6.3 g/dl (6.4-8.2) L 06/23/18 07:40 Albumin 3.4 g/dl (3.4-5.0) 06/23/18 07:40 RPR Titer Nonreactive (NONREACTIVE) 06/23/18 07:40 labs noted withdrawal sx Continue detox increase hydration Continue to monitor clinical symptoms
[2018-06-23] MEDS: NICOTINE POLACRILEX 2 MG GUM BC PRN (21:28)
--- NOTE | 2018-06-23 22:18 | EKG ---
Test Reason : Blood Pressure : / mmHG Vent. Rate : 070 BPM Atrial Rate : 070 BPM P-R Int : 188 ms QRS Dur : 120 ms QT Int : 388 ms P-R-T Axes : 072 094 026 degrees QTc Int : 419 ms NORMAL SINUS RHYTHM NON-SPECIFIC INTRA-VENTRICULAR CONDUCTION DELAY NONSPECIFIC ST ABNORMALITY ABNORMAL ECG WHEN COMPARED WITH ECG OF 22-JUN-2018 22:06, NO SIGNIFICANT CHANGE WAS FOUND Confirmed by RAMIRO JHAVERI, BARBER ([id number]) on 06/23/2018 10:17:41 PM Referred By: REAL TAYLOR Confirmed By:BARBER RUBIO MD
--- NOTE | 2018-06-23 22:18 | EKG ---
Test Reason : Blood Pressure : / mmHG Vent. Rate : 061 BPM Atrial Rate : 061 BPM P-R Int : 190 ms QRS Dur : 118 ms QT Int : 396 ms P-R-T Axes : 077 090 014 degrees QTc Int : 398 ms NORMAL SINUS RHYTHM WITH SINUS ARRHYTHMIA RIGHTWARD AXIS NON-SPECIFIC INTRA-VENTRICULAR CONDUCTION DELAY BORDERLINE ECG WHEN COMPARED WITH ECG OF 30-APR-2018 15:50, NO SIGNIFICANT CHANGE WAS FOUND Confirmed by RAMIRO JHAVERI, BARBER ([id number]) on 06/23/2018 10:17:54 PM Referred By: Confirmed By:BARBER RUBIO MD
[2018-06-23] MEDS: THIAMINE HCL 100 MG TABLET (FP) PO SCH (22:49)
[2018-06-23] MEDS: ATORVASTATIN CA 40 MG TABLET (FP) PO SCH (22:50)
[2018-06-24] MEDS: MELATONIN 5 MG TABLETS PO PRN ×2 (01:24→22:32)
[2018-06-24] MEDS: chlordiazePOXIDE HCL 25 MG CAPSULE PO SCH ×3 (05:21→17:58)
[2018-06-24] MEDS: CLOPIDOGREL BISULFATE 75 MG TABLET (FP) PO SCH (10:45)
[2018-06-24] MEDS: ASPIRIN 81 MG CHEWABLE TABLETS PO SCH (10:45)
[2018-06-24] MEDS: METOPROLOL TARTRATE 50 MG TABLET (FP) PO SCH ×2 (10:46→22:32)
[2018-06-24] MEDS: PRENATAL VITAMINS W/ FOLIC ACID TABLET (FP) PO SCH (10:46)
[2018-06-24] MEDS: NICOTINE 14 MG/24 HOURS TOPICAL PATCH TD SCH (10:46)
[2018-06-24] MEDS: LISINOPRIL 5 MG TABLET (FP) PO SCH (10:46)
[2018-06-24] MEDS: NICOTINE POLACRILEX 2 MG GUM BC PRN ×3 (11:02→17:59)
--- NOTE | 2018-06-24 12:42 | PN ---
[facility] CIWA - CIWA Score Nausea/Vomitin-No Nausea/No Vomiting Muscle Tremors: 3 Anxiety: 1-Mildly Anxious Agitation: 2 Paroxysmal Sweats: 1-Minimal Palms Moist Orientation: 0-Oriented Tacttile Disturbances: 0-None Auditory Disturbances: 0-None Visual Disturbances: 0-None Headache: 2-Mild CIWA-Ar Total Score: 9 S Progress Note (SOAP) Subjective: trouble slept through the night tremor sweating Objective: 06/24/18 12:41 Vital Signs Temperature 96.5 F L 06/24/18 09:27 Pulse Rate 61 06/24/18 09:27 Respiratory Rate 18 06/24/18 09:27 Blood Pressure 128/86 06/24/18 09:27 O2 Sat by Pulse Oximetry (%) Laboratory Last Values WBC 6.9 K/mm3 (4.0-10.0) 06/23/18 07:40 RBC 3.58 M/mm3 (4.00-5.60) L 06/23/18 07:40 Hgb 12.9 GM/dL (11.7-16.9) 06/23/18 07:40 Hct 37.3 % (35.4-49) 06/23/18 07:40 MCV 104.3 fl (80-96) H 06/23/18 07:40 MCH 36.1 pg (25.7-33.7) H 06/23/18 07:40 MCHC 34.7 g/dl (32.0-35.9) 06/23/18 07:40 RDW 13.3 % (11.9-15.9) 06/23/18 07:40 Plt Count 218 K/MM3 (134-434) 06/23/18 07:40 MPV 8.8 fl (7.5-11.1) 06/23/18 07:40 Sodium 138 mmol/L (136-145) 06/23/18 07:40 Potassium 3.8 mmol/L (3.5-5.1) 06/23/18 07:40 Chloride 107 mmol/L (98-107) 06/23/18 07:40 Carbon Dioxide 26 mmol/L (21-32) 06/23/18 07:40 Anion Gap 5 MMOL/L (8-16) L 06/23/18 07:40 BUN 13 mg/dL (7-18) 06/23/18 07:40 Creatinine 0.8 mg/dL (0.55-1.3) 06/23/18 07:40 Creat Clearance w eGFR > 60 (>60) 06/23/18 07:40 POC Glucometer 109 UNITS (80-120) 06/23/18 11:28 Random Glucose 87 mg/dL (74-106) 06/23/18 07:40 Calcium 8.4 mg/dL (8.5-10.1) L 06/23/18 07:40 Total Bilirubin 0.6 mg/dL (0.2-1) 06/23/18 07:40 AST 10 U/L (15-37) L 06/23/18 07:40 ALT 17 U/L (13-61) 06/23/18 07:40 Alkaline Phosphatase 44 U/L (45-117) L 06/23/18 07:40 Total Protein 6.3 g/dl (6.4-8.2) L 06/23/18 07:40 Albumin 3.4 g/dl (3.4-5.0) 06/23/18 07:40 RPR Titer Nonreactive (NONREACTIVE) 06/23/18 07:40 lab noted Assessment: 06/24/18 12:41 withdrawal sx Plan: continue detox
[2018-06-24] MEDS: ATORVASTATIN CA 40 MG TABLET (FP) PO SCH (22:32)
[2018-06-24] MEDS: chlordiazePOXIDE 5 MG CAPSULE PO SCH (22:32)
[2018-06-24] MEDS: THIAMINE HCL 100 MG TABLET (FP) PO SCH (22:32)
[2018-06-25] MEDS: chlordiazePOXIDE 5 MG CAPSULE PO SCH ×2 (05:27→11:01)
[2018-06-25 06:36] VITALS: BP 112/71; PULSE 50; TEMP 97.1
--- NOTE | 2018-06-25 08:39 | PN ---
[facility] Progress Note (SOAP) Subjective: patient has chest x ray done on 11/2017 result in chart discontinue chest x ray for +PPD
[2018-06-25] MEDS: NICOTINE 14 MG/24 HOURS TOPICAL PATCH TD SCH (10:59)
[2018-06-25] MEDS: ASPIRIN 81 MG CHEWABLE TABLETS PO SCH (10:59)
[2018-06-25] MEDS: METOPROLOL TARTRATE 50 MG TABLET (FP) PO SCH (10:59)
[2018-06-25] MEDS: LISINOPRIL 5 MG TABLET (FP) PO SCH (11:00)
[2018-06-25] MEDS: CLOPIDOGREL BISULFATE 75 MG TABLET (FP) PO SCH (11:00)
[2018-06-25] MEDS: PRENATAL VITAMINS W/ FOLIC ACID TABLET (FP) PO SCH (11:00)
--- NOTE | 2018-06-25 15:08 | DS ---
[facility] Detox Discharge Summary Admission Date: 06/22/18 Discharge Date: 06/25/18 - History Present History: Alcohol Dependence Additional Comments: 53 years old male admitted on 06/22/18 for alcohol withdrawal stabilization patient preferred to leave the detox unit today appears angry and hesitates to talk about feelings and concerns discuss routine discharge will be 06/26/18 but if feeling better and able to manage alcohol withdrawal symptoms then today's discharge can be successfully counted for completion the detox the patient insists to leave the detox unit today refuses to discuss reason for leaving today refuses to reveal alcohol withdrawal symptoms multidisciplinary team discussed against medical advice is proper discharge due to patient refuses the reveal alcohol withdrawal sx and the reason for leaving detox today Pertinent Past History: keep medication list in wallet bring-in bottles of medication to aftercare appointment update medication list when change of medications bring-in lab report to follow up appointment important of medication adherence - Physical Exam Results Vital Signs: Vital Signs Temperature 97.1 F L 06/25/18 06:35 Pulse Rate 50 L 06/25/18 06:35 Respiratory Rate 18 06/25/18 06:35 Blood Pressure 112/71 06/25/18 06:35 O2 Sat by Pulse Oximetry (%) Pertinent Admission Physical Exam Findings: 12 step community self help groups - Treatment Hospital Course: Detox Protocol Followed Patient has Accepted a Rehab Referral to: self help 12 step community goups and meetings - Medication Discharge Medications: Ambulatory Orders Aspirin [ASA -] 81 mg PO DAILY 08/16/16 Loratadine [Claritin -] 10 mg PO DAILY 08/16/16 Atorvastatin Ca [Lipitor] 40 mg PO HS #1 tablet 05/03/18 Clopidogrel Bisulfate [Plavix -] 75 mg PO DAILY #30 tablet 05/03/18 Lisinopril 5 mg PO DAILY #30 tablet 05/03/18 Metoprolol Tartrate [Lopressor -] 50 mg PO BID #60 tablet 05/03/18 - Diagnosis (1) Nicotine dependence Status: Acute Qualifiers: Nicotine product type: cigarettes Substance use status: in withdrawal Qualified Code(s): F17.213 - Nicotine dependence, cigarettes, with withdrawal (2) Hyperglycemia Status: Chronic (3) Drug-induced mood disorder Status: Suspected (4) Weight loss Status: Acute (5) Alcohol dependence with uncomplicated withdrawal Status: Acute (6) Hypertension Status: Chronic Qualifiers: Hypertension type: essential hypertension Qualified Code(s): I10 - Essential (primary) hypertension (7) PPD positive Status: Resolved - AMA Did Patient Leave Against Medical Advice: Yes
[2018-06-25] MEDS ORDERED: chlordiazePOXIDE HCL 10 MG CAPSULE PO SCH (23:00)
== END 2018-06-25 09:43 | disposition home or self-care (01) | DRG 774 ==
LOC: YASAS 16:10 → Y3N 20:46
PROVIDERS: ADMIT Surgery; ATTEND Surgery
PROC: HZ2ZZZZ Detoxification Services for Substance Abuse Treatment (ICD-10-PCS; principal; 2018-06-22)
DX: F10.230 Alcohol dependence with withdrawal, uncomplicated (principal); F14.20 Cocaine dependence, uncomplicated; F12.20 Cannabis dependence, uncomplicated; F17.213 Nicotine dependence, cigarettes, with withdrawal; F19.24 Other psychoactive substance dependence with psychoactive substance-induced mood disorder; F41.9 Anxiety disorder, unspecified; I25.10 Atherosclerotic heart disease of native coronary artery without angina pectoris; I10 Essential (primary) hypertension; I25.2 Old myocardial infarction; M54.5 Low back pain; G89.29 Other chronic pain; R63.4 Abnormal weight loss; Z68.22 Body mass index [BMI] 22.0-22.9, adult; R76.11 Nonspecific reaction to tuberculin skin test without active tuberculosis
CPT/HCPCS: 36415; 80053; 82962; 85027; 86593; 93005; 93010

== ENCOUNTER 2018-08-03 13:41 | Inpatient (IN) | payer OTHER ==
[2018-08-03 16:34] VITALS: BMI 23.0
--- NOTE | 2018-08-03 17:51 | HP ---
CIWA Score Nausea/Vomitin-Mild Nausea/No Vomiting Muscle Tremors: 3 Anxiety: 3 Agitation: 4-Moderately Restless Paroxysmal Sweats: 1-Minimal Palms Moist Orientation: 0-Oriented Tacttile Disturbances: 0-None Auditory Disturbances: 0-None Visual Disturbances: 0-None Headache: 0-None Present CIWA-Ar Total Score: 12 - Admission Criteria OASAS Guidelines: Admission for Medically Managed Detox: Requires at least one of the followin. CIWA greater than 12 2. Seizures within the past 24 hours 3. Delirium tremens within the past 24 hours 4. Hallucinations within the past 24 hours 5. Acute intervention needed for co occurring medical disorder 6. Acute intervention needed for co occurring psychiatric disorder 7. Severe withdrawal that cannot be handled at a lower level of care (continued vomiting, continued diarrhea, abnormal vital signs) requiring intravenous medication and/or fluids 8. Patient presents the following: CIWA greater than 12 Admission Criteria Met: Admission criteria met Admission ROS [facility] - [facility] Chief Complaint: Here w/ alcohol withdrawal. Allergies/Adverse Reactions: Allergies Allergy/AdvReac Type Severity Reaction Status Date / Time lactose Allergy Severe Hives Verified 08/03/18 16:18 No Known Drug Allergies Allergy Verified 08/03/18 16:18 History of Present Illness: Here for alcohol detox. Is considering Vivitrol on discharge provided by out- patient program. Alcohol use began at age 38. Currently drinks Cocaine use began at age 23. Marijuana use began at age 12. Nicotine use began at age 14. Blackout - 6 months. Denies seizure or overdoses. Longest length of sobriety 7 months. PMHx: Myocardial infarct in 2016. Last EKG's at [facility] abnormal. Denies chest pain or SOB. WBC's in urine. hypertension, hyperlipidemia, diarrhea x 2 weeks , Perforated (L) ear drum, PPD Positive. Last CXR 12/11/17. MHHx: Anxiety, insomnia. Occ depression. Denies thoughts of harming self or others. Patient Name: Nigel Bennett Date: 1965 Address: [address] [place] [address] Sex: Male Rx Written Rx Dispensed Drug Quantity Days Supply Prescriber Name 07/14/2018 07/24/2018 acetaminophen-cod #3 tablet 10 5 Ats[place], Belen Apostolos DMD Exam Limitations: No Limitations - Ebola screening Have you traveled outside of the country in the last 21 days: No (N) Have you had contact with anyone from an Ebola affected area: No Have you been sick,other than usual withdrawal symptoms: No Do you have a fever: No - Review of Systems Constitutional: Chills, Changes in sleep (Difficulty staying asleep -) EENT: reports: Blurred Vision, Ear Discharge (Hx Perforated ear drum. On ear drops), Ocular Prothesis (Missing teeth.), Nose Congestion (Hx allergies - take Loratadine) Respiratory: reports: Other (SOB when smoking) Cardiac: reports: Other (Hx heart attack) GI: reports: Diarrhea (watery brownish-yellow x 2 weeks.), Nausea (MIld nausea) : reports: No Symptoms Reported Musculoskeletal: reports: Back Pain (Intermittent back pain. No pain at this time. Increases w/ staying in positions for too long, improves w/ movement, tylenol) Integumentary: reports: No Symptoms Reported Neuro: reports: Tremors (mild) Endocrine: reports: No Symptoms Reported Hematology: reports: No Symptoms Reported Psychiatric: reports: Judgement Intact, Orientated x3, Agitated, Anxious, Depressed (Occ depression. Denies thoughts of harming self or others.) Patient History - Patient Medical History Hx Anemia: No Hx Asthma: No Hx Chronic Obstructive Pulmonary Disease (COPD): No Hx Cancer: No Hx Cardiac Disorders: No Hx Congestive Heart Failure: No Hx Hypertension: Yes (Metoprolol, Lisinopril, Aspirin) Hx Hypercholesterolemia: Yes (Atorvastatin ) Hx Pacemaker: No HX Cerebrovascular Accident: No Hx Seizures: No Hx Dementia: No Hx Diabetes: No Hx Gastrointestinal Disorders: No Hx Liver Disease: No Hx Genitourinary Disorders: No Hx Sexually Transmitted Disorders: No Hx Renal Disease (ESRD): No Hx Thyroid Disease: No Hx Human Immunodeficiency Virus (HIV): No (Negative 2018) Hx Hepatitis C: No Hx Depression: No Hx Suicide Attempt: No (Denies suicidal ideation at this time) Hx Bipolar Disorder: No Hx Schizophrenia: No - Patient Surgical History Past Surgical History: No Hx Neurologic Surgery: No Hx Cataract Extraction: No Hx Cardiac Surgery: No Hx Lung Surgery: No Hx Breast Surgery: No Hx Breast Biopsy: No Hx Abdominal Surgery: Yes (BILATERAL INGUINAL HERNIA ) Hx Appendectomy: No Hx Cholecystectomy: No Hx Genitourinary Surgery: No Hx Section: No Hx Orthopedic Surgery: No Other Surgical History: Bilateral inguinal hernia repair 01/14 Anesthesia Reaction: No - PPD History Previous Implant?: Yes Implanted On Prior [facility] Admission?: Yes Date: 07/31/95 Results: cxr neg PPD to be Administered?: No - Smoking Cessation Smoking history: Current every day smoker Have you smoked in the past 12 months: Yes Aproximately how many cigarettes per day: 10 Hx Chewing Tobacco Use: No Initiated information on smoking cessation: Yes 'Breaking Loose' booklet given: 08/03/18 - Substance & Tx. History Hx Alcohol Use: Yes Hx Substance Use: Yes Substance Use Type: Alcohol, Cocaine Hx Substance Use Treatment: Yes (detox, rehab) - Substances abused Alcohol Substance route: Oral Frequency: Daily Amount used: a lot Age of first use: 38 Date of last use: 08/03/18 Cocaine Substance route: Smoking Frequency: 3-6 times per week Amount used: 200 hundred dollars Age of first use: 12 Date of last use: 08/03/18 Family Disease History - Family Disease History Family Disease History: Diabetes: Brother (two - living- one with dm, younger in recovery), CA: Father (, etoh), Other: Father, Mother (, lupus, etoh, drugs), Brother Admission Physical Exam [facility] - Vital Signs Vital Signs: Vital Signs - 24 hr 08/03/18 08/03/18 16:28 17:13 Temperature 97.4 F L 97.4 F L Pulse Rate 61 61 Respiratory 18 18 Rate Blood Pressure 110/61 110/65 - Physical General Appearance: Yes: Nourished, Appropriately Dressed, Mild Distress, Tremorous (Mild tremors), Sweating (Increased facial moisture), Anxious HEENTM: Yes: EOMI (Slight jerking of eyes on (R) lateral gaze), Hearing grossly Normal, Normocephalic, Normal Voice, REBECCA, Pharynx Normal, Nasal Congestion, Other (Perforated (L) TM. No increased erythema. 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 NML intact (Slight jerking of eyes on (R) lateral gaze) Integumentary: Yes: Within Normal Limits Lymphatic: Yes: Within Normal Limits - Diagnostic (1) Alcohol dependence with uncomplicated withdrawal Current Visit: Yes Status: Acute (2) Nicotine dependence Current Visit: Yes Status: Chronic Qualifiers: Nicotine product type: cigarettes Substance use status: in withdrawal Qualified Code(s): F17.213 - Nicotine dependence, cigarettes, with withdrawal (3) Cannabis dependence Current Visit: Yes Status: Chronic (4) Cocaine dependence Current Visit: Yes Status: Chronic Qualifiers: Substance use status: uncomplicated Qualified Code(s): F14.20 - Cocaine dependence, uncomplicated (5) History of positive PPD Current Visit: Yes Status: Chronic (6) History of abnormal electrocardiogram Current Visit: Yes Status: Chronic (7) Perforated tympanic membrane Current Visit: Yes Status: Chronic Qualifiers: Laterality: left Qualified Code(s): H72.92 - Unspecified perforation of tympanic membrane, left ear Cleared for Admission S - Detox or Rehab [facility] Level of Care: Medically Managed Detox Regimen/Protocol: Librium Breathalyzer - Breathalyzer Breathalyzer: 0 Urine Drug Screen - Test Device Lot number: [id number] Expiration date: 03/30/20 - Control Is test valid?: Yes - Results Drug screen NEGATIVE: No Urine drug screen results: THC-Marijuana, DEEPIKA-Cocaine Inpatient Rehab Admission - Rehab Decision to Admit Inpatient rehab admission?: No
[2018-08-03] MEDS ORDERED: guaiFENesin 200 MG/10 ML 10 ML UNIT-DOSE CUPS PO PRN (18:21)
[2018-08-03] MEDS ORDERED: chlordiazePOXIDE HCL 10 MG CAPSULE PO PRN (18:21)
[2018-08-03] MEDS ORDERED: MAG HYDROX/AL HYDROX/SIMETH 30 ML UNIT-DOSE CUP PO PRN (18:21)
[2018-08-03] MEDS ORDERED: P-EPHED 60MG/TRIPROLIDI 2.5MG TABLET PO PRN (18:21)
[2018-08-03] MEDS ORDERED: PROCHLORPERAZINE MALEATE 5 MG TABLET PO PRN (18:21)
[2018-08-03] MEDS ORDERED: MENTHOL/PHENOL 1 EACH UD MM PRN (18:21)
[2018-08-03] MEDS ORDERED: MELATONIN 5 MG TABLETS PO PRN (18:21)
[2018-08-03] MEDS ORDERED: MAGNESIUM CITRATE 300 ML BOTTLE PO PRN (18:21)
[2018-08-03] MEDS ORDERED: BISMUTH SUBSALICYLATE 524 MG/30 ML UD PO PRN (18:21)
[2018-08-03] MEDS ORDERED: ACETAMINOPHEN 325 MG TABLET (FP) PO PRN ×2 (18:21)
[2018-08-03] MEDS ORDERED: chlordiazePOXIDE HCL 25 MG CAPSULE PO ONE (18:21)
[2018-08-03] MEDS ORDERED: MAGNESIUM HYDROX 2400MG/30ML ORAL SUSPENSION 30 ML CUP PO PRN (18:21)
[2018-08-03] MEDS ORDERED: METHOCARBAMOL 500 MG TABLET PO PRN (18:21)
[2018-08-03] MEDS ORDERED: COLLOIDAL OATMEAL 1 BAR EACH TP PRN (18:27)
[2018-08-03] MEDS: chlordiazePOXIDE HCL 25 MG CAPSULE PO SCH (22:00)
[2018-08-03] MEDS: METOPROLOL TARTRATE 50 MG TABLET (FP) PO SCH (22:33)
[2018-08-03] MEDS: THIAMINE HCL 100 MG TABLET (FP) PO SCH (22:33)
[2018-08-03] MEDS: ATORVASTATIN CA 40 MG TABLET (FP) PO SCH (22:33)
[2018-08-03] MEDS: NEOMYCIN/POLYMYXN/HC OTIC SOLUTION 10 ML BOTTLE AD SCH (23:00)
[2018-08-03] MEDS: FLUTICASONE PROP 0.05% 16 GM NASAL SPRAY NS SCH (23:00)
[2018-08-03 23:41] LABS: PH,URINE 5.5 (5.0-8.0); URINE APPEARANCE CLEAR; URINE BILIRUBIN NEGATIVE (NEGATIVE); URINE COLOR YELLOW; URINE GLUCOSE (UA) NEGATIVE (NEGATIVE); URINE KETONE NEGATIVE (NEGATIVE); URINE LEUK ESTERASE NEGATIVE (NEGATIVE); URINE NITRITE NEGATIVE (NEGATIVE); URINE PROTEIN NEGATIVE (NEGATIVE)
[2018-08-04] MEDS: NEOMYCIN/POLYMYXN/HC OTIC SOLUTION 10 ML BOTTLE AD SCH ×3 (05:10→22:03)
[2018-08-04] MEDS: chlordiazePOXIDE HCL 25 MG CAPSULE PO SCH ×2 (05:10→14:23)
[2018-08-04 10:08] LABS: ALBUMIN 3.4 g/dl (3.4-5.0); ALK PHOS 42 U/L (45-117); ANION GAP 5 MMOL/L (8-16); BILIRUBIN,TOTAL 0.6 mg/dL (0.2-1); BLOOD UREA NITROGEN 11 mg/dL (7-18); CALCIUM 8.5 mg/dL (8.5-10.1); CHLORIDE 107 mmol/L (98-107); CO2 27 mmol/L (21-32); CREATININE 0.8 mg/dL (0.55-1.3); GLUCOSE,RANDOM 88 mg/dL (74-106); HEMOGLOBIN 13.4 GM/dL (11.7-16.9); MCH 34.7 pg (25.7-33.7); MCHC 33.5 g/dl (32.0-35.9); MEAN CELL VOLUME 103.4 fl (80-96); PLATELET COUNT 230 K/MM3 (134-434); POTASSIUM 4.2 mmol/L (3.5-5.1); RBC 3.87 M/mm3 (4.00-5.60); RDW 12.9 % (11.9-15.9); SGOT/AST 12 U/L (15-37); SGPT/ALT 23 U/L (13-61); SODIUM 139 mmol/L (136-145); TOT PROT 6.5 g/dl (6.4-8.2); WHITE BLOOD COUNT 5.5 K/mm3 (4.0-10.0)
[2018-08-04] MEDS: ASPIRIN 81 MG CHEWABLE TABLETS PO SCH (10:25)
[2018-08-04] MEDS: LORATADINE 10 MG TABLET PO SCH (10:25)
[2018-08-04] MEDS: PRENATAL VITAMINS W/ FOLIC ACID TABLET (FP) PO SCH (10:25)
[2018-08-04] MEDS: CLOPIDOGREL BISULFATE 75 MG TABLET (FP) PO SCH (10:25)
[2018-08-04] MEDS: NICOTINE 21 MG/24 HOURS TOPICAL PATCH TD SCH (10:25)
[2018-08-04] MEDS: FLUTICASONE PROP 0.05% 16 GM NASAL SPRAY NS SCH ×2 (10:27→22:03)
[2018-08-04] MEDS: LISINOPRIL 5 MG TABLET (FP) PO SCH (10:27)
[2018-08-04] MEDS: METOPROLOL TARTRATE 50 MG TABLET (FP) PO SCH ×2 (14:58→22:03)
--- NOTE | 2018-08-04 17:06 | PN ---
S CIWA - CIWA Score Nausea/Vomitin-Mild Nausea/No Vomiting Muscle Tremors: 3 Anxiety: 2 Agitation: 3 Paroxysmal Sweats: 3 Orientation: 0-Oriented Tacttile Disturbances: 0-None Auditory Disturbances: 0-None Visual Disturbances: 0-None Headache: 0-None Present CIWA-Ar Total Score: 12 S Progress Note (SOAP) Subjective: sweats shakes Objective: 08/04/18 17:04 tremors irritable Vital Signs Temperature 97.3 F L 08/04/18 13:43 Pulse Rate 77 08/04/18 13:43 Respiratory Rate 18 08/04/18 13:43 Blood Pressure 141/82 08/04/18 13:43 O2 Sat by Pulse Oximetry (%) Laboratory Last Values WBC 5.5 K/mm3 (4.0-10.0) 08/04/18 07:45 RBC 3.87 M/mm3 (4.00-5.60) L 08/04/18 07:45 Hgb 13.4 GM/dL (11.7-16.9) 08/04/18 07:45 Hct 40.0 % (35.4-49) 08/04/18 07:45 MCV 103.4 fl (80-96) H 08/04/18 07:45 MCH 34.7 pg (25.7-33.7) H 08/04/18 07:45 MCHC 33.5 g/dl (32.0-35.9) 08/04/18 07:45 RDW 12.9 % (11.9-15.9) 08/04/18 07:45 Plt Count 230 K/MM3 (134-434) 08/04/18 07:45 MPV 9.0 fl (7.5-11.1) 08/04/18 07:45 Sodium 139 mmol/L (136-145) 08/04/18 07:45 Potassium 4.2 mmol/L (3.5-5.1) 08/04/18 07:45 Chloride 107 mmol/L (98-107) 08/04/18 07:45 Carbon Dioxide 27 mmol/L (21-32) 08/04/18 07:45 Anion Gap 5 MMOL/L (8-16) L 08/04/18 07:45 BUN 11 mg/dL (7-18) 08/04/18 07:45 Creatinine 0.8 mg/dL (0.55-1.3) 08/04/18 07:45 Creat Clearance w eGFR 100.36 (>60) 08/04/18 07:45 Random Glucose 88 mg/dL (74-106) 08/04/18 07:45 Calcium 8.5 mg/dL (8.5-10.1) 08/04/18 07:45 Total Bilirubin 0.6 mg/dL (0.2-1) 08/04/18 07:45 AST 12 U/L (15-37) L 08/04/18 07:45 ALT 23 U/L (13-61) 08/04/18 07:45 Alkaline Phosphatase 42 U/L (45-117) L 08/04/18 07:45 Total Protein 6.5 g/dl (6.4-8.2) 08/04/18 07:45 Albumin 3.4 g/dl (3.4-5.0) 08/04/18 07:45 Urine Color Yellow 08/03/18 21:37 Urine Appearance Clear 08/03/18 21:37 Urine pH 5.5 (5.0-8.0) 08/03/18 21:37 Ur Specific [place] 1.022 (1.010-1.035) 08/03/18 21:37 Urine Protein Negative (NEGATIVE) 08/03/18 21:37 Urine Glucose (UA) Negative (NEGATIVE) 08/03/18 21:37 Urine Ketones Negative (NEGATIVE) 08/03/18 21:37 Urine Blood Negative (NEGATIVE) 08/03/18 21:37 Urine Nitrite Negative (NEGATIVE) 08/03/18 21:37 Urine Bilirubin Negative (NEGATIVE) 08/03/18 21:37 Urine Urobilinogen 1.0 mg/dL (0.2-1.0) 08/03/18 21:37 Ur Leukocyte Esterase Negative (NEGATIVE) 08/03/18 21:37 RPR Titer Nonreactive (NONREACTIVE) 08/04/18 07:45 labs noted Assessment: 08/04/18 17:06 withdrawal sx Plan: continue detox increase water hydration
[2018-08-04] MEDS: NICOTINE POLACRILEX 2 MG GUM BUC PRN (19:34)
[2018-08-04] MEDS: chlordiazePOXIDE 5 MG CAPSULE PO SCH (22:00)
[2018-08-04] MEDS: THIAMINE HCL 100 MG TABLET (FP) PO SCH (22:03)
[2018-08-04] MEDS: ATORVASTATIN CA 40 MG TABLET (FP) PO SCH (22:03)
[2018-08-05] MEDS: chlordiazePOXIDE 5 MG CAPSULE PO SCH ×2 (05:15→14:37)
[2018-08-05] MEDS: NEOMYCIN/POLYMYXN/HC OTIC SOLUTION 10 ML BOTTLE AD SCH ×3 (05:16→22:52)
[2018-08-05] MEDS: LISINOPRIL 5 MG TABLET (FP) PO SCH (10:17)
[2018-08-05] MEDS: CLOPIDOGREL BISULFATE 75 MG TABLET (FP) PO SCH (10:17)
[2018-08-05] MEDS: ASPIRIN 81 MG CHEWABLE TABLETS PO SCH (10:17)
[2018-08-05] MEDS: PRENATAL VITAMINS W/ FOLIC ACID TABLET (FP) PO SCH (10:17)
[2018-08-05] MEDS: LORATADINE 10 MG TABLET PO SCH (10:17)
[2018-08-05] MEDS: FLUTICASONE PROP 0.05% 16 GM NASAL SPRAY NS SCH ×2 (10:17→22:52)
[2018-08-05] MEDS: NICOTINE 21 MG/24 HOURS TOPICAL PATCH TD SCH (10:17)
[2018-08-05] MEDS: METOPROLOL TARTRATE 50 MG TABLET (FP) PO SCH ×2 (10:18→22:51)
--- NOTE | 2018-08-05 16:18 | PN ---
[facility] CIWA - CIWA Score Nausea/Vomitin-Mild Nausea/No Vomiting Muscle Tremors: 3 Anxiety: 3 Agitation: 3 Paroxysmal Sweats: 3 Orientation: 0-Oriented Tacttile Disturbances: 0-None Auditory Disturbances: 0-None Visual Disturbances: 0-None Headache: 0-None Present CIWA-Ar Total Score: 13 [facility] Progress Note (SOAP) Subjective: Stomachache, diarrhea x 3, interrupted sleep. Patient made aware to request medication for diarrhea from nurse after showing staff diarrhea before flushing toilet. Objective: 08/05/18 16:17 Last Vital Signs Temp Pulse Resp BP Pulse Ox 97.0 F L 60 16 115/66 08/05/18 15:45 08/05/18 15:45 08/05/18 15:45 08/05/18 15:45 Laboratory Tests 08/03/18 08/04/18 08/04/18 21:37 07:45 07:45 WBC 5.5 RBC 3.87 L Hgb 13.4 Hct 40.0 MCV 103.4 H MCH 34.7 H MCHC 33.5 RDW 12.9 Plt Count 230 MPV 9.0 Sodium 139 Potassium 4.2 Chloride 107 Carbon Dioxide 27 Anion Gap 5 L BUN 11 Creatinine 0.8 Creat Clearance w eGFR 100.36 Random Glucose 88 Calcium 8.5 Total Bilirubin 0.6 AST 12 L ALT 23 Alkaline Phosphatase 42 L Total Protein 6.5 Albumin 3.4 Urine Color Yellow Urine Appearance Clear Urine pH 5.5 Ur Specific [place] 1.022 Urine Protein Negative Urine Glucose (UA) Negative Urine Ketones Negative Urine Blood Negative Urine Nitrite Negative Urine Bilirubin Negative Urine Urobilinogen 1.0 Ur Leukocyte Esterase Negative RPR Titer 08/04/18 07:45 WBC RBC Hgb Hct MCV MCH MCHC RDW Plt Count MPV Sodium Potassium Chloride Carbon Dioxide Anion Gap BUN Creatinine Creat Clearance w eGFR Random Glucose Calcium Total Bilirubin AST ALT Alkaline Phosphatase Total Protein Albumin Urine Color Urine Appearance Urine pH Ur Specific [place] Urine Protein Urine Glucose (UA) Urine Ketones Urine Blood Urine Nitrite Urine Bilirubin Urine Urobilinogen Ur Leukocyte Esterase RPR Titer Nonreactive Labs reviewed Assessment: 08/05/18 16:17 Withdrawal symptoms Plan: Continue detox Encouraged PO water hydration
[2018-08-05] MEDS ORDERED: chlordiazePOXIDE HCL 10 MG CAPSULE PO PRN (21:00)
[2018-08-05] MEDS: THIAMINE HCL 100 MG TABLET (FP) PO SCH (22:51)
[2018-08-05] MEDS: ATORVASTATIN CA 40 MG TABLET (FP) PO SCH (22:51)
[2018-08-05] MEDS: chlordiazePOXIDE HCL 10 MG CAPSULE PO SCH (22:52)
[2018-08-06] MEDS: chlordiazePOXIDE HCL 10 MG CAPSULE PO SCH ×3 (05:04→22:35)
[2018-08-06] MEDS: NEOMYCIN/POLYMYXN/HC OTIC SOLUTION 10 ML BOTTLE AD SCH ×3 (05:05→22:35)
[2018-08-06] MEDS: LISINOPRIL 5 MG TABLET (FP) PO SCH (09:59)
[2018-08-06] MEDS: FLUTICASONE PROP 0.05% 16 GM NASAL SPRAY NS SCH ×2 (09:59→22:35)
[2018-08-06] MEDS: CLOPIDOGREL BISULFATE 75 MG TABLET (FP) PO SCH (09:59)
[2018-08-06] MEDS: PRENATAL VITAMINS W/ FOLIC ACID TABLET (FP) PO SCH (09:59)
[2018-08-06] MEDS: ASPIRIN 81 MG CHEWABLE TABLETS PO SCH (09:59)
[2018-08-06] MEDS: LORATADINE 10 MG TABLET PO SCH (09:59)
[2018-08-06] MEDS: METOPROLOL TARTRATE 50 MG TABLET (FP) PO SCH ×2 (09:59→22:35)
[2018-08-06] MEDS: NICOTINE 21 MG/24 HOURS TOPICAL PATCH TD SCH (10:00)
--- NOTE | 2018-08-06 11:40 | PN ---
[facility] Progress Note (SOAP) Subjective: irritable interrupted sleep Objective: 08/06/18 11:39 Vital Signs Temperature 97.5 F L 08/06/18 09:26 Pulse Rate 569 H 08/06/18 09:26 Respiratory Rate 18 08/06/18 09:26 Blood Pressure 142/84 08/06/18 09:26 O2 Sat by Pulse Oximetry (%) [id number] ambulating no acute distress Assessment: 08/06/18 11:39 mild withdrawal sx Plan: continue detox increase fluids d/c in am
[2018-08-06] MEDS: NICOTINE POLACRILEX 2 MG GUM BUC PRN (20:18)
[2018-08-06] MEDS: ATORVASTATIN CA 40 MG TABLET (FP) PO SCH (22:35)
[2018-08-06] MEDS: THIAMINE HCL 100 MG TABLET (FP) PO SCH (22:35)
[2018-08-07] MEDS: NEOMYCIN/POLYMYXN/HC OTIC SOLUTION 10 ML BOTTLE AD SCH (05:36)
--- NOTE | 2018-08-07 09:14 | DS ---
[facility] Detox Discharge Summary Admission Date: 08/03/18 Discharge Date: 08/07/18 - History Present History: Alcohol Dependence, Cannabis Dependence, Cocaine Dependence - Physical Exam Results Vital Signs: Vital Signs Temperature 97.5 F L 08/07/18 07:52 Pulse Rate 49 L 08/07/18 07:52 Respiratory Rate 18 08/07/18 07:52 Blood Pressure 97/54 L 08/07/18 07:52 O2 Sat by Pulse Oximetry (%) - Treatment Hospital Course: Detox Protocol Followed, Detoxed Safely, Responded well, Discharged Condition Good, Rehab Referral Accepted - Medication Discharge Medications: Ambulatory Orders Aspirin [ASA -] 81 mg PO DAILY 08/16/16 Loratadine [Claritin -] 10 mg PO DAILY 08/16/16 Atorvastatin Ca [Lipitor] 40 mg PO HS #1 tablet 05/03/18 Clopidogrel Bisulfate [Plavix -] 75 mg PO DAILY #30 tablet 05/03/18 Lisinopril 5 mg PO DAILY #30 tablet 05/03/18 Metoprolol Tartrate [Lopressor -] 50 mg PO BID #60 tablet 05/03/18 Fluticasone Propionate [Flovent Diskus] 50 mcg IH DAILY 08/03/18 Neomycin Sulf/Polymyxin B Sulf 3.5 - 1,000 drop TID 08/03/18 - Diagnosis (1) Alcohol dependence with uncomplicated withdrawal Current Visit: Yes Status: Chronic (2) Cannabis dependence Current Visit: Yes Status: Chronic (3) Cocaine dependence Current Visit: Yes Status: Chronic Qualifiers: Substance use status: uncomplicated Qualified Code(s): F14.20 - Cocaine dependence, uncomplicated (4) History of abnormal electrocardiogram Current Visit: Yes Status: Chronic (5) History of positive PPD Current Visit: Yes Status: Chronic (6) Nicotine dependence Current Visit: Yes Status: Chronic Qualifiers: Nicotine product type: cigarettes Substance use status: in withdrawal Qualified Code(s): F17.213 - Nicotine dependence, cigarettes, with withdrawal (7) Perforated tympanic membrane Current Visit: Yes Status: Chronic Qualifiers: Laterality: left Qualified Code(s): H72.92 - Unspecified perforation of tympanic membrane, left ear (8) HUEY (acute kidney injury) Current Visit: No Status: Acute (9) Hypertension Current Visit: Yes Status: Chronic Qualifiers: Hypertension type: essential hypertension Qualified Code(s): I10 - Essential (primary) hypertension (10) Old [place] (myocardial infarction) Current Visit: No Status: Chronic (11) Drug-induced mood disorder Current Visit: No Status: Suspected (12) PPD positive Current Visit: No Status: Resolved - AMA Did Patient Leave Against Medical Advice: No
[2018-08-07] MEDS: NICOTINE 21 MG/24 HOURS TOPICAL PATCH TD SCH (09:32)
[2018-08-07] MEDS: ASPIRIN 81 MG CHEWABLE TABLETS PO SCH (09:32)
[2018-08-07] MEDS: PRENATAL VITAMINS W/ FOLIC ACID TABLET (FP) PO SCH (09:32)
[2018-08-07] MEDS: LORATADINE 10 MG TABLET PO SCH (09:32)
[2018-08-07] MEDS: METOPROLOL TARTRATE 50 MG TABLET (FP) PO SCH (09:32)
[2018-08-07] MEDS: LISINOPRIL 5 MG TABLET (FP) PO SCH (09:32)
[2018-08-07] MEDS: CLOPIDOGREL BISULFATE 75 MG TABLET (FP) PO SCH (09:32)
[2018-08-07] MEDS: FLUTICASONE PROP 0.05% 16 GM NASAL SPRAY NS SCH (09:32)
[2018-08-07 09:54] VITALS: BP 130/88; PULSE 80; TEMP 97.7
== END 2018-08-07 09:29 | disposition home or self-care (01) | DRG 774 ==
LOC: YASAS 13:41 → Y6N 19:00
PROVIDERS: ADMIT Surgery; ATTEND Surgery
PROC: HZ2ZZZZ Detoxification Services for Substance Abuse Treatment (ICD-10-PCS; principal; 2018-08-03)
DX: F10.230 Alcohol dependence with withdrawal, uncomplicated (principal); F14.20 Cocaine dependence, uncomplicated; F12.20 Cannabis dependence, uncomplicated; F19.24 Other psychoactive substance dependence with psychoactive substance-induced mood disorder; F41.9 Anxiety disorder, unspecified; I10 Essential (primary) hypertension; N17.9 Acute kidney failure, unspecified; I25.2 Old myocardial infarction; E78.00 Pure hypercholesterolemia, unspecified; G47.00 Insomnia, unspecified; H72.92 Unspecified perforation of tympanic membrane, left ear; R76.11 Nonspecific reaction to tuberculin skin test without active tuberculosis; R94.31 Abnormal electrocardiogram [ECG] [EKG]
CPT/HCPCS: 36415; 80053; 81003; 85027; 86593

== ENCOUNTER 2018-12-06 12:11 | Inpatient (IN) | payer OTHER ==
[2018-12-06 12:33] VITALS: BMI 21.7
[2018-12-06] MEDS ORDERED: MAGNESIUM HYDROX 2400MG/30ML ORAL SUSPENSION 30 ML CUP PO PRN (14:59)
[2018-12-06] MEDS ORDERED: hydrOXYzine HCL 25 MG TABLET (FP) PO PRN (14:59)
[2018-12-06] MEDS ORDERED: MENTHOL/PHENOL 1 EACH UD MM PRN (14:59)
[2018-12-06] MEDS ORDERED: BISMUTH SUBSALICYLATE 262 MG/15 ML BTL PO PRN (14:59)
[2018-12-06] MEDS ORDERED: MAGNESIUM CITRATE 300 ML BOTTLE PO PRN (14:59)
[2018-12-06] MEDS ORDERED: IBUPROFEN 400 MG TABLET (FP) PO PRN (14:59)
[2018-12-06] MEDS ORDERED: MELATONIN 5 MG TABLETS PO PRN (14:59)
[2018-12-06] MEDS ORDERED: METHOCARBAMOL 500 MG TABLET PO PRN (14:59)
[2018-12-06] MEDS ORDERED: ACETAMINOPHEN 325 MG TABLET (FP) PO PRN ×2 (14:59)
[2018-12-06] MEDS ORDERED: chlordiazePOXIDE HCL 25 MG CAPSULE PO PRN (14:59)
[2018-12-06] MEDS ORDERED: MAG HYDROX/AL HYDROX/SIMETH 30 ML UNIT-DOSE CUP PO PRN (14:59)
--- NOTE | 2018-12-06 15:14 | PN ---
Teaching Attending Note Name of Resident: Rosalia Gallardo ATTENDING PHYSICIAN STATEMENT I saw and evaluated the patient. I reviewed the resident's note and discussed the case with the resident. I agree with the resident's findings and plan as documented. SUBJECTIVE: this 53 years old male with alcohol,cocaine,marijuana dependence,history of mi 4 years ago, no chest pain,no sob,positive ppd OBJECTIVE: withdrawal signs and symptom Vital Signs Temperature 98.4 F 12/06/18 13:47 Pulse Rate 69 12/06/18 13:47 Respiratory Rate 18 12/06/18 13:47 Blood Pressure 147/89 12/06/18 13:47 O2 Sat by Pulse Oximetry (%) ASSESSMENT AND PLAN: patient need inpatient detox,medically managed,librium regimen, further level of care after detox,out patient program
--- NOTE | 2018-12-06 15:36 | HP ---
CIWA Score Nausea/Vomitin-Int. Nausea w/Dry Heave Muscle Tremors: 2 Anxiety: 2 Agitation: 1-Slight > Activity Paroxysmal Sweats: 3 Orientation: 0-Oriented Tacttile Disturbances: 1-Very Mild Itch/Numbness Auditory Disturbances: 0-None Visual Disturbances: 0-None Headache: 2-Mild CIWA-Ar Total Score: 15 - Admission Criteria OASAS Guidelines: Admission for Medically Managed Detox: Requires at least one of the followin. CIWA greater than 12 2. Seizures within the past 24 hours 3. Delirium tremens within the past 24 hours 4. Hallucinations within the past 24 hours 5. Acute intervention needed for co occurring medical disorder 6. Acute intervention needed for co occurring psychiatric disorder 7. Severe withdrawal that cannot be handled at a lower level of care (continued vomiting, continued diarrhea, abnormal vital signs) requiring intravenous medication and/or fluids 8. Admission ROS [facility] Chief Complaint: Detox from ETOH, cocaine, and marijuana Allergies/Adverse Reactions: Allergies Allergy/AdvReac Type Severity Reaction Status Date / Time lactose Allergy Severe Hives Verified 12/06/18 12:33 No Known Drug Allergies Allergy Verified 12/06/18 12:33 History of Present Illness: Mr. Bennett is a 53yo male with hx of alcohol use disorder, cocaine use disorder , marijuana use disorder, [place] (3-4 years ago), HTN, HLD, and seasonal allergies who presents for detox from ETOH, crack cocaine, and marijuana. He has been drinking 5 pints vodka and 5 6-packs of beer daily. His last drink was 4am. He has been drinking for 10 years. Pt reports smoking crack cocaine about $500 daily. His last use was 8am. He began using in 1981. He also reports smoking marijuana, 1-3 oz daily since age 12. He smokes 1ppd tobacco since age 12. He has been in detox multiple times with the last being about 7 months ago. He was sober for 1 month before using again. He reports having access to money as a trigger. He has been in rehab twice with the last being 2018. He has been incarcerated in the past and has been off parole since 2009. He lives in [place] with one roommate. 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 PMH: [place], HTN, HLD, ETOH use disorder, cocaine use disorder, marijuana use disorder, tobacco use disorder surgical hx: L inguinal hernia, umbilical hernia fam hx: father-alcoholism meds: metoprolol, loratadine, lisinopril, ASA, atovastatin NKDA, lactose allergy - Ebola screening Have you traveled outside of the country in the last 21 days: No Have you had contact with anyone from an Ebola affected area: No Do you have a fever: No - Review of Systems Constitutional: Diaphoresis, Night Sweats EENT: reports: No Symptoms Reported Respiratory: reports: Wheezing. denies: Cough, Shortness of Breath Cardiac: denies: Chest Pain, Palpitations GI: reports: Diarrhea, Nausea, Abdominal cramping. denies: Vomiting : reports: No Symptoms Reported Musculoskeletal: reports: Muscle Pain Integumentary: reports: No Symptoms Reported Neuro: reports: Headache, Paresthesia. denies: Dizziness Endocrine: reports: No Symptoms Reported Hematology: reports: No Symptoms Reported Psychiatric: reports: Judgement Intact, Mood/Affect Appropiate, Orientated x3 Patient History - Patient Medical History Hx Anemia: No Hx Asthma: No Hx Chronic Obstructive Pulmonary Disease (COPD): No Hx Cancer: No Hx Cardiac Disorders: Yes (Hx of CAD) Hx Congestive Heart Failure: No Hx Hypertension: Yes (on meds) Hx Hypercholesterolemia: Yes (Atorvastatin ) Hx Pacemaker: No HX Cerebrovascular Accident: No Hx Seizures: No Hx Dementia: No Hx Diabetes: No Hx Gastrointestinal Disorders: No Hx Liver Disease: No Hx Genitourinary Disorders: No Hx Sexually Transmitted Disorders: No Hx Renal Disease (ESRD): No Hx Thyroid Disease: No Hx Human Immunodeficiency Virus (HIV): No (Negative 2018) Hx Hepatitis C: No Hx Depression: No Hx Suicide Attempt: No Hx Bipolar Disorder: No Hx Schizophrenia: No - Patient Surgical History Past Surgical History: Yes Hx Neurologic Surgery: No Hx Cataract Extraction: No Hx Cardiac Surgery: No Hx Lung Surgery: No Hx Breast Surgery: No Hx Breast Biopsy: No Hx Abdominal Surgery: Yes (Left inguinal hernia, umbilical hernia) Hx Appendectomy: No Hx Cholecystectomy: No Hx Genitourinary Surgery: No Hx Section: No Hx Orthopedic Surgery: No Anesthesia Reaction: No - PPD History Previous Implant?: Yes Documented Results: Positive w/proof Implanted On Prior R Admission?: No Date: 07/31/95 Results: cxr neg - Smoking Cessation Smoking history: Current every day smoker Have you smoked in the past 12 months: Yes Aproximately how many cigarettes per day: 20 Hx Chewing Tobacco Use: No Initiated information on smoking cessation: Yes 'Breaking Loose' booklet given: 12/06/18 - Substances abused Alcohol Substance route: Oral Frequency: Daily Amount used: vodka-5pts/ beers- 6pks (24oz) Age of first use: 43 Date of last use: 12/05/18 Cocaine Other (specify): crack Substance route: Smoking Frequency: Daily Amount used: 500 hundred dollars Age of first use: 20 Date of last use: 12/06/18 Marijuana/Hashish Substance route: Smoking Frequency: Daily Amount used: $50 Age of first use: 12 Date of last use: 12/06/18 Family Disease History - Family Disease History Family Disease History: Diabetes: Brother (two - living- one with dm, younger in recovery), [place]: Father (, etoh), Other: Father, Mother (, lupus, etoh, drugs), Brother Admission Physical Exam S - Vital Signs Vital Signs: Vital Signs - 24 hr 12/06/18 12/06/18 12:22 13:47 Temperature 98.4 F 98.4 F Pulse Rate 69 69 Respiratory 18 18 Rate Blood Pressure 147/89 147/89 - Physical General Appearance: Yes: No Apparent Distress HEENTM: Yes: Hearing grossly Normal, Normocephalic, REBECCA, Pharynx Normal Respiratory: Yes: Lungs Clear, Normal Breath Sounds, No Respiratory Distress, No Accessory Muscle Use Neck: Yes: Within Normal Limits Cardiology: Yes: Regular Rhythm, Regular Rate, Systolic Murmur Abdominal: Yes: Normal Bowel Sounds, Non Tender Back: Yes: Within Normal Limits Musculoskeletal: Yes: full range of Motion Extremities: Yes: Normal Range of Motion 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: 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: 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 NML intact, Fully Oriented, Alert, Motor Strength 5/5, Normal Mood/Affect Integumentary: Yes: Within Normal Limits - Diagnostic (1) Alcohol use disorder Current Visit: Yes Status: Chronic (2) Cannabis dependence Current Visit: Yes Status: Chronic (3) Cocaine dependence Current Visit: Yes Status: Chronic Qualifiers: Substance use status: uncomplicated Qualified Code(s): F14.20 - Cocaine dependence, uncomplicated (4) History of positive PPD Current Visit: No Status: Chronic (5) Hypertension Current Visit: Yes Status: Chronic Qualifiers: Hypertension type: essential hypertension Qualified Code(s): I10 - Essential (primary) hypertension (6) Nicotine dependence Current Visit: Yes Status: Chronic Qualifiers: Nicotine product type: cigarettes Substance use status: in withdrawal Qualified Code(s): F17.213 - Nicotine dependence, cigarettes, with withdrawal (7) Old [place] (myocardial infarction) Current Visit: No Status: Chronic Cleared for Admission S - Detox or Rehab [facility] Level of Care: Medically Managed Breathalyzer - Breathalyzer Breathalyzer: 0 Urine Drug Screen - Test Device Lot number: [id number] Expiration date: 08/28/20 - Control Is test valid?: Yes - Results Drug screen NEGATIVE: No Urine drug screen results: THC-Marijuana, DEEPIKA-Cocaine Inpatient Rehab Admission - Rehab Decision to Admit Inpatient rehab admission?: No
[2018-12-06] MEDS ORDERED: COLLOIDAL OATMEAL 1 BAR EACH TP PRN (15:47)
[2018-12-06 16:45] LABS: HEMATOCRIT 37.9 % (35.4-49); MCH 35.5 pg (25.7-33.7); MCHC 34.2 g/dl (32.0-35.9); MEAN CELL VOLUME 103.8 fl (80-96); MEAN PLT VOLUME 8.7 fl (7.5-11.1); PLATELET COUNT 240 K/MM3 (134-434); RBC 3.66 M/mm3 (4.00-5.60); RDW 12.9 % (11.9-15.9); WHITE BLOOD COUNT 4.5 K/mm3 (4.0-10.0)
[2018-12-06 16:59] LABS: ALBUMIN 3.7 g/dl (3.4-5.0); BILIRUBIN,TOTAL 0.5 mg/dL (0.2-1); BLOOD UREA NITROGEN 15.4 mg/dL (7-18); CALCIUM 8.6 mg/dL (8.5-10.1); CREATININE 0.9 mg/dL (0.55-1.3); POTASSIUM 4.1 mmol/L (3.5-5.1); TOT PROT 6.9 g/dl (6.4-8.2)
[2018-12-06] MEDS: chlordiazePOXIDE HCL 25 MG CAPSULE PO SCH ×2 (17:22→22:20)
[2018-12-06] MEDS: NICOTINE POLACRILEX 2 MG GUM BUC PRN (17:24)
[2018-12-06] MEDS: NICOTINE 14 MG/24 HOURS TOPICAL PATCH TD SCH (17:27)
[2018-12-06] MEDS ORDERED: LISINOPRIL 20 MG TABLET (FP) PO ONE (18:00)
[2018-12-06] MEDS: THIAMINE HCL 100 MG TABLET (FP) PO SCH (22:20)
[2018-12-06] MEDS: ATORVASTATIN CA 40 MG TABLET (FP) PO SCH (22:20)
[2018-12-06] MEDS: METOPROLOL TARTRATE 50 MG TABLET (FP) PO SCH (22:20)
[2018-12-07] MEDS: chlordiazePOXIDE HCL 25 MG CAPSULE PO SCH ×4 (06:05→22:23)
[2018-12-07] MEDS: LORATADINE 10 MG TABLET PO SCH (10:22)
[2018-12-07] MEDS: PRENATAL VITAMINS W/ FOLIC ACID TABLET (FP) PO SCH (10:22)
[2018-12-07] MEDS: METOPROLOL TARTRATE 50 MG TABLET (FP) PO SCH ×2 (10:22→22:23)
[2018-12-07] MEDS: ASPIRIN 81 MG CHEWABLE TABLETS PO SCH (10:22)
[2018-12-07] MEDS: NICOTINE 14 MG/24 HOURS TOPICAL PATCH TD SCH (10:28)
[2018-12-07] MEDS: LISINOPRIL 5 MG TABLET (FP) PO SCH (10:28)
--- NOTE | 2018-12-07 13:52 | PN ---
[facility] CIWA - CIWA Score Nausea/Vomitin-No Nausea/No Vomiting Muscle Tremors: 3 Anxiety: 3 Agitation: 0-Normal Activity Paroxysmal Sweats: No Perspiration Orientation: 2-Disoriented Date<2 days Tacttile Disturbances: 2-Mild Itch/Numbness/Burn Auditory Disturbances: 0-None Visual Disturbances: 2-Mild Sensitivity Headache: 0-None Present CIWA-Ar Total Score: 12 BHS Progress Note (SOAP) Subjective: Fatigue, Anxious, Tremors. Objective: PATIENT A & O X 2 (UNCERTAIN ABOUT CURRENT DAY/DATE). PATIENT OBSERVED AMBULATING ON DETOX UNIT UNASSISTED. IN NO ACUTE DISTRESS. 12/07/18 13:51 Vital Signs Temperature 97.2 F L 12/07/18 13:26 Pulse Rate 48 L 12/07/18 13:26 Respiratory Rate 18 12/07/18 13:26 Blood Pressure 121/81 12/07/18 13:26 O2 Sat by Pulse Oximetry (%) Laboratory Tests 12/06/18 12/06/18 12/06/18 15:00 15:15 15:15 WBC 4.5 RBC 3.66 L Hgb 13.0 Hct 37.9 MCV 103.8 H MCH 35.5 H MCHC 34.2 RDW 12.9 Plt Count 240 MPV 8.7 Sodium 141 Potassium 4.1 Chloride 108 H Carbon Dioxide 28 Anion Gap 5 L BUN 15.4 Creatinine 0.9 Est GFR (CKD-EPI)AfAm 111.05 Est GFR (CKD-EPI)NonAf 95.81 Random Glucose 115 H Calcium 8.6 Total Bilirubin 0.5 AST 16 ALT 23 Alkaline Phosphatase 47 Total Protein 6.9 Albumin 3.7 RPR Titer HIV 1&2 Antibody Screen Cancelled HIV P24 Antigen Cancelled 12/06/18 15:15 WBC RBC Hgb Hct MCV MCH MCHC RDW Plt Count MPV Sodium Potassium Chloride Carbon Dioxide Anion Gap BUN Creatinine Est GFR (CKD-EPI)AfAm Est GFR (CKD-EPI)NonAf Random Glucose Calcium Total Bilirubin AST ALT Alkaline Phosphatase Total Protein Albumin RPR Titer Nonreactive HIV 1&2 Antibody Screen HIV P24 Antigen LABS NOTED. RESULTS OF DETOX ADMISSION HEP c AND HIV AB TESTS PENDING. 12/07/18 13:52 Assessment: 12/07/18 13:52 WITHDRAWAL SYMPTOMS. Plan: CONTINUE DETOX.
[2018-12-07] MEDS: THIAMINE HCL 100 MG TABLET (FP) PO SCH (22:23)
[2018-12-07] MEDS: ATORVASTATIN CA 40 MG TABLET (FP) PO SCH (22:23)
[2018-12-08] MEDS: chlordiazePOXIDE HCL 25 MG CAPSULE PO SCH ×4 (05:36→22:33)
[2018-12-08] MEDS: NICOTINE POLACRILEX 2 MG GUM BUC PRN (07:50)
--- NOTE | 2018-12-08 11:05 | PN ---
S CIWA - CIWA Score Nausea/Vomitin-No Nausea/No Vomiting Muscle Tremors: 2 Anxiety: 3 Agitation: 0-Normal Activity Paroxysmal Sweats: 3 Orientation: 0-Oriented Tacttile Disturbances: 0-None Auditory Disturbances: 0-None Visual Disturbances: 0-None Headache: 2-Mild CIWA-Ar Total Score: 10 S Progress Note (SOAP) Subjective: c/o sweats, anxiety, and headache. Objective: 12/08/18 11:04 Vital Signs 12/08/18 12/08/18 12/08/18 03:30 06:34 09:25 Temperature 96.4 F L 97.0 F L Pulse Rate 68 89 Respiratory 18 16 18 Rate Blood Pressure 121/83 155/94 Lab Results WBC 4.5 K/mm3 (4.0-10.0) 12/06/18 15:15 RBC 3.66 M/mm3 (4.00-5.60) L 12/06/18 15:15 Hgb 13.0 GM/dL (11.7-16.9) 12/06/18 15:15 Hct 37.9 % (35.4-49) 12/06/18 15:15 MCV 103.8 fl (80-96) H 12/06/18 15:15 MCHC 34.2 g/dl (32.0-35.9) 12/06/18 15:15 RDW 12.9 % (11.9-15.9) 12/06/18 15:15 Plt Count 240 K/MM3 (134-434) 12/06/18 15:15 Sodium 141 mmol/L (136-145) 12/06/18 15:15 Potassium 4.1 mmol/L (3.5-5.1) 12/06/18 15:15 Chloride 108 mmol/L (98-107) H 12/06/18 15:15 Carbon Dioxide 28 mmol/L (21-32) 12/06/18 15:15 Anion Gap 5 MMOL/L (8-16) L 12/06/18 15:15 BUN 15.4 mg/dL (7-18) 12/06/18 15:15 Creatinine 0.9 mg/dL (0.55-1.3) 12/06/18 15:15 Random Glucose 115 mg/dL (74-106) H 12/06/18 15:15 Calcium 8.6 mg/dL (8.5-10.1) 12/06/18 15:15 Labs noted. Assessment: 12/08/18 11:04 AOX3, in no acute respiratory distress Full ROM, ambulating in the unit. withdrawal symptoms. Plan: continue detox.
[2018-12-08] MEDS: NICOTINE 14 MG/24 HOURS TOPICAL PATCH TD SCH (12:23)
[2018-12-08] MEDS: ASPIRIN 81 MG CHEWABLE TABLETS PO SCH (14:44)
[2018-12-08] MEDS: LORATADINE 10 MG TABLET PO SCH (14:44)
[2018-12-08] MEDS: METOPROLOL TARTRATE 50 MG TABLET (FP) PO SCH ×2 (14:45→22:33)
[2018-12-08] MEDS: PRENATAL VITAMINS W/ FOLIC ACID TABLET (FP) PO SCH (14:45)
[2018-12-08] MEDS: LISINOPRIL 5 MG TABLET (FP) PO SCH (14:45)
[2018-12-08] MEDS: ATORVASTATIN CA 40 MG TABLET (FP) PO SCH (22:33)
[2018-12-08] MEDS: THIAMINE HCL 100 MG TABLET (FP) PO SCH (22:33)
[2018-12-09] MEDS ORDERED: chlordiazePOXIDE HCL 10 MG CAPSULE PO PRN
[2018-12-09] MEDS: chlordiazePOXIDE HCL 10 MG CAPSULE PO SCH ×4 (06:00→22:41)
--- NOTE | 2018-12-09 11:11 | PN ---
[facility] CIWA - CIWA Score Nausea/Vomitin-No Nausea/No Vomiting Muscle Tremors: 2 Anxiety: 1-Mildly Anxious Agitation: 2 Paroxysmal Sweats: 2 Orientation: 0-Oriented Tacttile Disturbances: 0-None Auditory Disturbances: 0-None Visual Disturbances: 0-None Headache: 0-None Present CIWA-Ar Total Score: 7 BHS Progress Note (SOAP) Subjective: 53 years old male admitted on 12/06/18 for acute alcohol withdrawal sx management doing well with libirum detox regimen medical hystor of hypertension hyperlipidemia and seasonal allergy Objective: 12/09/18 11:07 Vital Signs Temperature 97.3 F L 12/09/18 06:20 Pulse Rate 50 L 12/09/18 06:20 Respiratory Rate 16 12/09/18 06:20 Blood Pressure 129/76 12/09/18 06:20 O2 Sat by Pulse Oximetry (%) 100 12/08/18 15:03 Laboratory Last Values WBC 4.5 K/mm3 (4.0-10.0) 12/06/18 15:15 RBC 3.66 M/mm3 (4.00-5.60) L 12/06/18 15:15 Hgb 13.0 GM/dL (11.7-16.9) 12/06/18 15:15 Hct 37.9 % (35.4-49) 12/06/18 15:15 MCV 103.8 fl (80-96) H 12/06/18 15:15 MCH 35.5 pg (25.7-33.7) H 12/06/18 15:15 MCHC 34.2 g/dl (32.0-35.9) 12/06/18 15:15 RDW 12.9 % (11.9-15.9) 12/06/18 15:15 Plt Count 240 K/MM3 (134-434) 12/06/18 15:15 MPV 8.7 fl (7.5-11.1) 12/06/18 15:15 Sodium 141 mmol/L (136-145) 12/06/18 15:15 Potassium 4.1 mmol/L (3.5-5.1) 12/06/18 15:15 Chloride 108 mmol/L (98-107) H 12/06/18 15:15 Carbon Dioxide 28 mmol/L (21-32) 12/06/18 15:15 Anion Gap 5 MMOL/L (8-16) L 12/06/18 15:15 BUN 15.4 mg/dL (7-18) 12/06/18 15:15 Creatinine 0.9 mg/dL (0.55-1.3) 12/06/18 15:15 Est GFR (CKD-EPI)AfAm 111.05 12/06/18 15:15 Est GFR (CKD-EPI)NonAf 95.81 12/06/18 15:15 Random Glucose 115 mg/dL (74-106) H 12/06/18 15:15 Calcium 8.6 mg/dL (8.5-10.1) 12/06/18 15:15 Total Bilirubin 0.5 mg/dL (0.2-1) 12/06/18 15:15 AST 16 U/L (15-37) 12/06/18 15:15 ALT 23 U/L (13-61) 12/06/18 15:15 Alkaline Phosphatase 47 U/L (45-117) 12/06/18 15:15 Total Protein 6.9 g/dl (6.4-8.2) 12/06/18 15:15 Albumin 3.7 g/dl (3.4-5.0) 12/06/18 15:15 RPR Titer Nonreactive (NONREACTIVE) 12/06/18 15:15 Hep C Ab Diagnostic <0.1 s/co ratio (0.0-0.9) 12/06/18 15:15 HIV 1&2 Ag/Ab, 4th Gen Non reactive (Non Reactive) 12/06/18 16:00 HIV 1&2 Antibody Screen Cancelled 12/06/18 15:00 HIV P24 Antigen Cancelled 12/06/18 15:00 lab noted Assessment: 12/09/18 11:08 alcohol withdrawal sx alert oriented x 3 speech clearly steady gait S1S2 no shortness of breathe Plan: continue librium detox regimen
[2018-12-09] MEDS: LISINOPRIL 5 MG TABLET (FP) PO SCH (11:43)
[2018-12-09] MEDS: LORATADINE 10 MG TABLET PO SCH (11:43)
[2018-12-09] MEDS: PRENATAL VITAMINS W/ FOLIC ACID TABLET (FP) PO SCH (11:43)
[2018-12-09] MEDS: ASPIRIN 81 MG CHEWABLE TABLETS PO SCH (11:43)
[2018-12-09] MEDS: METOPROLOL TARTRATE 50 MG TABLET (FP) PO SCH ×2 (11:43→22:42)
[2018-12-09] MEDS: NICOTINE 14 MG/24 HOURS TOPICAL PATCH TD SCH (11:45)
[2018-12-09] MEDS: ATORVASTATIN CA 40 MG TABLET (FP) PO SCH (22:41)
[2018-12-09] MEDS: THIAMINE HCL 100 MG TABLET (FP) PO SCH (22:42)
[2018-12-10] MEDS ORDERED: chlordiazePOXIDE HCL 10 MG CAPSULE PO SCH (05:00)
[2018-12-10 06:02] VITALS: BP 120/71; PULSE 58; TEMP 97.2
--- NOTE | 2018-12-10 14:54 | DS ---
[facility] Detox Discharge Summary Admission Date: 12/06/18 Discharge Date: 12/10/18 - History Present History: Alcohol Dependence Additional Comments: 53 years old male admitted on 12/06/18 for acute alcohol withdrawal sx management doing well with librium detox regimen feeling better today requests to begin alcohol recovery today no complication through out the detox stay denies dizziness no shortness of breathe denies suicidal ideation Pertinent Past History: hypertension positive ppd - Physical Exam Results Vital Signs: Vital Signs Temperature 97.2 F L 12/10/18 06:01 Pulse Rate 58 L 12/10/18 06:01 Respiratory Rate 18 12/10/18 06:30 Blood Pressure 120/71 12/10/18 06:01 O2 Sat by Pulse Oximetry (%) 100 12/08/18 15:03 Pertinent Admission Physical Exam Findings: alcohol withdrawal sx Laboratory Last Values WBC 4.5 K/mm3 (4.0-10.0) 12/06/18 15:15 RBC 3.66 M/mm3 (4.00-5.60) L 12/06/18 15:15 Hgb 13.0 GM/dL (11.7-16.9) 12/06/18 15:15 Hct 37.9 % (35.4-49) 12/06/18 15:15 MCV 103.8 fl (80-96) H 12/06/18 15:15 MCH 35.5 pg (25.7-33.7) H 12/06/18 15:15 MCHC 34.2 g/dl (32.0-35.9) 12/06/18 15:15 RDW 12.9 % (11.9-15.9) 12/06/18 15:15 Plt Count 240 K/MM3 (134-434) 12/06/18 15:15 MPV 8.7 fl (7.5-11.1) 12/06/18 15:15 Sodium 141 mmol/L (136-145) 12/06/18 15:15 Potassium 4.1 mmol/L (3.5-5.1) 12/06/18 15:15 Chloride 108 mmol/L (98-107) H 12/06/18 15:15 Carbon Dioxide 28 mmol/L (21-32) 12/06/18 15:15 Anion Gap 5 MMOL/L (8-16) L 12/06/18 15:15 BUN 15.4 mg/dL (7-18) 12/06/18 15:15 Creatinine 0.9 mg/dL (0.55-1.3) 12/06/18 15:15 Est GFR (CKD-EPI)AfAm 111.05 12/06/18 15:15 Est GFR (CKD-EPI)NonAf 95.81 12/06/18 15:15 Random Glucose 115 mg/dL (74-106) H 12/06/18 15:15 Calcium 8.6 mg/dL (8.5-10.1) 12/06/18 15:15 Total Bilirubin 0.5 mg/dL (0.2-1) 12/06/18 15:15 AST 16 U/L (15-37) 12/06/18 15:15 ALT 23 U/L (13-61) 12/06/18 15:15 Alkaline Phosphatase 47 U/L (45-117) 12/06/18 15:15 Total Protein 6.9 g/dl (6.4-8.2) 12/06/18 15:15 Albumin 3.7 g/dl (3.4-5.0) 12/06/18 15:15 RPR Titer Nonreactive (NONREACTIVE) 12/06/18 15:15 Hep C Ab Diagnostic <0.1 s/co ratio (0.0-0.9) 12/06/18 15:15 HIV 1&2 Ag/Ab, 4th Gen Non reactive (Non Reactive) 12/06/18 16:00 HIV 1&2 Antibody Screen Cancelled 12/06/18 15:00 HIV P24 Antigen Cancelled 12/06/18 15:00 alert oriented x 3 no wheezing S1S2 abdomen soft none tender lab noted - Treatment Hospital Course: Detox Protocol Followed, Detoxed Safely, Responded well, Discharged Condition Good, Rehab Referral Accepted Patient has Accepted a Rehab Referral to: [facility] - Medication Discharge Medications: Ambulatory Orders Aspirin [ASA -] 81 mg PO DAILY 08/16/16 Loratadine [Claritin -] 10 mg PO DAILY 08/16/16 Atorvastatin Ca [Lipitor] 40 mg PO HS #1 tablet 05/03/18 Clopidogrel Bisulfate [Plavix -] 75 mg PO DAILY #30 tablet 05/03/18 Metoprolol Tartrate [Lopressor -] 50 mg PO BID #60 tablet 05/03/18 Fluticasone Propionate [Flovent Diskus] 50 mcg IH DAILY 08/03/18 Lisinopril 2.5 mg PO DAILY 12/06/18 Neomycin/Polymyxin B/Hydrocort [Cbbyuhbm-Hcdinkoyf-Zj Ear Soln] 4 drp OT TID 12/17 - Diagnosis (1) Nicotine dependence Status: Acute Qualifiers: Nicotine product type: cigarettes Substance use status: in withdrawal Qualified Code(s): F17.213 - Nicotine dependence, cigarettes, with withdrawal (2) Alcohol dependence with uncomplicated withdrawal Status: Acute (3) Hypertension Status: Chronic Qualifiers: Hypertension type: essential hypertension Qualified Code(s): I10 - Essential (primary) hypertension (4) Old [place] (myocardial infarction) Status: Resolved (5) PPD positive Status: Resolved - AMA Did Patient Leave Against Medical Advice: No CIWA Score - CIWA Score Nausea/Vomitin-No Nausea/No Vomiting Muscle Tremors: 1-None Visible, but [place] Anxiety: 1-Mildly Anxious Agitation: 1-Slight > Activity Paroxysmal Sweats: 1-Minimal Palms Moist Orientation: 0-Oriented Tacttile Disturbances: 0-None Auditory Disturbances: 0-None Visual Disturbances: 0-None Headache: 0-None Present CIWA-Ar Total Score: 4
[2018-12-11] MEDS ORDERED: chlordiazePOXIDE HCL 10 MG CAPSULE PO ONE (05:00)
== END 2018-12-10 09:02 | disposition home or self-care (01) | DRG 774 ==
LOC: YASAS 12:11 → Y3N 15:09
PROVIDERS: ADMIT Surgery; ATTEND Surgery
PROC: HZ2ZZZZ Detoxification Services for Substance Abuse Treatment (ICD-10-PCS; principal; 2018-12-06)
DX: F10.230 Alcohol dependence with withdrawal, uncomplicated (principal); F14.20 Cocaine dependence, uncomplicated; F12.20 Cannabis dependence, uncomplicated; F17.210 Nicotine dependence, cigarettes, uncomplicated; I10 Essential (primary) hypertension; I25.2 Old myocardial infarction; I25.10 Atherosclerotic heart disease of native coronary artery without angina pectoris; R76.11 Nonspecific reaction to tuberculin skin test without active tuberculosis; E78.5 Hyperlipidemia, unspecified
CPT/HCPCS: 36415; 71046-TC-FY; 80053; 85027; 86593; 86803; 87389

== ENCOUNTER 2021-07-19 17:17 | Inpatient (IN) | payer OTHER ==
[2021-07-19 18:25] VITALS: BMI 23.1
[2021-07-19] MEDS ORDERED: ONDANSETRON *ODT* 4 MG TABLET SL PRN (18:45)
[2021-07-19] MEDS ORDERED: MAGNESIUM CITRATE 300 ML BOTTLE PO PRN (18:45)
[2021-07-19] MEDS ORDERED: DICYCLOMINE HCL 10 MG CAPSULE PO PRN (18:45)
[2021-07-19] MEDS ORDERED: LOPERAMIDE HCL 2 MG CAPSULE PO PRN (18:45)
[2021-07-19] MEDS ORDERED: P-EPHED 60MG/TRIPROLIDI 2.5MG TABLET PO PRN (18:45)
[2021-07-19] MEDS ORDERED: METHOCARBAMOL 500 MG TABLET PO PRN (18:45)
[2021-07-19] MEDS ORDERED: MAG HYDROX/AL HYDROX/SIMETH 30 ML UNIT-DOSE CUP PO PRN (18:45)
[2021-07-19] MEDS ORDERED: BISMUTH SUBSALICYLATE 524 MG/30 ML PO PRN (18:45)
[2021-07-19] MEDS ORDERED: ACETAMINOPHEN 325 MG TABLET (FP) PO PRN ×2 (18:45)
[2021-07-19] MEDS ORDERED: IBUPROFEN 400 MG TABLET (FP) PO PRN (18:45)
[2021-07-19] MEDS ORDERED: MAGNESIUM HYDROX 2400MG/30ML ORAL SUSPENSION 30 ML CUP PO PRN (18:45)
[2021-07-19] MEDS ORDERED: MENTHOL/PHENOL 1 EACH UD MM PRN (18:45)
[2021-07-19] MEDS ORDERED: chlordiazePOXIDE HCL 25 MG CAPSULE PO PRN (18:48)
[2021-07-19] MEDS ORDERED: COLLOIDAL OATMEAL 1 BAR EACH TP PRN (19:09)
[2021-07-19] MEDS ORDERED: METOPROLOL TARTRATE 50 MG TABLET (FP) PO ONE (21:30)
[2021-07-19] MEDS: chlordiazePOXIDE HCL 25 MG CAPSULE PO SCH (22:16)
[2021-07-19] MEDS: hydrOXYzine PAMOATE 25 MG CAPSULE (FP) PO PRN (22:16)
[2021-07-19] MEDS: MELATONIN 5 MG TABLETS PO PRN (22:16)
[2021-07-19] MEDS: THIAMINE HCL 100 MG TABLET (FP) PO SCH (22:16)
[2021-07-20] MEDS: chlordiazePOXIDE HCL 25 MG CAPSULE PO SCH ×4 (06:34→22:21)
[2021-07-20 09:49] LABS: HEMATOCRIT 36.5 % (35.4-49); HEMOGLOBIN 12.5 GM/dL (11.7-16.9); MCHC 34.2 g/dl (32.0-35.9); MEAN CELL VOLUME 102.4 fl (80-96); MEAN PLT VOLUME 8.7 fl (7.5-11.1); PLATELET COUNT 208 10^3/uL (134-434); RBC 3.56 M/mm3 (4.00-5.60); WHITE BLOOD COUNT 5.5 K/mm3 (4.0-10.0)
[2021-07-20] MEDS ORDERED: NICOTINE 7 MG/24 HOURS TOPICAL PATCH TD SCH (10:00)
[2021-07-20 10:08] LABS: CALCIUM 8.3 mg/dL (8.5-10.1)
[2021-07-20 10:09] LABS: ALBUMIN 3.4 g/dl (3.4-5.0); BLOOD UREA NITROGEN 13.7 mg/dL (7-18)
[2021-07-20 10:11] LABS: CREATININE 0.9 mg/dL (0.55-1.3)
[2021-07-20 10:13] LABS: BILIRUBIN,TOTAL 0.7 mg/dL (0.2-1); TOT PROT 6.6 g/dl (6.4-8.2)
[2021-07-20] MEDS: NICOTINE 21 MG/24 HOURS TOPICAL PATCH TD SCH (10:22)
[2021-07-20] MEDS ORDERED: COLLOIDAL OATMEAL 1 BAR EACH TP PRN (10:47)
[2021-07-20] MEDS: PRENATAL VITAMINS W/ FOLIC ACID TABLET (FP) PO SCH (10:59)
[2021-07-20] MEDS: CLOPIDOGREL BISULFATE 75 MG TABLET (FP) PO SCH (11:00)
[2021-07-20] MEDS: LISINOPRIL 5 MG TABLET PO SCH (11:00)
[2021-07-20] MEDS: METOPROLOL TARTRATE 50 MG TABLET (FP) PO SCH ×2 (11:00→22:20)
[2021-07-20] MEDS: ASPIRIN 81 MG CHEWABLE TABLETS PO SCH (11:04)
[2021-07-20] MEDS: NICOTINE POLACRILEX 2 MG GUM BUC PRN (19:24)
[2021-07-20] MEDS: ATORVASTATIN CA 40 MG TABLET (FP) PO SCH (22:20)
[2021-07-20] MEDS: MELATONIN 5 MG TABLETS PO PRN (22:21)
[2021-07-20] MEDS: THIAMINE HCL 100 MG TABLET (FP) PO SCH (22:21)
[2021-07-21] MEDS ORDERED: chlordiazePOXIDE HCL 25 MG CAPSULE PO SCH (05:00)
[2021-07-21] MEDS: PRENATAL VITAMINS W/ FOLIC ACID TABLET (FP) PO SCH (10:03)
[2021-07-21] MEDS: ASPIRIN 81 MG CHEWABLE TABLETS PO SCH (10:03)
[2021-07-21] MEDS: METOPROLOL TARTRATE 50 MG TABLET (FP) PO SCH ×2 (10:03→22:54)
[2021-07-21] MEDS: CLOPIDOGREL BISULFATE 75 MG TABLET (FP) PO SCH (10:03)
[2021-07-21] MEDS: LISINOPRIL 5 MG TABLET PO SCH (10:04)
[2021-07-21] MEDS: NICOTINE 21 MG/24 HOURS TOPICAL PATCH TD SCH (10:04)
[2021-07-21] MEDS: chlordiazePOXIDE HCL 10 MG CAPSULE PO SCH ×3 (10:06→22:54)
[2021-07-21] MEDS: NICOTINE POLACRILEX 2 MG GUM BUC PRN (10:41)
[2021-07-21] MEDS: hydrOXYzine PAMOATE 25 MG CAPSULE (FP) PO PRN (18:13)
[2021-07-21] MEDS ORDERED: NICOTINE 10 MG CARTRIDGE (INHALER) IH PRN (19:33)
[2021-07-21] MEDS: THIAMINE HCL 100 MG TABLET (FP) PO SCH (22:53)
[2021-07-21] MEDS: MELATONIN 5 MG TABLETS PO PRN (22:54)
[2021-07-21] MEDS: ATORVASTATIN CA 40 MG TABLET (FP) PO SCH (22:54)
[2021-07-22] MEDS ORDERED: chlordiazePOXIDE HCL 10 MG CAPSULE PO PRN
[2021-07-22] MEDS: chlordiazePOXIDE HCL 10 MG CAPSULE PO SCH ×2 (05:22→18:44)
[2021-07-22 08:06] LABS: SARS-CoV-2 NAA Not Detected (Not Detected)
[2021-07-22] MEDS: PRENATAL VITAMINS W/ FOLIC ACID TABLET (FP) PO SCH (10:17)
[2021-07-22] MEDS: METOPROLOL TARTRATE 50 MG TABLET (FP) PO SCH ×2 (10:17→22:43)
[2021-07-22] MEDS: ASPIRIN 81 MG CHEWABLE TABLETS PO SCH (10:17)
[2021-07-22] MEDS: CLOPIDOGREL BISULFATE 75 MG TABLET (FP) PO SCH (10:17)
[2021-07-22] MEDS: NICOTINE 21 MG/24 HOURS TOPICAL PATCH TD SCH (10:20)
[2021-07-22] MEDS: LISINOPRIL 5 MG TABLET PO SCH (10:22)
[2021-07-22] MEDS: ATORVASTATIN CA 40 MG TABLET (FP) PO SCH (22:43)
[2021-07-22] MEDS: THIAMINE HCL 100 MG TABLET (FP) PO SCH (22:43)
[2021-07-22] MEDS: MELATONIN 5 MG TABLETS PO PRN (22:44)
[2021-07-23] MEDS ORDERED: chlordiazePOXIDE HCL 10 MG CAPSULE PO ONE (05:00)
[2021-07-23 08:51] VITALS: BP 136/93; PULSE 88; TEMP 96.8
[2021-07-23] MEDS: CLOPIDOGREL BISULFATE 75 MG TABLET (FP) PO SCH (10:04)
[2021-07-23] MEDS: ASPIRIN 81 MG CHEWABLE TABLETS PO SCH (10:04)
[2021-07-23] MEDS: LISINOPRIL 5 MG TABLET PO SCH (10:04)
[2021-07-23] MEDS: PRENATAL VITAMINS W/ FOLIC ACID TABLET (FP) PO SCH (10:04)
[2021-07-23] MEDS: NICOTINE 21 MG/24 HOURS TOPICAL PATCH TD SCH (10:05)
[2021-07-23] MEDS: METOPROLOL TARTRATE 50 MG TABLET (FP) PO SCH (10:07)
== END 2021-07-23 11:00 | disposition other institution (70) | DRG 774 ==
LOC: YASAS 17:17 → Y3N 20:14
PROVIDERS: ADMIT Allergy & Immunology; ATTEND Allergy & Immunology
PROC: HZ2ZZZZ Detoxification Services for Substance Abuse Treatment (ICD-10-PCS; principal; 2021-07-19)
DX: F10.230 Alcohol dependence with withdrawal, uncomplicated (principal); F14.20 Cocaine dependence, uncomplicated; F12.20 Cannabis dependence, uncomplicated; F17.210 Nicotine dependence, cigarettes, uncomplicated; F19.24 Other psychoactive substance dependence with psychoactive substance-induced mood disorder; I10 Essential (primary) hypertension; I25.2 Old myocardial infarction; Z87.448 Personal history of other diseases of urinary system; Z86.11 Personal history of tuberculosis
CPT/HCPCS: 36415; 80053; 85027; 86780; 87811; C9803-CS; U0003; U0005

== ENCOUNTER 2021-07-23 11:18 | Inpatient (IN) | payer OTHER ==
[2021-07-23] MEDS ORDERED: NICOTINE 10 MG CARTRIDGE (INHALER) IH PRN (14:30)
[2021-07-23] MEDS ORDERED: MAGNESIUM HYDROX 2400MG/30ML ORAL SUSPENSION 30 ML CUP PO PRN (14:30)
[2021-07-23] MEDS ORDERED: hydrOXYzine PAMOATE 25 MG CAPSULE (FP) PO PRN (14:30)
[2021-07-23] MEDS ORDERED: IBUPROFEN 400 MG TABLET (FP) PO PRN (14:30)
[2021-07-23] MEDS ORDERED: P-EPHED 60MG/TRIPROLIDI 2.5MG TABLET PO PRN (14:30)
[2021-07-23] MEDS ORDERED: LOPERAMIDE HCL 2 MG CAPSULE PO PRN (14:30)
[2021-07-23] MEDS ORDERED: MAGNESIUM CITRATE 300 ML BOTTLE PO PRN (14:30)
[2021-07-23] MEDS ORDERED: guaiFENesin 200 MG/10 ML 10 ML UNIT-DOSE CUPS PO PRN (14:30)
[2021-07-23] MEDS ORDERED: MENTHOL/PHENOL 1 EACH UD MM PRN (14:30)
[2021-07-23] MEDS: THIAMINE HCL 100 MG TABLET (FP) PO SCH (21:16)
[2021-07-23] MEDS: METOPROLOL TARTRATE 50 MG TABLET (FP) PO SCH (21:17)
[2021-07-23] MEDS: MELATONIN 5 MG TABLETS PO SCH (21:18)
[2021-07-23] MEDS: ATORVASTATIN CA 40 MG TABLET (FP) PO SCH (21:18)
[2021-07-23] MEDS: MAG HYDROX/AL HYDROX/SIMETH 30 ML UNIT-DOSE CUP PO PRN (21:48)
[2021-07-24] MEDS: CLOPIDOGREL BISULFATE 75 MG TABLET (FP) PO SCH (09:40)
[2021-07-24] MEDS: METOPROLOL TARTRATE 50 MG TABLET (FP) PO SCH ×2 (09:40→22:05)
[2021-07-24] MEDS: ASPIRIN 81 MG CHEWABLE TABLETS PO SCH (09:40)
[2021-07-24] MEDS: PRENATAL VITAMINS W/ FOLIC ACID TABLET (FP) PO SCH (09:41)
[2021-07-24] MEDS: NICOTINE 21 MG/24 HOURS TOPICAL PATCH TD SCH (09:41)
[2021-07-24] MEDS: LISINOPRIL 5 MG TABLET PO SCH (09:41)
[2021-07-24] MEDS: MAG HYDROX/AL HYDROX/SIMETH 30 ML UNIT-DOSE CUP PO PRN ×2 (15:34→22:06)
[2021-07-24] MEDS: MELATONIN 5 MG TABLETS PO SCH (22:05)
[2021-07-24] MEDS: THIAMINE HCL 100 MG TABLET (FP) PO SCH (22:05)
[2021-07-24] MEDS: ATORVASTATIN CA 40 MG TABLET (FP) PO SCH (22:05)
[2021-07-25] MEDS: ACETAMINOPHEN 325 MG TABLET (FP) PO PRN (07:01)
[2021-07-25] MEDS: MAG HYDROX/AL HYDROX/SIMETH 30 ML UNIT-DOSE CUP PO PRN (07:02)
[2021-07-25] MEDS: PRENATAL VITAMINS W/ FOLIC ACID TABLET (FP) PO SCH (09:52)
[2021-07-25] MEDS: LISINOPRIL 5 MG TABLET PO SCH (09:53)
[2021-07-25] MEDS: METOPROLOL TARTRATE 50 MG TABLET (FP) PO SCH ×2 (09:53→21:06)
[2021-07-25] MEDS: NICOTINE 21 MG/24 HOURS TOPICAL PATCH TD SCH (09:53)
[2021-07-25] MEDS: ASPIRIN 81 MG CHEWABLE TABLETS PO SCH (09:53)
[2021-07-25] MEDS: CLOPIDOGREL BISULFATE 75 MG TABLET (FP) PO SCH (09:53)
[2021-07-25] MEDS: ATORVASTATIN CA 40 MG TABLET (FP) PO SCH (21:06)
[2021-07-25] MEDS: THIAMINE HCL 100 MG TABLET (FP) PO SCH (21:06)
[2021-07-25] MEDS: MELATONIN 5 MG TABLETS PO SCH (21:06)
[2021-07-26] MEDS: ACETAMINOPHEN 325 MG TABLET (FP) PO PRN (07:07)
[2021-07-26] MEDS: PRENATAL VITAMINS W/ FOLIC ACID TABLET (FP) PO SCH (10:10)
[2021-07-26] MEDS: METOPROLOL TARTRATE 50 MG TABLET (FP) PO SCH ×2 (10:10→21:54)
[2021-07-26] MEDS: CLOPIDOGREL BISULFATE 75 MG TABLET (FP) PO SCH (10:10)
[2021-07-26] MEDS: LISINOPRIL 5 MG TABLET PO SCH (10:11)
[2021-07-26] MEDS: ASPIRIN 81 MG CHEWABLE TABLETS PO SCH (10:12)
[2021-07-26] MEDS: NICOTINE 21 MG/24 HOURS TOPICAL PATCH TD SCH (10:12)
[2021-07-26] MEDS: ATORVASTATIN CA 40 MG TABLET (FP) PO SCH (21:54)
[2021-07-26] MEDS: MELATONIN 5 MG TABLETS PO SCH (21:55)
[2021-07-26] MEDS: TOLNAFTATE 1% CREAM 15 GM TUBE TP SCH (21:56)
[2021-07-26] MEDS: THIAMINE HCL 100 MG TABLET (FP) PO SCH (22:02)
[2021-07-27 06:09] LABS: SARS-CoV-2 NAA Not Detected (Not Detected)
[2021-07-27] MEDS: ACETAMINOPHEN 325 MG TABLET (FP) PO PRN (06:13)
[2021-07-27] MEDS: CLOPIDOGREL BISULFATE 75 MG TABLET (FP) PO SCH (10:08)
[2021-07-27] MEDS: METOPROLOL TARTRATE 50 MG TABLET (FP) PO SCH ×2 (10:08→23:15)
[2021-07-27] MEDS: ASPIRIN 81 MG CHEWABLE TABLETS PO SCH (10:08)
[2021-07-27] MEDS: PRENATAL VITAMINS W/ FOLIC ACID TABLET (FP) PO SCH (10:08)
[2021-07-27] MEDS: LISINOPRIL 5 MG TABLET PO SCH (10:08)
[2021-07-27] MEDS: NICOTINE 21 MG/24 HOURS TOPICAL PATCH TD SCH (10:08)
[2021-07-27] MEDS: TOLNAFTATE 1% CREAM 15 GM TUBE TP SCH ×2 (10:10→23:15)
[2021-07-27] MEDS ORDERED: NICOTINE 14 MG/24 HOURS TOPICAL PATCH TD SCH (14:31)
[2021-07-27 15:26] VITALS: BP 134/72; PULSE 68; TEMP 96.4
[2021-07-27 19:08] LABS: HIV INTERPRETATION NEGATIVE (NEGATIVE)
[2021-07-27] MEDS: ATORVASTATIN CA 40 MG TABLET (FP) PO SCH (23:14)
[2021-07-27] MEDS: THIAMINE HCL 100 MG TABLET (FP) PO SCH (23:15)
[2021-07-27] MEDS: MELATONIN 5 MG TABLETS PO SCH (23:15)
== END 2021-07-27 23:18 | disposition short-term general hospital (02) | DRG 774 ==
LOC: YASAS 11:18 → Y3W 11:20
PROVIDERS: ADMIT Allergy & Immunology; ATTEND Allergy & Immunology
PROC: HZ2ZZZZ Detoxification Services for Substance Abuse Treatment (ICD-10-PCS; principal; 2021-07-23)
DX: F10.20 Alcohol dependence, uncomplicated (principal); F14.20 Cocaine dependence, uncomplicated; F12.20 Cannabis dependence, uncomplicated; F17.210 Nicotine dependence, cigarettes, uncomplicated; I10 Essential (primary) hypertension; I25.2 Old myocardial infarction; R00.2 Palpitations; B35.3 Tinea pedis; Z91.011 Allergy to milk products
CPT/HCPCS: 36415; 71046-TC-FY; 82310; 87389; 93005; 93010; C9803-CS; U0003; U0005

== ENCOUNTER 2021-07-27 16:28 | Observation (INO) | payer OTHER ==
[2021-07-27 17:02] VITALS: BMI 22.8
[2021-07-27 18:17] LABS: EOS % 3.3 % (0-4.5); HEMATOCRIT 37.2 % (35.4-49); LYMPH % 24.9 % (8-40); MCH 35.5 pg (25.7-33.7); MCHC 34.9 g/dl (32.0-35.9); MEAN CELL VOLUME 101.7 fl (80-96); MEAN PLT VOLUME 8.5 fl (7.5-11.1); MONO % 11.6 % (3.8-10.2); NEUT % 59.2 % (42.8-82.8); PLATELET COUNT 219 10^3/uL (134-434); RBC 3.65 M/mm3 (4.00-5.60); RDW 13.1 % (11.9-15.9); WHITE BLOOD COUNT 6.3 K/mm3 (4.0-10.0)
[2021-07-27 18:22] LABS: INR 1.07 (0.83-1.09); PROTHROMBIN TIME (PATIENT) 12.3 SEC (9.7-13.0)
[2021-07-27 18:24] LABS: ACTIVATED PTT 30.9 SECONDS (25.2-36.5)
[2021-07-27 18:39] LABS: BLOOD UREA NITROGEN 17.5 mg/dL (7-18); CALCIUM 8.7 mg/dL (8.5-10.1)
[2021-07-27 18:40] LABS: ALBUMIN 3.8 g/dl (3.4-5.0)
[2021-07-27 18:43] LABS: CREATININE 0.8 mg/dL (0.55-1.3)
[2021-07-27 18:44] LABS: BILIRUBIN,TOTAL 0.4 mg/dL (0.2-1); TOT PROT 7.1 g/dl (6.4-8.2)
[2021-07-27] MEDS ORDERED: ASPIRIN 325 MG ENTERIC COATED TABLET (FP) ONE (22:31)
[2021-07-27] MEDS ORDERED: ASPIRIN 325 MG ENTERIC COATED TABLET (FP) PO ONE (22:36)
[2021-07-27] MEDS ORDERED: LORazepam 2 MG/ML SDV VIAL IVPUSH PRN (23:28)
[2021-07-28] MEDS ORDERED: NICOTINE 14 MG/24 HOURS TOPICAL PATCH TD PRN
[2021-07-28] MEDS: THIAMINE HCL 100 MG TABLET (FP) PO SCH (09:20)
[2021-07-28] MEDS: FOLIC ACID 1 MG TABLET (FP) PO SCH (09:20)
[2021-07-28] MEDS: ASPIRIN 81 MG CHEWABLE TABLETS PO SCH (09:20)
[2021-07-28] MEDS: METOPROLOL TARTRATE 50 MG TABLET (FP) PO SCH ×2 (09:20→21:30)
[2021-07-28] MEDS: LISINOPRIL 5 MG TABLET PO SCH (09:20)
[2021-07-28] MEDS: CLOPIDOGREL BISULFATE 75 MG TABLET (FP) PO SCH (09:20)
[2021-07-28] MEDS: NICOTINE 21 MG/24 HOURS TOPICAL PATCH TD SCH (09:21)
[2021-07-28] MEDS: ENOXAPARIN NA (PORCINE) 40 MG/0.4 ML DISP.SYRIN SQ SCH (09:21)
[2021-07-28] MEDS ORDERED: ASPIRIN 325 MG ENTERIC COATED TABLET (FP) PO SCH (10:00)
[2021-07-28] MEDS ORDERED: MELATONIN 5 MG TABLETS PO PRN (17:47)
[2021-07-28] MEDS ORDERED: ACETAMINOPHEN 325 MG TABLET (FP) PO PRN (17:47)
[2021-07-28] MEDS ORDERED: ATORVASTATIN CA 40 MG TABLET (FP) PO SCH (22:00)
[2021-07-28] MEDS ORDERED: MELATONIN 5 MG TABLETS PO SCH (22:00)
[2021-07-28] MEDS ORDERED: ASPIRIN 325 MG ENTERIC COATED TABLET (FP) PO ONE (22:31)
[2021-07-29] MEDS: THIAMINE HCL 100 MG TABLET (FP) PO SCH ×2 (08:08→09:32)
[2021-07-29] MEDS: FOLIC ACID 1 MG TABLET (FP) PO SCH ×2 (08:08→09:31)
[2021-07-29] MEDS: ASPIRIN 81 MG CHEWABLE TABLETS PO SCH ×2 (08:08→09:31)
[2021-07-29] MEDS: CLOPIDOGREL BISULFATE 75 MG TABLET (FP) PO SCH ×2 (08:08→09:32)
[2021-07-29] MEDS: LISINOPRIL 5 MG TABLET PO SCH ×2 (08:08→09:32)
[2021-07-29] MEDS: NICOTINE 21 MG/24 HOURS TOPICAL PATCH TD SCH ×2 (08:09→09:32)
[2021-07-29] MEDS: ENOXAPARIN NA (PORCINE) 40 MG/0.4 ML DISP.SYRIN SQ SCH ×2 (08:09→09:32)
[2021-07-29] MEDS: METOPROLOL TARTRATE 50 MG TABLET (FP) PO SCH (13:07)
[2021-07-29 15:36] VITALS: BP 119/70; PULSE 68; TEMP 98
[2021-07-29] MEDS ORDERED: METOPROLOL TARTRATE 50 MG TABLET (FP) PO SCH (22:00)
== END 2021-07-29 18:06 | disposition other institution (70) ==
LOC: JER 16:28 → JERBED 21:55 → J4W 07-28 02:22
PROVIDERS: ADMIT Internal Medicine; ATTEND Nurse Practitioner Family
DX: R00.2 Palpitations (principal); R74.8 Abnormal levels of other serum enzymes; I10 Essential (primary) hypertension; I25.10 Atherosclerotic heart disease of native coronary artery without angina pectoris; I25.2 Old myocardial infarction; E78.5 Hyperlipidemia, unspecified; F10.230 Alcohol dependence with withdrawal, uncomplicated; F14.20 Cocaine dependence, uncomplicated; F12.20 Cannabis dependence, uncomplicated; F17.210 Nicotine dependence, cigarettes, uncomplicated; N17.9 Acute kidney failure, unspecified; R76.11 Nonspecific reaction to tuberculin skin test without active tuberculosis; H72.92 Unspecified perforation of tympanic membrane, left ear; F19.24 Other psychoactive substance dependence with psychoactive substance-induced mood disorder; Z86.79 Personal history of other diseases of the circulatory system; Z91.011 Allergy to milk products
CPT/HCPCS: 36415; 71046-TC-FY; 78452-TC; 80053; 82550; 84443; 84484; 85025; 85610; 85730; 93005; 93010; 93017; 93306-TC; 99285-25; A9502; C9803-CS; G0378; U0003; U0005

== ENCOUNTER 2021-07-29 17:33 | Inpatient (IN) | payer OTHER ==
[2021-07-29 18:49] VITALS: BMI 22.3
[2021-07-29] MEDS ORDERED: NICOTINE 10 MG CARTRIDGE (INHALER) IH PRN (19:49)
[2021-07-29] MEDS ORDERED: MAGNESIUM HYDROX 2400MG/30ML ORAL SUSPENSION 30 ML CUP PO PRN (19:49)
[2021-07-29] MEDS ORDERED: MAGNESIUM CITRATE 300 ML BOTTLE PO PRN (19:49)
[2021-07-29] MEDS ORDERED: guaiFENesin 200 MG/10 ML 10 ML UNIT-DOSE CUPS PO PRN (19:49)
[2021-07-29] MEDS ORDERED: P-EPHED 60MG/TRIPROLIDI 2.5MG TABLET PO PRN (19:49)
[2021-07-29] MEDS ORDERED: MAG HYDROX/AL HYDROX/SIMETH 30 ML UNIT-DOSE CUP PO PRN (19:49)
[2021-07-29] MEDS ORDERED: IBUPROFEN 400 MG TABLET (FP) PO PRN (19:49)
[2021-07-29] MEDS ORDERED: LOPERAMIDE HCL 2 MG CAPSULE PO PRN (19:49)
[2021-07-29] MEDS: THIAMINE HCL 100 MG TABLET (FP) PO SCH (23:02)
[2021-07-29] MEDS: hydrOXYzine PAMOATE 25 MG CAPSULE (FP) PO SCH (23:02)
[2021-07-29] MEDS: ATORVASTATIN CA 40 MG TABLET (FP) PO SCH (23:02)
[2021-07-29] MEDS: MELATONIN 5 MG TABLETS PO SCH (23:02)
[2021-07-30] MEDS: hydrOXYzine PAMOATE 25 MG CAPSULE (FP) PO SCH ×5 (06:31→21:19)
[2021-07-30] MEDS ORDERED: NICOTINE 7 MG/24 HOURS TOPICAL PATCH TD SCH (10:00)
[2021-07-30] MEDS: LISINOPRIL 5 MG TABLET PO SCH (10:45)
[2021-07-30] MEDS: CLOPIDOGREL BISULFATE 75 MG TABLET (FP) PO SCH (10:46)
[2021-07-30] MEDS: THIAMINE HCL 100 MG TABLET (FP) PO SCH ×2 (10:46→21:19)
[2021-07-30] MEDS: ASPIRIN 81 MG CHEWABLE TABLETS PO SCH (10:46)
[2021-07-30] MEDS: PRENATAL VITAMINS W/ FOLIC ACID TABLET (FP) PO SCH (10:49)
[2021-07-30] MEDS: FOLIC ACID 1 MG TABLET (FP) PO SCH (12:01)
[2021-07-30] MEDS: ATORVASTATIN CA 40 MG TABLET (FP) PO SCH (21:19)
[2021-07-30] MEDS: MELATONIN 5 MG TABLETS PO SCH (21:19)
[2021-07-31] MEDS: hydrOXYzine PAMOATE 25 MG CAPSULE (FP) PO SCH ×5 (06:40→21:29)
[2021-07-31] MEDS: NICOTINE 21 MG/24 HOURS TOPICAL PATCH TD SCH (09:50)
[2021-07-31] MEDS: FOLIC ACID 1 MG TABLET (FP) PO SCH (09:50)
[2021-07-31] MEDS: THIAMINE HCL 100 MG TABLET (FP) PO SCH ×2 (09:50→21:28)
[2021-07-31] MEDS: ASPIRIN 81 MG CHEWABLE TABLETS PO SCH (09:50)
[2021-07-31] MEDS: CLOPIDOGREL BISULFATE 75 MG TABLET (FP) PO SCH (09:50)
[2021-07-31] MEDS: PRENATAL VITAMINS W/ FOLIC ACID TABLET (FP) PO SCH (09:50)
[2021-07-31] MEDS: LISINOPRIL 5 MG TABLET PO SCH (09:51)
[2021-07-31] MEDS: ATORVASTATIN CA 40 MG TABLET (FP) PO SCH (21:28)
[2021-07-31] MEDS: MELATONIN 5 MG TABLETS PO SCH (21:28)
[2021-07-31] MEDS: TOLNAFTATE 1% CREAM 15 GM TUBE TP SCH (21:29)
[2021-08-01] MEDS: hydrOXYzine PAMOATE 25 MG CAPSULE (FP) PO SCH ×5 (06:27→21:15)
[2021-08-01] MEDS: NICOTINE 21 MG/24 HOURS TOPICAL PATCH TD SCH (09:42)
[2021-08-01] MEDS: PRENATAL VITAMINS W/ FOLIC ACID TABLET (FP) PO SCH (09:42)
[2021-08-01] MEDS: LISINOPRIL 5 MG TABLET PO SCH (09:43)
[2021-08-01] MEDS: ASPIRIN 81 MG CHEWABLE TABLETS PO SCH (09:43)
[2021-08-01] MEDS: TOLNAFTATE 1% CREAM 15 GM TUBE TP SCH ×2 (09:43→21:15)
[2021-08-01] MEDS: FOLIC ACID 1 MG TABLET (FP) PO SCH (09:43)
[2021-08-01] MEDS: THIAMINE HCL 100 MG TABLET (FP) PO SCH ×2 (09:43→21:14)
[2021-08-01] MEDS: CLOPIDOGREL BISULFATE 75 MG TABLET (FP) PO SCH (09:43)
[2021-08-01] MEDS: ACETAMINOPHEN 325 MG TABLET (FP) PO PRN (09:44)
[2021-08-01] MEDS: MELATONIN 5 MG TABLETS PO SCH (21:14)
[2021-08-01] MEDS: ATORVASTATIN CA 40 MG TABLET (FP) PO SCH (21:15)
[2021-08-02] MEDS: hydrOXYzine PAMOATE 25 MG CAPSULE (FP) PO SCH (05:50)
[2021-08-02] MEDS: CLOPIDOGREL BISULFATE 75 MG TABLET (FP) PO SCH (10:07)
[2021-08-02] MEDS: ASPIRIN 81 MG CHEWABLE TABLETS PO SCH (10:07)
[2021-08-02] MEDS: LISINOPRIL 5 MG TABLET PO SCH (10:07)
[2021-08-02] MEDS: FOLIC ACID 1 MG TABLET (FP) PO SCH (10:07)
[2021-08-02] MEDS: PRENATAL VITAMINS W/ FOLIC ACID TABLET (FP) PO SCH (10:07)
[2021-08-02] MEDS: NICOTINE 21 MG/24 HOURS TOPICAL PATCH TD SCH (10:08)
[2021-08-02] MEDS: THIAMINE HCL 100 MG TABLET (FP) PO SCH ×2 (10:08→21:07)
[2021-08-02] MEDS: ACETAMINOPHEN 325 MG TABLET (FP) PO PRN (10:09)
[2021-08-02] MEDS: TOLNAFTATE 1% CREAM 15 GM TUBE TP SCH ×2 (10:09→21:08)
[2021-08-02] MEDS: ATORVASTATIN CA 40 MG TABLET (FP) PO SCH (21:07)
[2021-08-02] MEDS: MELATONIN 5 MG TABLETS PO SCH (21:08)
[2021-08-03 00:06] LABS: SARS-CoV-2 NAA Not Detected (Not Detected)
[2021-08-03] MEDS: ACETAMINOPHEN 325 MG TABLET (FP) PO PRN ×4 (04:06→21:28)
[2021-08-03] MEDS: PRENATAL VITAMINS W/ FOLIC ACID TABLET (FP) PO SCH (09:53)
[2021-08-03] MEDS: FOLIC ACID 1 MG TABLET (FP) PO SCH (09:53)
[2021-08-03] MEDS: ASPIRIN 81 MG CHEWABLE TABLETS PO SCH (09:54)
[2021-08-03] MEDS: LISINOPRIL 5 MG TABLET PO SCH (09:54)
[2021-08-03] MEDS: THIAMINE HCL 100 MG TABLET (FP) PO SCH ×2 (09:54→21:26)
[2021-08-03] MEDS: CLOPIDOGREL BISULFATE 75 MG TABLET (FP) PO SCH (09:54)
[2021-08-03] MEDS: NICOTINE 21 MG/24 HOURS TOPICAL PATCH TD SCH (09:56)
[2021-08-03] MEDS: TOLNAFTATE 1% CREAM 15 GM TUBE TP SCH ×2 (09:56→21:27)
[2021-08-03] MEDS: MELATONIN 5 MG TABLETS PO SCH (21:26)
[2021-08-03] MEDS: ATORVASTATIN CA 40 MG TABLET (FP) PO SCH (21:26)
[2021-08-04] MEDS: PRENATAL VITAMINS W/ FOLIC ACID TABLET (FP) PO SCH (09:30)
[2021-08-04] MEDS: CLOPIDOGREL BISULFATE 75 MG TABLET (FP) PO SCH (09:30)
[2021-08-04] MEDS: FOLIC ACID 1 MG TABLET (FP) PO SCH (09:31)
[2021-08-04] MEDS: LISINOPRIL 5 MG TABLET PO SCH (09:31)
[2021-08-04] MEDS: THIAMINE HCL 100 MG TABLET (FP) PO SCH ×2 (09:31→20:59)
[2021-08-04] MEDS: NICOTINE 21 MG/24 HOURS TOPICAL PATCH TD SCH (09:31)
[2021-08-04] MEDS: ASPIRIN 81 MG CHEWABLE TABLETS PO SCH (09:31)
[2021-08-04] MEDS: TOLNAFTATE 1% CREAM 15 GM TUBE TP SCH ×2 (09:33→20:59)
[2021-08-04] MEDS: ATORVASTATIN CA 40 MG TABLET (FP) PO SCH (20:59)
[2021-08-04] MEDS: MELATONIN 5 MG TABLETS PO SCH (20:59)
[2021-08-05] MEDS: ACETAMINOPHEN 325 MG TABLET (FP) PO PRN (06:30)
[2021-08-05] MEDS: LISINOPRIL 5 MG TABLET PO SCH (09:55)
[2021-08-05] MEDS: FOLIC ACID 1 MG TABLET (FP) PO SCH (09:55)
[2021-08-05] MEDS: ASPIRIN 81 MG CHEWABLE TABLETS PO SCH (09:55)
[2021-08-05] MEDS: NICOTINE 21 MG/24 HOURS TOPICAL PATCH TD SCH (09:55)
[2021-08-05] MEDS: CLOPIDOGREL BISULFATE 75 MG TABLET (FP) PO SCH (09:55)
[2021-08-05] MEDS: PRENATAL VITAMINS W/ FOLIC ACID TABLET (FP) PO SCH (09:56)
[2021-08-05] MEDS: TOLNAFTATE 1% CREAM 15 GM TUBE TP SCH ×2 (09:57→21:23)
[2021-08-05] MEDS: THIAMINE HCL 100 MG TABLET (FP) PO SCH ×2 (09:57→21:22)
[2021-08-05] MEDS: ATORVASTATIN CA 40 MG TABLET (FP) PO SCH (21:22)
[2021-08-05] MEDS: MELATONIN 5 MG TABLETS PO SCH (21:22)
[2021-08-06] MEDS: THIAMINE HCL 100 MG TABLET (FP) PO SCH ×2 (09:43→21:04)
[2021-08-06] MEDS: LISINOPRIL 5 MG TABLET PO SCH (09:43)
[2021-08-06] MEDS: NICOTINE 21 MG/24 HOURS TOPICAL PATCH TD SCH (09:45)
[2021-08-06] MEDS: PRENATAL VITAMINS W/ FOLIC ACID TABLET (FP) PO SCH (09:45)
[2021-08-06] MEDS: TOLNAFTATE 1% CREAM 15 GM TUBE TP SCH ×2 (09:45→21:05)
[2021-08-06] MEDS: FOLIC ACID 1 MG TABLET (FP) PO SCH (09:45)
[2021-08-06] MEDS: CLOPIDOGREL BISULFATE 75 MG TABLET (FP) PO SCH (09:45)
[2021-08-06] MEDS: ASPIRIN 81 MG CHEWABLE TABLETS PO SCH (09:45)
[2021-08-06] MEDS: ACETAMINOPHEN 325 MG TABLET (FP) PO PRN (10:43)
[2021-08-06] MEDS: MELATONIN 5 MG TABLETS PO SCH (21:04)
[2021-08-06] MEDS: ATORVASTATIN CA 40 MG TABLET (FP) PO SCH (21:04)
[2021-08-07] MEDS: ACETAMINOPHEN 325 MG TABLET (FP) PO PRN (06:40)
[2021-08-07] MEDS: ASPIRIN 81 MG CHEWABLE TABLETS PO SCH (10:29)
[2021-08-07] MEDS: NICOTINE 21 MG/24 HOURS TOPICAL PATCH TD SCH (10:29)
[2021-08-07] MEDS: CLOPIDOGREL BISULFATE 75 MG TABLET (FP) PO SCH (10:29)
[2021-08-07] MEDS: PRENATAL VITAMINS W/ FOLIC ACID TABLET (FP) PO SCH (10:29)
[2021-08-07] MEDS: LISINOPRIL 5 MG TABLET PO SCH (10:29)
[2021-08-07] MEDS: FOLIC ACID 1 MG TABLET (FP) PO SCH (10:29)
[2021-08-07] MEDS: THIAMINE HCL 100 MG TABLET (FP) PO SCH ×2 (10:45→21:56)
[2021-08-07] MEDS: TOLNAFTATE 1% CREAM 15 GM TUBE TP SCH ×2 (10:45→21:56)
[2021-08-07] MEDS: ATORVASTATIN CA 40 MG TABLET (FP) PO SCH (21:55)
[2021-08-07] MEDS: MELATONIN 5 MG TABLETS PO SCH (21:56)
[2021-08-08] MEDS: LISINOPRIL 5 MG TABLET PO SCH (09:47)
[2021-08-08] MEDS: ASPIRIN 81 MG CHEWABLE TABLETS PO SCH (09:48)
[2021-08-08] MEDS: FOLIC ACID 1 MG TABLET (FP) PO SCH (09:48)
[2021-08-08] MEDS: CLOPIDOGREL BISULFATE 75 MG TABLET (FP) PO SCH (09:48)
[2021-08-08] MEDS: NICOTINE 21 MG/24 HOURS TOPICAL PATCH TD SCH (09:48)
[2021-08-08] MEDS: PRENATAL VITAMINS W/ FOLIC ACID TABLET (FP) PO SCH (09:48)
[2021-08-08] MEDS: THIAMINE HCL 100 MG TABLET (FP) PO SCH ×2 (09:49→21:02)
[2021-08-08] MEDS: TOLNAFTATE 1% CREAM 15 GM TUBE TP SCH ×2 (09:51→21:03)
[2021-08-08] MEDS ORDERED: cloNIDine HCL 0.1 MG TABLET PO ONE (14:00)
[2021-08-08] MEDS: ACETAMINOPHEN 325 MG TABLET (FP) PO PRN (15:13)
[2021-08-08] MEDS: ATORVASTATIN CA 40 MG TABLET (FP) PO SCH (21:01)
[2021-08-08] MEDS: MELATONIN 5 MG TABLETS PO SCH (21:01)
[2021-08-09] MEDS: ACETAMINOPHEN 325 MG TABLET (FP) PO PRN (06:28)
[2021-08-09] MEDS: NICOTINE 21 MG/24 HOURS TOPICAL PATCH TD SCH (09:54)
[2021-08-09] MEDS: ASPIRIN 81 MG CHEWABLE TABLETS PO SCH (09:54)
[2021-08-09] MEDS: FOLIC ACID 1 MG TABLET (FP) PO SCH (09:54)
[2021-08-09] MEDS: PRENATAL VITAMINS W/ FOLIC ACID TABLET (FP) PO SCH (09:55)
[2021-08-09] MEDS: LISINOPRIL 5 MG TABLET PO SCH (09:55)
[2021-08-09] MEDS: CLOPIDOGREL BISULFATE 75 MG TABLET (FP) PO SCH (09:55)
[2021-08-09] MEDS: TOLNAFTATE 1% CREAM 15 GM TUBE TP SCH ×2 (09:57→21:09)
[2021-08-09] MEDS: THIAMINE HCL 100 MG TABLET (FP) PO SCH ×2 (10:39→21:08)
[2021-08-09] MEDS: ATORVASTATIN CA 40 MG TABLET (FP) PO SCH (21:08)
[2021-08-09] MEDS: MELATONIN 5 MG TABLETS PO SCH (21:08)
[2021-08-10] MEDS: CLOPIDOGREL BISULFATE 75 MG TABLET (FP) PO SCH (09:31)
[2021-08-10] MEDS: ASPIRIN 81 MG CHEWABLE TABLETS PO SCH (09:31)
[2021-08-10] MEDS: FOLIC ACID 1 MG TABLET (FP) PO SCH (09:31)
[2021-08-10] MEDS: PRENATAL VITAMINS W/ FOLIC ACID TABLET (FP) PO SCH (09:31)
[2021-08-10] MEDS: NICOTINE 21 MG/24 HOURS TOPICAL PATCH TD SCH (09:31)
[2021-08-10] MEDS: LISINOPRIL 5 MG TABLET PO SCH (09:32)
[2021-08-10] MEDS: TOLNAFTATE 1% CREAM 15 GM TUBE TP SCH ×2 (09:32→21:31)
[2021-08-10] MEDS: THIAMINE HCL 100 MG TABLET (FP) PO SCH ×2 (09:33→21:31)
[2021-08-10] MEDS: ACETAMINOPHEN 325 MG TABLET (FP) PO PRN (09:34)
[2021-08-10] MEDS: ATORVASTATIN CA 40 MG TABLET (FP) PO SCH (21:31)
[2021-08-10] MEDS: MELATONIN 5 MG TABLETS PO SCH (21:31)
[2021-08-11] MEDS: PRENATAL VITAMINS W/ FOLIC ACID TABLET (FP) PO SCH (09:46)
[2021-08-11] MEDS: ASPIRIN 81 MG CHEWABLE TABLETS PO SCH (09:46)
[2021-08-11] MEDS: FOLIC ACID 1 MG TABLET (FP) PO SCH (09:46)
[2021-08-11] MEDS: LISINOPRIL 5 MG TABLET PO SCH (09:46)
[2021-08-11] MEDS: CLOPIDOGREL BISULFATE 75 MG TABLET (FP) PO SCH (09:46)
[2021-08-11] MEDS: NICOTINE 21 MG/24 HOURS TOPICAL PATCH TD SCH (09:46)
[2021-08-11] MEDS: TOLNAFTATE 1% CREAM 15 GM TUBE TP SCH ×2 (09:48→21:03)
[2021-08-11] MEDS ORDERED: METHOCARBAMOL 500 MG TABLET PO PRN (11:12)
[2021-08-11] MEDS ORDERED: MINERAL OIL/PETROLAT/WATER TOPICAL CREAM 113 GM JAR TP PRN (12:44)
[2021-08-11] MEDS: BACITRACIN 0.9 GM PACKET TP SCH ×2 (14:02→21:02)
[2021-08-11] MEDS: THIAMINE HCL 100 MG TABLET (FP) PO SCH (21:02)
[2021-08-11] MEDS: ATORVASTATIN CA 40 MG TABLET (FP) PO SCH (21:02)
[2021-08-11] MEDS: MELATONIN 5 MG TABLETS PO SCH (21:02)
[2021-08-12 07:36] VITALS: TEMP 98.1
[2021-08-12] MEDS: FOLIC ACID 1 MG TABLET (FP) PO SCH (10:25)
[2021-08-12] MEDS: PRENATAL VITAMINS W/ FOLIC ACID TABLET (FP) PO SCH (10:25)
[2021-08-12] MEDS: CLOPIDOGREL BISULFATE 75 MG TABLET (FP) PO SCH (10:25)
[2021-08-12] MEDS: ASPIRIN 81 MG CHEWABLE TABLETS PO SCH (10:25)
[2021-08-12] MEDS: LISINOPRIL 5 MG TABLET PO SCH (10:25)
[2021-08-12] MEDS: NICOTINE 21 MG/24 HOURS TOPICAL PATCH TD SCH (10:25)
[2021-08-12] MEDS: TOLNAFTATE 1% CREAM 15 GM TUBE TP SCH ×2 (10:27→21:39)
[2021-08-12] MEDS: BACITRACIN 0.9 GM PACKET TP SCH ×2 (10:27→21:38)
[2021-08-12 11:17] VITALS: PULSE 87
[2021-08-12 20:38] VITALS: BP 145/90
[2021-08-12] MEDS: MELATONIN 5 MG TABLETS PO SCH (21:38)
[2021-08-12] MEDS: ATORVASTATIN CA 40 MG TABLET (FP) PO SCH (21:38)
[2021-08-12] MEDS: THIAMINE HCL 100 MG TABLET (FP) PO SCH (21:38)
[2021-08-13] MEDS: PRENATAL VITAMINS W/ FOLIC ACID TABLET (FP) PO SCH (09:02)
[2021-08-13] MEDS: LISINOPRIL 5 MG TABLET PO SCH (09:02)
[2021-08-13] MEDS: FOLIC ACID 1 MG TABLET (FP) PO SCH (09:03)
[2021-08-13] MEDS: CLOPIDOGREL BISULFATE 75 MG TABLET (FP) PO SCH (09:03)
[2021-08-13] MEDS: NICOTINE 21 MG/24 HOURS TOPICAL PATCH TD SCH (09:03)
[2021-08-13] MEDS: ASPIRIN 81 MG CHEWABLE TABLETS PO SCH (09:03)
[2021-08-13] MEDS: TOLNAFTATE 1% CREAM 15 GM TUBE TP SCH (09:04)
[2021-08-13] MEDS: BACITRACIN 0.9 GM PACKET TP SCH (09:04)
[2021-08-13] MEDS ORDERED: LISINOPRIL 10 MG TABLET PO ONE (09:42)
== END 2021-08-13 09:38 | disposition home or self-care (01) | DRG 772 ==
LOC: YASAS 17:33 → Y3E 20:01 → Y3W 07-30 12:01
PROVIDERS: ADMIT Allergy & Immunology; ATTEND Allergy & Immunology
PROC: HZ42ZZZ Group Counseling for Substance Abuse Treatment, Cognitive-Behavioral (ICD-10-PCS; principal; 2021-07-29)
DX: F10.20 Alcohol dependence, uncomplicated (principal); F17.210 Nicotine dependence, cigarettes, uncomplicated; I10 Essential (primary) hypertension; I25.2 Old myocardial infarction; R07.9 Chest pain, unspecified; Z86.718 Personal history of other venous thrombosis and embolism; Z79.02 Long term (current) use of antithrombotics/antiplatelets
CPT/HCPCS: C9803-CS; J0735; U0003; U0005

== ENCOUNTER 2022-10-24 12:37 | Inpatient (IN) | payer OTHER ==
[2022-10-24 15:05] VITALS: BMI 22.1
[2022-10-24] MEDS ORDERED: chlordiazePOXIDE HCL 25 MG CAPSULE PO SCH (17:00)
[2022-10-24] MEDS ORDERED: guaiFENesin 600 MG TABLET.ER (FP) PO PRN (17:16)
[2022-10-24] MEDS ORDERED: MAGNESIUM HYDROX 2400MG/30ML ORAL SUSPENSION 30 ML CUP PO PRN (17:16)
[2022-10-24] MEDS ORDERED: BENZONATATE 200 MG CAPSULE PO PRN (17:16)
[2022-10-24] MEDS ORDERED: IBUPROFEN 600 MG TABLET (FP) PO PRN (17:16)
[2022-10-24] MEDS ORDERED: IBUPROFEN 400 MG TABLET (FP) PO PRN (17:16)
[2022-10-24] MEDS ORDERED: BISMUTH SUBSALICYLATE 524 MG/30 ML PO PRN (17:16)
[2022-10-24] MEDS ORDERED: DICYCLOMINE HCL 10 MG CAPSULE PO PRN (17:16)
[2022-10-24] MEDS ORDERED: POLYETHYLENE GLYCOL (HEALTHYLAX) 3350 17 GM PACKET PO PRN (17:16)
[2022-10-24] MEDS ORDERED: NICOTINE 10 MG CARTRIDGE (INHALER) IH PRN (17:16)
[2022-10-24] MEDS ORDERED: MAG HYDROX/AL HYDROX/SIMETH 30 ML UNIT-DOSE CUP PO PRN (17:16)
[2022-10-24] MEDS ORDERED: AMMONIUM LACTATE 12% LOTION 225 GM BOTTLE TP PRN (17:16)
[2022-10-24] MEDS ORDERED: NICOTINE POLACRILEX 2 MG GUM BUC PRN (17:16)
[2022-10-24] MEDS ORDERED: BENZOCAINE/MENTHOL (CHLORASEPTIC ) LOZENGE MM PRN (17:16)
[2022-10-24] MEDS ORDERED: LOPERAMIDE HCL 2 MG CAPSULE PO PRN (17:16)
[2022-10-24] MEDS ORDERED: ONDANSETRON *ODT* 4 MG TABLET SL PRN (17:16)
[2022-10-24] MEDS ORDERED: NALOXONE HCL 0.4 MG/ML VIAL IM PRN (17:16)
[2022-10-24] MEDS ORDERED: NALOXONE HCL (KLOXXADO) 8 MG SPRAY NS PRN (17:16)
[2022-10-24] MEDS ORDERED: ACETAMINOPHEN 325 MG TABLET (FP) PO PRN (17:16)
[2022-10-24] MEDS ORDERED: COLLOIDAL OATMEAL 1 BAR EACH TP PRN (17:16)
[2022-10-24] MEDS ORDERED: LISINOPRIL 5 MG TABLET PO SCH (17:30)
[2022-10-24] MEDS: ASPIRIN 81 MG CHEWABLE TABLETS PO SCH (18:15)
[2022-10-24] MEDS: NICOTINE 21 MG/24 HOURS TOPICAL PATCH TD SCH (18:16)
[2022-10-24] MEDS: CLOPIDOGREL BISULFATE 75 MG TABLET (FP) PO SCH (18:16)
[2022-10-24] MEDS: chlordiazePOXIDE HCL 25 MG CAPSULE PO SCH ×2 (18:19→22:14)
[2022-10-24] MEDS: THIAMINE HCL 100 MG TABLET (FP) PO SCH (22:13)
[2022-10-24] MEDS: ATORVASTATIN CA 40 MG TABLET (FP) PO SCH (22:16)
[2022-10-24] MEDS: MELATONIN 5 MG TABLETS PO SCH (22:52)
[2022-10-25] MEDS: chlordiazePOXIDE HCL 25 MG CAPSULE PO SCH ×5 (05:29→23:41)
[2022-10-25] MEDS ORDERED: THIAMINE HCL 100 MG TABLET (FP) PO SCH (10:00)
[2022-10-25] MEDS: CLOPIDOGREL BISULFATE 75 MG TABLET (FP) PO SCH (10:31)
[2022-10-25] MEDS: ASPIRIN 81 MG CHEWABLE TABLETS PO SCH (10:31)
[2022-10-25] MEDS: PRENATAL VITAMINS W/ FOLIC ACID TABLET (FP) PO SCH (10:31)
[2022-10-25] MEDS: NICOTINE 21 MG/24 HOURS TOPICAL PATCH TD SCH (10:31)
[2022-10-25] MEDS: LISINOPRIL 5 MG TABLET PO SCH (10:33)
[2022-10-25 11:24] LABS: HEMATOCRIT 34.5 % (35.4-49); HEMOGLOBIN 11.9 GM/dL (11.7-16.9); MCH 34.4 pg (25.7-33.7); MCHC 34.4 g/dl (32.0-35.9); MEAN CELL VOLUME 99.9 fl (80-96); MEAN PLT VOLUME 8.5 fl (7.5-11.1); PLATELET COUNT 209 10^3/uL (134-434); RBC 3.46 M/mm3 (4.00-5.60); RDW 12.7 % (11.9-15.9); WHITE BLOOD COUNT 5.9 K/mm3 (4.0-10.0)
[2022-10-25 11:45] LABS: POTASSIUM 4.3 mmol/L (3.5-5.1)
[2022-10-25 11:46] LABS: ALBUMIN 3.2 g/dl (3.4-5.0); BLOOD UREA NITROGEN 20.6 mg/dL (7-18); CALCIUM 8.3 mg/dL (8.5-10.1)
[2022-10-25 11:50] LABS: CREATININE 0.8 mg/dL (0.55-1.3)
[2022-10-25 11:51] LABS: BILIRUBIN,TOTAL 0.6 mg/dL (0.2-1)
[2022-10-25] MEDS: METHOCARBAMOL 500 MG TABLET PO PRN ×2 (16:51→17:45)
[2022-10-25] MEDS: THIAMINE HCL 100 MG TABLET (FP) PO SCH (23:42)
[2022-10-25] MEDS: MELATONIN 5 MG TABLETS PO SCH (23:42)
[2022-10-25] MEDS: ATORVASTATIN CA 40 MG TABLET (FP) PO SCH (23:42)
[2022-10-26] MEDS: chlordiazePOXIDE HCL 25 MG CAPSULE PO SCH ×4 (05:21→23:24)
[2022-10-26] MEDS: METHOCARBAMOL 500 MG TABLET PO PRN (05:23)
[2022-10-26] MEDS: LISINOPRIL 5 MG TABLET PO SCH (10:12)
[2022-10-26] MEDS: ASPIRIN 81 MG CHEWABLE TABLETS PO SCH (10:12)
[2022-10-26] MEDS: PRENATAL VITAMINS W/ FOLIC ACID TABLET (FP) PO SCH (10:12)
[2022-10-26] MEDS: CLOPIDOGREL BISULFATE 75 MG TABLET (FP) PO SCH (10:12)
[2022-10-26] MEDS: NICOTINE 21 MG/24 HOURS TOPICAL PATCH TD SCH (10:13)
[2022-10-26 13:03] VITALS: TEMP 97.8
[2022-10-26 17:14] VITALS: BP 148/87; PULSE 80; RESP 16
[2022-10-26] MEDS ORDERED: LORazepam 2 MG/ML SDV VIAL IM ONE (17:15)
[2022-10-26] MEDS ORDERED: SUVOREXANT 5 MG TABLET PO PRN (22:00)
[2022-10-26] MEDS ORDERED: SUVOREXANT 10 MG TABLET PO PRN (22:00)
[2022-10-26] MEDS: THIAMINE HCL 100 MG TABLET (FP) PO SCH (23:25)
[2022-10-26] MEDS: ATORVASTATIN CA 40 MG TABLET (FP) PO SCH (23:25)
[2022-10-27] MEDS ORDERED: chlordiazePOXIDE HCL 25 MG CAPSULE PO ONE (02:23)
[2022-10-27] MEDS ORDERED: LORazepam 2 MG TABLET PO PRN (02:25)
[2022-10-27] MEDS ORDERED: chlordiazePOXIDE HCL 10 MG CAPSULE PO SCH (05:00)
[2022-10-27] MEDS ORDERED: chlordiazePOXIDE HCL 25 MG CAPSULE PO SCH (06:00)
[2022-10-28] MEDS ORDERED: chlordiazePOXIDE HCL 10 MG CAPSULE PO SCH (05:00)
== END 2022-10-27 03:45 | disposition short-term general hospital (02) | DRG 775 ==
LOC: YASAS 12:37 → Y6N 17:09
PROVIDERS: ADMIT Allergy & Immunology; ATTEND Surgery
PROC: HZ2ZZZZ Detoxification Services for Substance Abuse Treatment (ICD-10-PCS; principal; 2022-10-24)
DX: F10.230 Alcohol dependence with withdrawal, uncomplicated (principal); F12.20 Cannabis dependence, uncomplicated; F17.210 Nicotine dependence, cigarettes, uncomplicated; F41.8 Other specified anxiety disorders; I25.10 Atherosclerotic heart disease of native coronary artery without angina pectoris; I10 Essential (primary) hypertension; I25.2 Old myocardial infarction; R79.89 Other specified abnormal findings of blood chemistry; R42 Dizziness and giddiness
CPT/HCPCS: 36415; 80053; 82962; 85027; 86780; 87635

== ENCOUNTER 2022-10-27 12:52 | Inpatient (IN) | payer OTHER ==
[2022-10-27 13:38] VITALS: BMI 20.9
[2022-10-27] MEDS ORDERED: guaiFENesin 600 MG TABLET.ER (FP) PO PRN (13:58)
[2022-10-27] MEDS ORDERED: NALOXONE HCL 0.4 MG/ML VIAL IM PRN (13:58)
[2022-10-27] MEDS ORDERED: NICOTINE POLACRILEX 2 MG GUM BUC PRN (13:58)
[2022-10-27] MEDS ORDERED: LOPERAMIDE HCL 2 MG CAPSULE PO PRN (13:58)
[2022-10-27] MEDS ORDERED: BENZONATATE 200 MG CAPSULE PO PRN (13:58)
[2022-10-27] MEDS ORDERED: chlordiazePOXIDE HCL 25 MG CAPSULE PO ONE (13:58)
[2022-10-27] MEDS ORDERED: MAG HYDROX/AL HYDROX/SIMETH 30 ML UNIT-DOSE CUP PO PRN (13:58)
[2022-10-27] MEDS ORDERED: AMMONIUM LACTATE 12% LOTION 225 GM BOTTLE TP PRN (13:58)
[2022-10-27] MEDS ORDERED: IBUPROFEN 600 MG TABLET (FP) PO PRN (13:58)
[2022-10-27] MEDS ORDERED: POLYETHYLENE GLYCOL (HEALTHYLAX) 3350 17 GM PACKET PO PRN (13:58)
[2022-10-27] MEDS ORDERED: ACETAMINOPHEN 325 MG TABLET (FP) PO PRN (13:58)
[2022-10-27] MEDS ORDERED: BENZOCAINE/MENTHOL (CHLORASEPTIC ) LOZENGE MM PRN (13:58)
[2022-10-27] MEDS ORDERED: IBUPROFEN 400 MG TABLET (FP) PO PRN (13:58)
[2022-10-27] MEDS ORDERED: COLLOIDAL OATMEAL 1 BAR EACH TP PRN (13:58)
[2022-10-27] MEDS ORDERED: DICYCLOMINE HCL 10 MG CAPSULE PO PRN (13:58)
[2022-10-27] MEDS ORDERED: NALOXONE HCL (KLOXXADO) 8 MG SPRAY NS PRN (13:58)
[2022-10-27] MEDS ORDERED: MAGNESIUM HYDROX 2400MG/30ML ORAL SUSPENSION 30 ML CUP PO PRN (13:58)
[2022-10-27] MEDS ORDERED: NICOTINE 10 MG CARTRIDGE (INHALER) IH PRN (13:58)
[2022-10-27] MEDS ORDERED: ONDANSETRON *ODT* 4 MG TABLET SL PRN (13:58)
[2022-10-27] MEDS ORDERED: BISMUTH SUBSALICYLATE 524 MG/30 ML PO PRN (13:58)
[2022-10-27] MEDS: NICOTINE 21 MG/24 HOURS TOPICAL PATCH TD SCH (15:27)
[2022-10-27] MEDS: LISINOPRIL 5 MG TABLET PO SCH (15:27)
[2022-10-27] MEDS ORDERED: NICOTINE 21 MG/24 HOURS TOPICAL PATCH ONE (15:34)
[2022-10-27] MEDS ORDERED: chlordiazePOXIDE HCL 25 MG CAPSULE ONE (15:34)
[2022-10-27] MEDS ORDERED: METOPROLOL TARTRATE 25 MG TABLET (FP) ONE (15:34)
[2022-10-27] MEDS ORDERED: ASPIRIN 81 MG CHEWABLE TABLETS ONE (15:35)
[2022-10-27] MEDS: ASPIRIN 81 MG CHEWABLE TABLETS PO SCH (15:43)
[2022-10-27] MEDS: chlordiazePOXIDE HCL 10 MG CAPSULE PO SCH ×2 (17:55→22:32)
[2022-10-27] MEDS: THIAMINE HCL 100 MG TABLET (FP) PO SCH (22:31)
[2022-10-27] MEDS: MELATONIN 5 MG TABLETS PO SCH (22:31)
[2022-10-27] MEDS: ATORVASTATIN CA 40 MG TABLET (FP) PO SCH (22:31)
[2022-10-28] MEDS: chlordiazePOXIDE HCL 10 MG CAPSULE PO SCH ×2 (06:00→17:40)
[2022-10-28] MEDS: PRENATAL VITAMINS W/ FOLIC ACID TABLET (FP) PO SCH (10:32)
[2022-10-28] MEDS: CLOPIDOGREL BISULFATE 75 MG TABLET (FP) PO SCH (10:32)
[2022-10-28] MEDS: ASPIRIN 81 MG CHEWABLE TABLETS PO SCH (10:32)
[2022-10-28] MEDS: LISINOPRIL 5 MG TABLET PO SCH (10:32)
[2022-10-28] MEDS: NICOTINE 21 MG/24 HOURS TOPICAL PATCH TD SCH (10:33)
[2022-10-28 11:27] LABS: HEMATOCRIT 37.1 % (35.4-49); HEMOGLOBIN 12.2 GM/dL (11.7-16.9); MCH 33.6 pg (25.7-33.7); MCHC 32.9 g/dl (32.0-35.9); MEAN CELL VOLUME 102.2 fl (80-96); MEAN PLT VOLUME 9.1 fl (7.5-11.1); PLATELET COUNT 231 10^3/uL (134-434); RBC 3.63 M/mm3 (4.00-5.60); RDW 12.5 % (11.9-15.9); WHITE BLOOD COUNT 4.9 K/mm3 (4.0-10.0)
[2022-10-28 11:31] LABS: POTASSIUM 4.4 mmol/L (3.5-5.1)
[2022-10-28 11:33] LABS: ALBUMIN 3.2 g/dl (3.4-5.0); BLOOD UREA NITROGEN 15.5 mg/dL (7-18); CALCIUM 8.7 mg/dL (8.5-10.1)
[2022-10-28 11:37] LABS: CREATININE 0.8 mg/dL (0.55-1.3)
[2022-10-28 11:38] LABS: BILIRUBIN,TOTAL 0.6 mg/dL (0.2-1); TOT PROT 6.2 g/dl (6.4-8.2)
[2022-10-28] MEDS: LACTULOSE 20 GM/30 ML UDC (FOR ORAL USE ONLY) PO SCH ×2 (14:40→22:18)
[2022-10-28] MEDS: THIAMINE HCL 100 MG TABLET (FP) PO SCH (22:18)
[2022-10-28] MEDS: MELATONIN 5 MG TABLETS PO SCH (22:18)
[2022-10-28] MEDS: ATORVASTATIN CA 40 MG TABLET (FP) PO SCH (22:18)
[2022-10-29] MEDS: CLOPIDOGREL BISULFATE 75 MG TABLET (FP) PO SCH ×2 (01:27→10:45)
[2022-10-29] MEDS ORDERED: chlordiazePOXIDE HCL 10 MG CAPSULE PO ONE (05:00)
[2022-10-29] MEDS: LACTULOSE 20 GM/30 ML UDC (FOR ORAL USE ONLY) PO SCH ×2 (05:13→13:10)
[2022-10-29 09:24] VITALS: BP 142/94; PULSE 86; RESP 17; TEMP 97.3
[2022-10-29] MEDS: LISINOPRIL 5 MG TABLET PO SCH (10:45)
[2022-10-29] MEDS: PRENATAL VITAMINS W/ FOLIC ACID TABLET (FP) PO SCH (10:45)
[2022-10-29] MEDS: ASPIRIN 81 MG CHEWABLE TABLETS PO SCH (10:45)
[2022-10-29] MEDS: NICOTINE 21 MG/24 HOURS TOPICAL PATCH TD SCH (10:46)
== END 2022-10-29 14:38 | disposition other institution (70) | DRG 775 ==
LOC: YASAS 12:52 → Y6N 14:27
PROVIDERS: ADMIT Allergy & Immunology; ATTEND Surgery
PROC: HZ2ZZZZ Detoxification Services for Substance Abuse Treatment (ICD-10-PCS; principal; 2022-10-27)
DX: F10.230 Alcohol dependence with withdrawal, uncomplicated (principal); F12.20 Cannabis dependence, uncomplicated; F17.210 Nicotine dependence, cigarettes, uncomplicated; F41.8 Other specified anxiety disorders; I25.10 Atherosclerotic heart disease of native coronary artery without angina pectoris; I10 Essential (primary) hypertension; I25.2 Old myocardial infarction; R79.89 Other specified abnormal findings of blood chemistry; Z91.011 Allergy to milk products
CPT/HCPCS: 36415; 70450-TC; 71045-TC-FY; 72125-TC; 80053; 80061; 80307; 82140; 82607; 82962; 83036; 83605; 83735; 84100; 84484; 85025; 85027; 85610; 85730; 86780; 87635; 93005; 93010; G0378

== ENCOUNTER 2022-10-29 14:30 | Inpatient (IN) | payer OTHER ==
[2022-10-29] MEDS ORDERED: MAGNESIUM HYDROX 2400MG/30ML ORAL SUSPENSION 30 ML CUP PO PRN (17:54)
[2022-10-29] MEDS ORDERED: LOPERAMIDE HCL 2 MG CAPSULE PO PRN (17:54)
[2022-10-29] MEDS ORDERED: BENZONATATE 200 MG CAPSULE PO PRN (17:54)
[2022-10-29] MEDS ORDERED: POLYETHYLENE GLYCOL (HEALTHYLAX) 3350 17 GM PACKET PO PRN (17:54)
[2022-10-29] MEDS ORDERED: BENZOCAINE/MENTHOL (CHLORASEPTIC ) LOZENGE MM PRN (17:54)
[2022-10-29] MEDS ORDERED: guaiFENesin 600 MG TABLET.ER (FP) PO PRN (17:54)
[2022-10-29] MEDS ORDERED: NALOXONE HCL 0.4 MG/ML VIAL IVPUSH PRN (17:54)
[2022-10-29] MEDS ORDERED: COLLOIDAL OATMEAL 1 BAR EACH TP PRN (17:54)
[2022-10-29] MEDS ORDERED: METHOCARBAMOL 500 MG TABLET PO PRN (17:54)
[2022-10-29] MEDS ORDERED: MAG HYDROX/AL HYDROX/SIMETH 30 ML UNIT-DOSE CUP PO PRN (17:54)
[2022-10-29] MEDS ORDERED: AMMONIUM LACTATE 12% LOTION 225 GM BOTTLE TP PRN (17:54)
[2022-10-29] MEDS ORDERED: NALOXONE HCL (KLOXXADO) 8 MG SPRAY NS PRN (17:54)
[2022-10-29] MEDS ORDERED: IBUPROFEN 600 MG TABLET (FP) PO PRN (17:54)
[2022-10-29] MEDS: MELATONIN 5 MG TABLETS PO SCH (21:18)
[2022-10-29] MEDS: ATORVASTATIN CA 40 MG TABLET (FP) PO SCH (21:18)
[2022-10-29] MEDS: THIAMINE HCL 100 MG TABLET (FP) PO SCH (21:18)
[2022-10-30] MEDS: ASPIRIN 81 MG CHEWABLE TABLETS PO SCH (09:49)
[2022-10-30] MEDS: PRENATAL VITAMINS W/ FOLIC ACID TABLET (FP) PO SCH (09:49)
[2022-10-30] MEDS: LISINOPRIL 5 MG TABLET PO SCH (09:50)
[2022-10-30] MEDS: CLOPIDOGREL BISULFATE 75 MG TABLET (FP) PO SCH (09:51)
[2022-10-30] MEDS ORDERED: metoPROLOL SUCCINATE 25 MG TAB.SR.24H (FP) PO SCH (10:00)
[2022-10-30] MEDS: NICOTINE 21 MG/24 HOURS TOPICAL PATCH TD PRN (12:21)
[2022-10-30] MEDS ORDERED: ATORVASTATIN CA 20 MG TABLET (FP) ONE (18:52)
[2022-10-30] MEDS: MELATONIN 5 MG TABLETS PO SCH (21:27)
[2022-10-30] MEDS: ATORVASTATIN CA 40 MG TABLET (FP) PO SCH (21:27)
[2022-10-30] MEDS: THIAMINE HCL 100 MG TABLET (FP) PO SCH (21:28)
[2022-10-31] MEDS: hydrOXYzine PAMOATE 25 MG CAPSULE (FP) PO PRN (06:07)
[2022-10-31] MEDS ORDERED: NICOTINE POLACRILEX 4 MG GUM BUC PRN (08:47)
[2022-10-31] MEDS ORDERED: NICOTINE 10 MG CARTRIDGE (INHALER) IH PRN (08:47)
[2022-10-31] MEDS: LISINOPRIL 5 MG TABLET PO SCH (10:24)
[2022-10-31] MEDS: ASPIRIN 81 MG CHEWABLE TABLETS PO SCH (10:24)
[2022-10-31] MEDS: PRENATAL VITAMINS W/ FOLIC ACID TABLET (FP) PO SCH (10:24)
[2022-10-31] MEDS: CLOPIDOGREL BISULFATE 75 MG TABLET (FP) PO SCH (10:24)
[2022-10-31] MEDS: NICOTINE 21 MG/24 HOURS TOPICAL PATCH TD PRN (10:26)
[2022-10-31] MEDS: TOLNAFTATE 1% CREAM 15 GM TUBE TP SCH ×2 (14:34→21:24)
[2022-10-31] MEDS ORDERED: NALTREXONE HCL 50 MG TABLET PO SCH (14:45)
[2022-10-31] MEDS: MELATONIN 5 MG TABLETS PO SCH (21:23)
[2022-10-31] MEDS: THIAMINE HCL 100 MG TABLET (FP) PO SCH (21:23)
[2022-10-31] MEDS: ATORVASTATIN CA 40 MG TABLET (FP) PO SCH (21:23)
[2022-11-01] MEDS: hydrOXYzine PAMOATE 25 MG CAPSULE (FP) PO PRN ×2 (06:33→21:19)
[2022-11-01] MEDS: PRENATAL VITAMINS W/ FOLIC ACID TABLET (FP) PO SCH (10:42)
[2022-11-01] MEDS: NALTREXONE HCL 50 MG TABLET PO SCH (10:42)
[2022-11-01] MEDS: CLOPIDOGREL BISULFATE 75 MG TABLET (FP) PO SCH (10:42)
[2022-11-01] MEDS: ASPIRIN 81 MG CHEWABLE TABLETS PO SCH (10:42)
[2022-11-01] MEDS: LISINOPRIL 5 MG TABLET PO SCH (10:43)
[2022-11-01] MEDS: NICOTINE 21 MG/24 HOURS TOPICAL PATCH TD PRN (10:45)
[2022-11-01] MEDS: TOLNAFTATE 1% CREAM 15 GM TUBE TP SCH ×2 (11:16→21:20)
[2022-11-01] MEDS: ATORVASTATIN CA 40 MG TABLET (FP) PO SCH (21:19)
[2022-11-01] MEDS: THIAMINE HCL 100 MG TABLET (FP) PO SCH (21:19)
[2022-11-01] MEDS: MELATONIN 5 MG TABLETS PO SCH (21:19)
[2022-11-02] MEDS: LISINOPRIL 5 MG TABLET PO SCH (10:27)
[2022-11-02] MEDS: ASPIRIN 81 MG CHEWABLE TABLETS PO SCH (10:27)
[2022-11-02] MEDS: PRENATAL VITAMINS W/ FOLIC ACID TABLET (FP) PO SCH (10:27)
[2022-11-02] MEDS: NALTREXONE HCL 50 MG TABLET PO SCH (10:27)
[2022-11-02] MEDS: CLOPIDOGREL BISULFATE 75 MG TABLET (FP) PO SCH (10:27)
[2022-11-02] MEDS: TOLNAFTATE 1% CREAM 15 GM TUBE TP SCH ×2 (10:28→21:03)
[2022-11-02] MEDS: NICOTINE 21 MG/24 HOURS TOPICAL PATCH TD PRN (10:29)
[2022-11-02] MEDS: SUVOREXANT 5 MG TABLET PO PRN (21:02)
[2022-11-02] MEDS: THIAMINE HCL 100 MG TABLET (FP) PO SCH (21:02)
[2022-11-02] MEDS: ATORVASTATIN CA 40 MG TABLET (FP) PO SCH (21:02)
[2022-11-03] MEDS: ACETAMINOPHEN 325 MG TABLET (FP) PO PRN (06:11)
[2022-11-03] MEDS: ASPIRIN 81 MG CHEWABLE TABLETS PO SCH (10:00)
[2022-11-03] MEDS: PRENATAL VITAMINS W/ FOLIC ACID TABLET (FP) PO SCH (10:00)
[2022-11-03] MEDS: NALTREXONE HCL 50 MG TABLET PO SCH (10:00)
[2022-11-03] MEDS: CLOPIDOGREL BISULFATE 75 MG TABLET (FP) PO SCH (10:00)
[2022-11-03] MEDS: LISINOPRIL 5 MG TABLET PO SCH (10:01)
[2022-11-03] MEDS: TOLNAFTATE 1% CREAM 15 GM TUBE TP SCH ×2 (10:01→21:12)
[2022-11-03] MEDS: NICOTINE 21 MG/24 HOURS TOPICAL PATCH TD PRN (10:02)
[2022-11-03] MEDS: THIAMINE HCL 100 MG TABLET (FP) PO SCH (21:11)
[2022-11-03] MEDS: ATORVASTATIN CA 40 MG TABLET (FP) PO SCH (21:11)
[2022-11-03] MEDS: SUVOREXANT 5 MG TABLET PO PRN (21:12)
[2022-11-04] MEDS: LISINOPRIL 5 MG TABLET PO SCH (10:06)
[2022-11-04] MEDS: ASPIRIN 81 MG CHEWABLE TABLETS PO SCH (10:06)
[2022-11-04] MEDS: PRENATAL VITAMINS W/ FOLIC ACID TABLET (FP) PO SCH (10:06)
[2022-11-04] MEDS: NALTREXONE HCL 50 MG TABLET PO SCH (10:06)
[2022-11-04] MEDS: CLOPIDOGREL BISULFATE 75 MG TABLET (FP) PO SCH (10:06)
[2022-11-04] MEDS: TOLNAFTATE 1% CREAM 15 GM TUBE TP SCH ×2 (10:06→22:05)
[2022-11-04] MEDS: NICOTINE 21 MG/24 HOURS TOPICAL PATCH TD PRN (10:07)
[2022-11-04] MEDS: ATORVASTATIN CA 40 MG TABLET (FP) PO SCH (22:04)
[2022-11-04] MEDS: SUVOREXANT 5 MG TABLET PO PRN (22:04)
[2022-11-04] MEDS: THIAMINE HCL 100 MG TABLET (FP) PO SCH (22:04)
[2022-11-05] MEDS: NALTREXONE HCL 50 MG TABLET PO SCH (09:47)
[2022-11-05] MEDS: PRENATAL VITAMINS W/ FOLIC ACID TABLET (FP) PO SCH (09:47)
[2022-11-05] MEDS: CLOPIDOGREL BISULFATE 75 MG TABLET (FP) PO SCH (09:47)
[2022-11-05] MEDS: ASPIRIN 81 MG CHEWABLE TABLETS PO SCH (09:47)
[2022-11-05] MEDS: LISINOPRIL 5 MG TABLET PO SCH (09:47)
[2022-11-05] MEDS: TOLNAFTATE 1% CREAM 15 GM TUBE TP SCH ×2 (09:48→21:12)
[2022-11-05] MEDS: NICOTINE 21 MG/24 HOURS TOPICAL PATCH TD PRN (09:49)
[2022-11-05] MEDS: ATORVASTATIN CA 40 MG TABLET (FP) PO SCH (21:11)
[2022-11-05] MEDS: THIAMINE HCL 100 MG TABLET (FP) PO SCH (21:11)
[2022-11-05] MEDS: SUVOREXANT 5 MG TABLET PO PRN (21:12)
[2022-11-06 09:18] VITALS: RESP 18
[2022-11-06] MEDS: ASPIRIN 81 MG CHEWABLE TABLETS PO SCH (10:29)
[2022-11-06] MEDS: NALTREXONE HCL 50 MG TABLET PO SCH (10:29)
[2022-11-06] MEDS: CLOPIDOGREL BISULFATE 75 MG TABLET (FP) PO SCH (10:29)
[2022-11-06] MEDS: PRENATAL VITAMINS W/ FOLIC ACID TABLET (FP) PO SCH (10:29)
[2022-11-06] MEDS: TOLNAFTATE 1% CREAM 15 GM TUBE TP SCH ×2 (10:29→21:29)
[2022-11-06] MEDS: NICOTINE 21 MG/24 HOURS TOPICAL PATCH TD PRN (10:30)
[2022-11-06] MEDS: LISINOPRIL 5 MG TABLET PO SCH (12:22)
[2022-11-06] MEDS: THIAMINE HCL 100 MG TABLET (FP) PO SCH (21:28)
[2022-11-06] MEDS: ATORVASTATIN CA 40 MG TABLET (FP) PO SCH (21:28)
[2022-11-06] MEDS: SUVOREXANT 5 MG TABLET PO PRN (21:29)
[2022-11-07] MEDS: ACETAMINOPHEN 325 MG TABLET (FP) PO PRN (06:23)
[2022-11-07 06:46] VITALS: TEMP 97.7
[2022-11-07 08:51] VITALS: BP 134/78; PULSE 84
[2022-11-07] MEDS: ASPIRIN 81 MG CHEWABLE TABLETS PO SCH (09:41)
[2022-11-07] MEDS: CLOPIDOGREL BISULFATE 75 MG TABLET (FP) PO SCH (09:41)
[2022-11-07] MEDS: NALTREXONE HCL 50 MG TABLET PO SCH (09:41)
[2022-11-07] MEDS: LISINOPRIL 5 MG TABLET PO SCH (09:41)
[2022-11-07] MEDS: TOLNAFTATE 1% CREAM 15 GM TUBE TP SCH (09:41)
[2022-11-07] MEDS: PRENATAL VITAMINS W/ FOLIC ACID TABLET (FP) PO SCH (09:41)
[2022-11-07] MEDS: NICOTINE 21 MG/24 HOURS TOPICAL PATCH TD PRN (09:42)
== END 2022-11-07 11:42 | disposition left against medical advice (07) | DRG 770 ==
LOC: YASAS 14:30 → Y3W 14:31
PROVIDERS: ADMIT Allergy & Immunology; ATTEND Psychiatry & Neurology Pain Medicine
PROC: HZ42ZZZ Group Counseling for Substance Abuse Treatment, Cognitive-Behavioral (ICD-10-PCS; principal; 2022-10-29)
DX: F10.20 Alcohol dependence, uncomplicated (principal); F14.20 Cocaine dependence, uncomplicated; F12.20 Cannabis dependence, uncomplicated; F17.210 Nicotine dependence, cigarettes, uncomplicated; F19.282 Other psychoactive substance dependence with psychoactive substance-induced sleep disorder; F41.8 Other specified anxiety disorders; I25.10 Atherosclerotic heart disease of native coronary artery without angina pectoris; I11.0 Hypertensive heart disease with heart failure; I50.9 Heart failure, unspecified; I25.2 Old myocardial infarction; M54.50 Low back pain, unspecified; G89.29 Other chronic pain; Z79.02 Long term (current) use of antithrombotics/antiplatelets
CPT/HCPCS: 36415; 86803

== ENCOUNTER 2023-08-03 12:15 | Inpatient (IN) | payer OTHER ==
[2023-08-03 13:01] VITALS: BMI 20.2
[2023-08-03] MEDS ORDERED: LOPERAMIDE HCL 2 MG CAPSULE PO PRN (13:41)
[2023-08-03] MEDS ORDERED: MAGNESIUM HYDROX 2400MG/30ML ORAL SUSPENSION 30 ML CUP PO PRN (13:41)
[2023-08-03] MEDS ORDERED: NALOXONE HCL (KLOXXADO) 8 MG SPRAY NS PRN (13:41)
[2023-08-03] MEDS ORDERED: NALOXONE HCL 0.4 MG/ML VIAL IM PRN (13:41)
[2023-08-03] MEDS ORDERED: BENZONATATE 200 MG CAPSULE PO PRN (13:41)
[2023-08-03] MEDS ORDERED: BENZOCAINE/MENTHOL (CHLORASEPTIC ) LOZENGE MM PRN (13:41)
[2023-08-03] MEDS ORDERED: POLYETHYLENE GLYCOL (HEALTHYLAX) 3350 17 GM PACKET PO PRN (13:41)
[2023-08-03] MEDS ORDERED: IBUPROFEN 400 MG TABLET (FP) PO PRN (13:41)
[2023-08-03] MEDS ORDERED: guaiFENesin 600 MG TABLET.ER (FP) PO PRN (13:41)
[2023-08-03] MEDS: NICOTINE 21 MG/24 HOURS TOPICAL PATCH TD SCH (14:52)
[2023-08-03] MEDS: PRENATAL VITAMINS W/ FOLIC ACID TABLET (FP) PO SCH (14:52)
[2023-08-03] MEDS ORDERED: NICOTINE 21 MG/24 HOURS TOPICAL PATCH TD SCH (15:00)
[2023-08-03] MEDS: IBUPROFEN 600 MG TABLET (FP) PO PRN (17:56)
[2023-08-03] MEDS: CLOPIDOGREL BISULFATE 75 MG TABLET (FP) PO SCH (17:56)
[2023-08-03] MEDS: ASPIRIN 81 MG CHEWABLE TABLETS PO SCH (17:56)
[2023-08-03] MEDS: ACETIC ACID 2% OTIC SOLN 15ML BOTTLE AS SCH (21:33)
[2023-08-03] MEDS: MELATONIN 5 MG TABLETS PO SCH (21:35)
[2023-08-03] MEDS: THIAMINE HCL 100 MG TABLET (FP) PO SCH (21:35)
[2023-08-03] MEDS: ATORVASTATIN CA 40 MG TABLET (FP) PO SCH (21:37)
[2023-08-03] MEDS ORDERED: MELATONIN 5 MG TABLETS PO SCH (22:00)
[2023-08-04] MEDS: hydrOXYzine PAMOATE 25 MG CAPSULE (FP) PO PRN (01:41)
[2023-08-04] MEDS: FOLIC ACID 1 MG TABLET (FP) PO SCH (10:45)
[2023-08-04] MEDS: LISINOPRIL 5 MG TABLET PO SCH (10:45)
[2023-08-04 12:13] LABS: HEMOGLOBIN 13.1 GM/dL (11.7-16.9); MCH 33.7 pg (25.7-33.7); MCHC 33.7 g/dl (32.0-35.9); MEAN CELL VOLUME 100.1 fl (80-96); MEAN PLT VOLUME 8.7 fl (7.5-11.1); PLATELET COUNT 251 10^3/uL (134-434); RBC 3.89 M/mm3 (4.00-5.60); RDW 13.2 % (11.9-15.9); WHITE BLOOD COUNT 4.1 K/mm3 (4.0-10.0)
[2023-08-04 12:44] LABS: CHLORIDE 107 mmol/L (98-107); POTASSIUM 4.5 mmol/L (3.5-5.1); SODIUM 137 mmol/L (136-145)
[2023-08-04 12:47] LABS: ALBUMIN 3.5 g/dl (3.4-5.0); ANION GAP 3 mmol/L (4-13); CALCIUM 8.8 mg/dL (8.5-10.1); CO2 27 mmol/L (21-32)
[2023-08-04 12:48] LABS: BLOOD UREA NITROGEN 18.3 mg/dL (7-18)
[2023-08-04 12:50] LABS: SGPT/ALT 27 U/L (13-61)
[2023-08-04 12:51] LABS: SGOT/AST 20 U/L (15-37)
[2023-08-04 12:52] LABS: BILIRUBIN,TOTAL 0.4 mg/dL (0.2-1); SYPHILIS W/ RPR CONF NON-REACTIVE (NONREACTIVE); TOT PROT 6.9 g/dl (6.4-8.2)
[2023-08-04 12:54] LABS: ALK PHOS 48 U/L (45-117)
[2023-08-04 12:55] LABS: GLUCOSE,RANDOM 43 mg/dL (74-106)
[2023-08-04] MEDS: ACETIC ACID AS SCH (15:43)
[2023-08-04] MEDS: HYDROCORTISONE AS SCH (15:43)
[2023-08-04] MEDS: SUVOREXANT 10 MG TABLET PO PRN (21:06)
[2023-08-06 12:10] LABS: EPI CELLS 23 /uL (0-25.1); HYALINE CASTS 26 /uL (0-3.1); PH,URINE 5.5 (5.0-8.0); URINE APPEARANCE CLOUDY; URINE BACTERIA 32 /uL (0-1359); URINE BILIRUBIN NEGATIVE (NEGATIVE); URINE COLOR DK YELLOW; URINE GLUCOSE (UA) 1+ (NEGATIVE); URINE KETONE TRACE (NEGATIVE); URINE LEUK ESTERASE 2+ (NEGATIVE); URINE NITRITE NEGATIVE (NEGATIVE); URINE PROTEIN 1+ (NEGATIVE); URINE RBC 36 /uL (0-23.9); URINE WBC 879 /uL (0-25.8)
[2023-08-06] MEDS: MAG HYDROX/AL HYDROX/SIMETH 30 ML UNIT-DOSE CUP PO PRN (12:37)
[2023-08-06] MEDS: SUVOREXANT 10 MG TABLET PO PRN (21:18)
[2023-08-08] MEDS: SUVOREXANT 10 MG TABLET PO PRN (21:04)
[2023-08-11] MEDS: ACETAMINOPHEN 325 MG TABLET (FP) PO PRN (06:03)
[2023-08-12] MEDS: SUVOREXANT 10 MG TABLET PO PRN (21:06)
[2023-08-14 08:09] VITALS: TEMP 97.3
[2023-08-14 09:25] VITALS: BP 117/70; PULSE 106; RESP 17
[2023-08-14] MEDS ORDERED: SUVOREXANT 10 MG TABLET PO PRN (22:00)
== END 2023-08-14 09:21 | disposition home or self-care (01) | DRG 772 ==
LOC: YASAS 12:15 → Y3NR 14:05 → Y3W 08-04 08:55
PROVIDERS: ADMIT Allergy & Immunology; ATTEND Psychiatry & Neurology Pain Medicine
PROC: HZ42ZZZ Group Counseling for Substance Abuse Treatment, Cognitive-Behavioral (ICD-10-PCS; principal; 2023-08-03)
DX: F10.20 Alcohol dependence, uncomplicated (principal); F14.20 Cocaine dependence, uncomplicated; F12.20 Cannabis dependence, uncomplicated; F17.210 Nicotine dependence, cigarettes, uncomplicated; F41.9 Anxiety disorder, unspecified; E78.5 Hyperlipidemia, unspecified; I25.10 Atherosclerotic heart disease of native coronary artery without angina pectoris; I10 Essential (primary) hypertension; I25.2 Old myocardial infarction; H72.92 Unspecified perforation of tympanic membrane, left ear; Z86.11 Personal history of tuberculosis; Z86.73 Personal history of transient ischemic attack (TIA), and cerebral infarction without residual deficits; Z91.410 Personal history of adult physical and sexual abuse
CPT/HCPCS: 36415; 80053; 80305; 80307; 81003; 85027; 86780; 86803; 87811